=== PATIENT | male | born 1935 | race Caucasian/White ===

== ENCOUNTER → 2016-11-02 | Outpatient (CLI) | payer OTHER ==
[~2016-11-02] MED LIST: ADVIN25/60 INH; AMLO-110 PO; ASPEC81 PO; FINA5TAB PO; GLUCTAB18 PO; HYDR12.55 PO; METO-217 PO; MULTCHW PO; OMEG10007 PO; SIMV20TA2 PO; TIOTCAP INH
--- NOTE | 2016-11-02 12:23 | DIAGNOSTIC IMAGING REPORT ---
CT OF THE CHEST WITHOUT IV CONTRAST CLINICAL HISTORY: Solitary pulmonary nodule. COMPARISON STUDY: 08/09/2016 CT DOSE: 333.48 mGycm TECHNIQUE: CT of the thorax was performed from the thoracic inlet to the lung bases. Images are reviewed in the axial, sagittal, and coronal planes. IV contrast was not administered for this examination. FINDINGS: Thyroid: Imaged portions of the thyroid gland are normal in appearance. Thoracic aorta: The thoracic aorta is normal in course and caliber, noting standard 3 vessel arch anatomy. Heart: There are coronary artery calcifications present. Lungs and pleural spaces: No pleural effusions are visualized. There is pulmonary emphysema. There is no lobar consolidation. There is a calcified left upper lobe granuloma. There is lingular atelectasis and thickening of the major fissure. There is a stable 12 mm subpleural nodule within the right upper lobe. Mediastinum: There is a mildly enlarged 12 mm precarinal lymph node. Elizabeth: There is a borderline enlarged right hilar lymph node Axilla: There is no evidence of pathologic axillary lymphadenopathy. Upper abdomen: There is a 17 mm upper pole left renal cyst Skeletal structures: There are no lytic or blastic osseous lesions. IMPRESSION: 1. Pulmonary emphysema 2. Stable 12 mm subpleural nodule within the right upper lobe 3. Mildly enlarged precarinal lymph node, and borderline enlarged right hilar lymph node, similar to the prior study Electronically signed by: Dontrell Polanco M.D. 11/02/2016 12:21 PM Dictated Date/Time: 11/02/2016 12:16 PM
== END | disposition home or self-care (01) ==
LOC: C.CTS 12:00
PROVIDERS: ATTEND Internal Medicine
DX: R91.1 Solitary pulmonary nodule (principal); J43.9 Emphysema, unspecified

== ENCOUNTER → 2017-04-24 | Outpatient (CLI) | payer OTHER ==
--- NOTE | 2017-04-24 14:30 | DIAGNOSTIC IMAGING REPORT ---
CT OF THE CHEST WITHOUT IV CONTRAST CLINICAL HISTORY: Solitary pulmonary nodule. COMPARISON STUDY: Chest CT July 24, 2010 and November 02, 2016 and PET/CT August 31, 2016. CT DOSE: 277.54 mGy.cm TECHNIQUE: Axial images of the chest were obtained without IV contrast. Images were reviewed in the axial, sagittal, and coronal planes. IV contrast was not administered for this examination. A dose lowering technique was utilized adhering to the principles of ALARA. FINDINGS: No enlarged axillary, mediastinal or hilar lymph nodes are present. The size of the heart is normal. There is moderate coronary artery calcification. There is extensive atherosclerotic plaque of the thoracic aorta. A trace left pleural effusion is noted. There is also a trace right pleural effusion. No pneumothorax is present. There is severe upper lobe predominant emphysema. A 1.4 cm irregular subpleural right upper lobe nodule shown image 118 of 376 has slightly increased in size since prior exam of November 02, 2016. Minimal groundglass and tree-in-bud nodules within the lingula are likely infectious or inflammatory. Bilateral lower lobe ground glass opacities favor atelectasis. No suspicious osseous lesions are present. 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 IMPRESSION: 1. Minimal increase in size of a 1.4 cm irregular subpleural right upper lobe nodule. This lesion is suspicious for a neoplasm, likely within the adenocarcinoma spectrum. 2. No thoracic lymphadenopathy. 3. Severe emphysema. 4. Minimal ground glass opacity with tree-in-bud nodules within the lingula which favors an infectious/inflammatory etiology. Electronically signed by: Moe Agustin M.D. 04/24/2017 2:29 PM Dictated Date/Time: 04/24/2017 2:13 PM
== END | disposition home or self-care (01) ==
LOC: C.CTS 13:47
PROVIDERS: ATTEND Internal Medicine
DX: R91.1 Solitary pulmonary nodule (principal); J43.9 Emphysema, unspecified

== ENCOUNTER → 2017-10-13 | Outpatient (CLI) | payer OTHER ==
--- NOTE | 2017-10-13 18:00 | DIAGNOSTIC IMAGING REPORT ---
CHEST 2 VIEWS ROUTINE CLINICAL HISTORY: R05 Productive cough dyspnea COMPARISON STUDY: 08/09/2016 FINDINGS: Chronic emphysematous change. Chronic basilar fibrotic as well as diffuse interstitial change. No acute or interval finding. No well-defined focal infiltrate. IMPRESSION: Chronic and emphysematous change. No acute process. The above report was generated using voice recognition software. It may contain grammatical, syntax or spelling errors. Electronically signed by: Damian Long M.D. 10/13/2017 5:58 PM Dictated Date/Time: 10/13/2017 5:58 PM
== END | disposition home or self-care (01) ==
LOC: C.RAD 17:25
PROVIDERS: ATTEND Nurse Practitioner Adult Health
DX: R05 Cough (principal)

== ENCOUNTER → 2017-10-30 | Outpatient (CLI) | payer OTHER ==
--- NOTE | 2017-10-30 10:59 | DIAGNOSTIC IMAGING REPORT ---
(CHEST) THORAX WITHOUT CLINICAL HISTORY: 82 years-old Male presenting with R91.1 Solitary pulmonary [id number]. TECHNIQUE: Multidetector CT imaging of the chest was performed without the use of intravenous contrast. IV contrast: None. A dose lowering technique was used consistent with the principles of ALARA (as low as reasonably achievable). COMPARISON: 04/24/2017. CT DOSE (mGy.cm): The estimated cumulative dose is 333.57 mGy.cm. 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 On soft tissue windows, normal thyroid and thoracic inlet. No axillary, supraclavicular, or mediastinal lymphadenopathy. Evaluation of the tyrel limited without intravenous contrast. Atherosclerosis of the aorta. Normal heart size. Coronary artery calcification. No pericardial or pleural effusion. Upper abdomen normal. On lung windows, paraseptal and centrilobular emphysematous changes most pronounced at the upper lobes. Persistent peripheral/subpleural solid 1.4 cm nodule in the posterior right upper lobe (series 4 image 108), unchanged since prior exam. Bandlike opacities in the right middle lobe and lingula favor atelectasis or scarring. Calcified granuloma noted in the left upper lobe. Mild bronchial wall thickening noted. No new nodule. Layering debris noted in the lower trachea. On bone windows, degenerative changes of the spine. Deformities of several posterior left ribs suggest prior fractures. IMPRESSION: 1. Stable appearance of the peripheral/subpleural 1.4 cm right upper lobe solid nodule. However, this nodule is new since chest CT from 2009. Despite the absence of FDG avidity of the lesion, continued surveillance or tissue sampling recommended. This would likely be amenable to CT-guided biopsy. 2. No new nodule. 3. Emphysema. 4. Tracheal debris and bronchial wall thickening could suggest chronic aspiration. Please refer to below summary of Fleischner Society 2017 recommendations for follow-up of incidental CT nodules (H Xiomy et al. Guidelines for management of incidental pulmonary nodules detected on CT images: From the Fleischner Society 2017. Radiology 2017; 284: 228-243.) SOLID NODULES Single nodule; size < 6 mm * Low risk patients: No routine follow-up * High risk patients: Optional CT at 12 months Single nodule; size 6-8 mm * Low risk patients: CT at 6-12 months, then consider CT at 18-24 months * High risk patients: CT at 6-12 months, then at 18-24 months Single nodule; size > 8 mm * Either low or high risk patients: Considered CT at 3 months, PET/CT, or tissue sampling Multiple nodules; size < 6 mm * Low risk patients: No routine follow up * High risk patients: Optional CT at 12 months Multiple nodules; size 6-8 mm * Low risk patients: CT at 3-6 months, then consider CT at 18-24 months * High risk patients: CT at 3-6 months, then at 18-24 months Multiple nodules; size > 8 mm * Low risk patients: CT at 3-6 months, then consider at 18-24 months * High risk patients: CT at 3-6 months, then at 18-24 months Note: These guidelines apply to incidental nodules. These guidelines do not apply to patients younger than 35 years, immunocompromised patients, or patients with cancer. * Low risk patients: Minimal or absent history of smoking and/or other known risk factors * High risk patients: History of smoking, exposure to other carcinogens, emphysema, fibrosis, upper lobe location, family history of lung cancer, etc. * If a nodule up to 8 mm is partly solid or is ground glass, further follow-up is required after 24 months to exclude possible slow growing adenocarcinoma. SUBSOLID NODULES Single ground-glass nodule * Nodule size < 6 mm: No routine follow-up * Nodule size > or = 6 mm: CT at 6-12 months to confirm persistence, then CT every 2 years until 5 years Single part-solid nodule * Nodule size < 6 mm: No routine follow-up * Nodules size > or = 6 mm: CT at 3-6 months to confirm persistence. If unchanged and solid component remains < 6 mm, annual CT should be performed for 5 years Multiple nodules * Nodule size < 6 mm: CT at 3-6 months. If stable, consider CT at 2 and 4 years. * Nodules size > or = 6 mm: CT at 3-6 months. Subsequent management based on the most suspicious nodule(s) Electronically signed by: Ignacio Persaud M.D. 10/30/2017 10:58 AM Dictated Date/Time: 10/30/2017 10:50 AM
== END | disposition home or self-care (01) ==
LOC: C.CTS 10:33
PROVIDERS: ATTEND Internal Medicine
DX: R91.1 Solitary pulmonary nodule (principal)

== ENCOUNTER → 2017-12-20 | Outpatient (CLI) | payer OTHER | END | disposition home or self-care (01) | LOC: C.LAB 11:49 | PROVIDERS: ATTEND Physician Assistant | DX: R05 Cough (principal) ==

== ENCOUNTER 2020-01-18 05:47 | Inpatient (IN) ==
[2020-01-18] MEDS ORDERED: ALBUT/IPRATROP 3MG/0.5MG NEB 3 ML VIAL NEB ONE (06:01)
[2020-01-18] MEDS ORDERED: methylPREDNISolone 125 MG/2 ML VIAL IV STA (06:01)
[2020-01-18] MEDS ORDERED: HydrALAZINE HCL 20 MG/ML VIAL IV ONE (06:06)
[2020-01-18 06:22] LABS: Basophils # (auto) 0.06 K/uL (0-0.2); Basophils % (auto) 0.8 %; Eosinophils # (auto) 0.86 K/uL (0-0.5); Eosinophils % (auto) 10.9 %; Hematocrit (blood only) 52.6 % (42-52); Hemoglobin 17.2 g/dL (14.0-18.0); Immature Granulocytes # (auto) 0.02 K/uL (0.00-0.02); Immature Granulocytes % (auto) 0.3 %; Lymphocytes # (auto) 1.93 K/uL (1.2-3.4); Lymphocytes % (auto) 24.4 %; Mean Corpuscular Hemoglobin 30.6 pg (25-34); Mean Corpuscular Hgb Conc 32.7 g/dL (32-36); Mean Corpuscular Volume 93.6 fL (80-100); Mean Platelet Volume 9.2 fL (7.4-10.4); Monocytes # (auto) 0.54 K/uL (0.11-0.59); Monocytes % (auto) 6.8 %; Neutrophils % (auto) 56.8 %; Platelet Count 136 K/uL (130-400); RDW Coefficient of Variation 14.2 % (11.5-14.5); RDW Standard Deviation 48.5 fL (36.4-46.3); Red Blood Count 5.62 M/uL (4.7-6.1); White Blood Count 7.91 K/uL (4.8-10.8)
[2020-01-18 06:33] LABS: Partial Thromboplastin Ratio 1.1; Partial Thromboplastin Time 29.8 Seconds (21.0-31.0)
[2020-01-18 06:38] LABS: Alanine Aminotransferase 30 U/L (12-78); Aspartate Aminotransferase 27 U/L (15-37); BUN Creatinine Ratio 20.5 (10-20); Blood Urea Nitrogen 26 mg/dl (7-18); Calcium 9.7 mg/dl (8.5-10.1); Carbon Dioxide 27 mmol/L (21-32); Chloride 110 mmol/L (98-107); Creatinine Clr Calc Pharmacy 41.8 ml/min; Est GFR (Non-African American) 51.8; Glucose 143 mg/dl (70-99); Magnesium 2.3 mg/dl (1.8-2.4); Potassium 4.2 mmol/L (3.5-5.1); Sodium 142 mmol/L (136-145)
[2020-01-18 06:43] LABS: Alkaline Phosphatase 96 U/L (45-117); Bilirubin,Total 0.5 mg/dl (0.2-1); NT Pro B Type Natriuretic Pept 336 pg/ml (0-1800); Troponin I < 0.015 ng/ml (0-0.045)
--- NOTE | 2020-01-18 07:05 | Emergency Department Note ---
History of Present Illness General Chief complaint: Shortness of Breath/Dyspnea Stated complaint: SOB Source: patient and EMS Mode of arrival: EMS Limitations: no limitations History of Present Illness Provider complaint: Shortness of breath Onset (ago): hour(s) This patient is an 84-year-old male who presents to the emergency department with complaints of increasing shortness of breath and cough. Patient states he has a history of COPD and quit smoking in the . Patient feels that the symptoms were rather sudden in onset. He denies any significant sputum, fevers or pain in the chest. Patient denies any recent sick contacts. Home Medications Home Medications Medication Instructions Recorded Confirmed Type glucosamine-chondroitin 250 mg-200 1 tab PO BID tab 05/17/19 01/18/20 History mg tablet multivitamin 1 tab PO QAM 05/17/19 01/18/20 History omega-3 acid ethyl esters 1 gram 1 cap PO QAM cap 05/17/19 01/18/20 History capsule aspirin [Aspirin Low Dose] 81 mg PO QAM 06/25/19 01/18/20 History amlodipine 5 mg tablet 5 mg PO DAILY #90 tab 11/01/19 01/18/20 Rx diclofenac sodium 1 % topical gel 4 gm TOP QID PRN gm 12/04/19 01/18/20 History glycopyrrolate 9 mcg-formoterol 2 puffs INH BID #3 inhaler 12/04/19 01/18/20 Rx 4.8 mcg HFA aerosol inhaler hydrochlorothiazide 12.5 mg tablet 12.5 mg PO DAILY #90 tab 12/05/19 01/18/20 Rx guaifenesin 600 mg tablet, 600 mg PO BID #180 tab 12/12/19 01/18/20 Rx extended release 12 hr finasteride 5 mg tablet 5 mg PO DAILY #90 tab 12/20/19 01/18/20 Rx metoprolol succinate 100 mg 100 mg PO DAILY #90 tab 01/07/20 01/18/20 Rx tablet,extended release 24 hr albuterol sulfate 90 mcg/actuation 2 puffs INH Q4H PRN #3 inhaler 01/13/20 01/18/20 Rx aerosol inhaler prednisone 10 mg tablet See Rx Instructions PO DAILY #36 01/17/20 01/18/20 Rx tab green tea leaf extract [Green Tea] 500 mg PO DAILY 01/18/20 01/18/20 History oyjoycoi-vni-XL-lycopen-lutein 1 tab PO DAILY 01/18/20 01/18/20 History [Centrum Silver Ultra Men's] saw palmto frt xtr-zinc [place] 3 cap PO DAILY 01/18/20 01/18/20 History [Saw Jones Extract (w-zinc)] Allergies Allergy/AdvReac Type Severity Reaction Status Date / Time No Known Drug Allergies Allergy Unknown Verified 01/18/20 06:55 Past Med/Surg History Medical History AAA (abdominal aortic aneurysm) (Inactive) Aorto-iliac disease (Inactive) BPH (benign prostatic hyperplasia) Chronic obstructive pulmonary disease follows [facility]. rarely uses rescue inh Glaucoma of both eyes Hyperlipidemia Hypertension (Chronic) NSVT (nonsustained ventricular tachycardia) (Chronic) pt unaware of this Osteoarthritis Solitary pulmonary nodule follows [facility] [place] Surgical History H/O aortic aneurysm repair Oct 1999- suzy romero / follows Dr. Olivares [facility] [place] History of AAA (abdominal aortic aneurysm) repair (Inactive) History of back surgery (Resolved) History of cataract surgery LEFT History of colonoscopy History of herniorrhaphy (Resolved) History of lumbar laminectomy Inguinal hernia Family History Brother Hypertension Osteoarthritis Unknown Cancer Other Emphysema of lung Social History Preferred Language: Georgian Communication Ability: Effective Decision Analyst Required: No Beliefs That Will Affect Care: None marital status: Current Living Situation: Spouse Feels Safe at Home: Yes Smoking Status: Never smoker Tobacco Type: cigarettes ; Cigarettes Per Day: 20 ; Second Hand Exposure: No ; Hx Alcohol Use: Yes Alcohol type: beer and hard liquor Hx Substance Use: No Seatbelt Use: always Review of Systems See HPI for pertinent positives & negatives. and A total of 10 systems reviewed and were otherwise negative Physical Exam Vital Signs Vital Signs - 24 hr 01/18/20 05:51 01/18/20 06:03 01/18/20 06:05 Temperature 36.7 C Temperature Source Oral Pulse Rate 100 H 95 H Pulse Rate [Left Finger] Respiratory Rate 24 23 Respiratory Effort / Characteristics Blood Pressure 217/106 H 219/119 H Blood Pressure Mean 143 180 Blood Pressure Position Sitting Pulse Oximetry 85 L 85 L 93 Oxygen Delivery Method Room Air Nasal Cannula Oxygen Flow Rate Sepsis Recent Fever Within 48 Hours No Sepsis New/Unexplained Change in Mental Status No Sepsis Action Taken by Nursing No Action Required Oxygen Flow Rate - Titration 2 Pulse Oximetry Post Tiitration 91 01/18/20 06:08 01/18/20 06:15 01/18/20 06:16 Temperature Temperature Source Pulse Rate 90 Pulse Rate [Left Finger] Respiratory Rate 24 Respiratory Effort / Characteristics Labored Blood Pressure 192/98 H Blood Pressure Mean 115 Blood Pressure Position Pulse Oximetry 95 Oxygen Delivery Method Nasal Cannula Oxygen Flow Rate Sepsis Recent Fever Within 48 Hours Sepsis New/Unexplained Change in Mental Status Sepsis Action Taken by Nursing Oxygen Flow Rate - Titration Pulse Oximetry Post Tiitration 01/18/20 06:20 01/18/20 06:30 Temperature Temperature Source Pulse Rate 88 Pulse Rate [Left Finger] 88 Respiratory Rate 26 H 26 H Respiratory Effort / Characteristics Spontaneous Labored Blood Pressure 187/97 H Blood Pressure Mean 132 Blood Pressure Position Pulse Oximetry 95 97 Oxygen Delivery Method Nasal Cannula Oxygen Flow Rate 3 Sepsis Recent Fever Within 48 Hours Sepsis New/Unexplained Change in Mental Status Sepsis Action Taken by Nursing Oxygen Flow Rate - Titration Pulse Oximetry Post Tiitration Vital signs reviewed. General: Generally well-appearing 84-year-old male, increased work of breathing. HEENT: No scleral icterus, PERRLA, neck supple. Atraumatic. Cardiovascular: Regular rate and rhythm, no extra sounds. Pulmonary: Coarse breath sounds bilaterally, increased work of breathing. Abdomen: Soft, nontender, nondistended, positive bowel sounds. Musculoskeletal: Atraumatic, no peripheral edema. Neurologic: Patient awake alert and oriented x 3 Skin: Warm, dry, no rash Course Administered Medications Discontinued Medications Albuterol (Duoneb) 12 ml NEB ONE ONE Stop: 01/18/20 06:02 Last Admin: 01/18/20 06:19 Dose: 12 ml Documented by: [id number] Hydralazine HCl (Hydralazine Hcl) 10 mg IV NOW ONE Stop: 01/18/20 06:07 Last Admin: 01/18/20 06:13 Dose: 10 mg Documented by: [id number] Methylprednisolone (Solumedrol) 125 mg IV NOW STA Stop: 01/18/20 06:02 Last Admin: 01/18/20 06:13 Dose: 125 mg Documented by: [id number] Medical Decision Making Differential Diagnosis Differential diagnosis: Etiologies such as infections, reactive airway disease, COPD, pneumonia, pleural effusion, pulmonary edema, ARDS, pneumothorax, CHF, cardiac ischemia, cardiac tamponade, dysrhythmia, anemia, pulmonary embolism, musculoskeletal, gastrointestinal process, as well as others were entertained. Medical Records Attestation: I reviewed the patient's medical records. Home Medications Current Medication List: was personally reviewed by me Laboratory Data Attestation: I reviewed the patient's lab results. Result diagrams: 01/18/20 06:15 01/18/20 06:15 Lab Results 01/18/20 01/18/20 01/18/20 Range/Units 06:15 06:15 06:15 WBC 7.91 (4.8-10.8) K/uL RBC 5.62 (4.7-6.1) M/uL Hgb 17.2 (14.0-18.0) g/dL Hct 52.6 H (42-52) % MCV 93.6 (80-100) fL MCH 30.6 (25-34) pg MCHC 32.7 (32-36) g/dL RDW Std Deviation 48.5 H (36.4-46.3) fL RDW Coeff of Conchis 14.2 (11.5-14.5) % Plt Count 136 (130-400) K/uL MPV 9.2 (7.4-10.4) fL Immature Gran % (Auto) 0.3 % Neut % (Auto) 56.8 % Lymph % (Auto) 24.4 % Callaway % (Auto) 6.8 % Eos % (Auto) 10.9 % Baso % (Auto) 0.8 % Immature Gran # (Auto) 0.02 (0.00-0.02) K/uL Neut # (Auto) 4.50 (1.4-6.5) K/uL Lymph # (Auto) 1.93 (1.2-3.4) K/uL Callaway # (Auto) 0.54 (0.11-0.59) K/uL Eos # (Auto) 0.86 H (0-0.5) K/uL Baso # (Auto) 0.06 (0-0.2) K/uL PT 11.0 (9.0-12.0) Seconds INR 1.0 (0.9-1.1) APTT 29.8 (21.0-31.0) Seconds PTT Ratio 1.1 Sodium 142 (136-145) mmol/L Potassium 4.2 (3.5-5.1) mmol/L Chloride 110 H (98-107) mmol/L Carbon Dioxide 27 (21-32) mmol/L Anion Gap 5.0 (3-11) BUN 26 H (7-18) mg/dl Creatinine 1.25 (0.6-1.4) mg/dl Est Cr Clr Drug Dosing 41.8 ml/min Est GFR ( Amer) 60.0 Est GFR (Non-Af Amer) 51.8 BUN/Creatinine Ratio 20.5 H (10-20) Glucose 143 H (70-99) mg/dl Calcium 9.7 (8.5-10.1) mg/dl Magnesium 2.3 (1.8-2.4) mg/dl Total Bilirubin 0.5 (0.2-1) mg/dl AST 27 (15-37) U/L ALT 30 (12-78) U/L Alkaline Phosphatase 96 (45-117) U/L Troponin I < 0.015 (0-0.045) ng/ml NT-Pro-B Natriuret Pep 336 (0-1800) pg/ml Total Protein 8.0 (6.4-8.2) gm/dl Albumin 4.0 (3.4-5.0) gm/dl Globulin 4.0 (2.5-4.0) gm/dl Albumin/Globulin Ratio 1.0 (0.9-2) Imaging Data Radiologist's Impression: Chest x-ray to my interpretation reveals no focal lung consolidation or failure, likely chronic perihilar interstitial changes. ECG Data Attestation: I personally reviewed and interpreted this ECG as follows: Indication: + SOB/dyspnea Rate (beats per minute): 103 Rhythm: + atrial fibrillation ECG Intervals/blocks: + Normal QT ECG ST segments: + T-wave inversions, + Nonspecific ST abnormalities and + repolarization abnormalities Blood Pressure Blood Pressure Findings: Normal blood pressure Blood Pressure Disposition: Referred to patients primary care provider JUSTEN Narrative An order for cardiac monitoring was placed and the patient is found to be in a sinus tachycardia at 100 bpm. IV access was obtained and laboratory work was drawn. The patient was placed on the wharf tender head. EKG reveals a sinus tachycardia without evidence of acute ischemia. Patient was placed on an hour-long DuoNeb treatment and given 125 mg of IV Solu-Medrol. Chest x-ray was performed and there is no evidence of focal infiltrate or failure. Patient was somewhat hypoxic and placed on nasal cannula oxygen with success. He will be evaluated by the hospitalist service for further management. Impression & Plan COPD exacerbation Discharge Plan Visit Data Chief Complaint: Shortness of Breath/Dyspnea Stated Complaint: SOB ED Provider: July Shah Discharge Problem: COPD exacerbation Forms Stand Alone Forms: Heekya Prescriptions Prescriptions: No Action amlodipine 5 mg tablet 5 mg PO DAILY Qty: 90 RF: 3 hydrochlorothiazide 12.5 mg tablet 12.5 mg PO DAILY Qty: 90 RF: 3 guaifenesin [Mucinex] 600 mg tablet extended release 12hr 600 mg PO BID Qty: 180 RF: 1 metoprolol succinate 100 mg tablet extended release 24 hr 100 mg PO DAILY Qty: 90 RF: 3 albuterol sulfate [Ventolin HFA] 90 mcg/actuation HFA aerosol inhaler 2 puffs INH Q4H PRN (Reason: Shortness Of Breath) Qty: 3 RF: 1 prednisone 10 mg tablet See Rx Instructions PO DAILY Qty: 36 RF: 0 finasteride 5 mg tablet 5 mg PO DAILY Qty: 90 RF: 3 diclofenac sodium 1 % gel 4 gm TOP QID PRN (Reason: pain) RF: 0 Bevespi Aerosphere 9-4.8 mcg HFA aerosol inhaler 2 puffs INH BID Qty: 3 RF: 1 omega-3 acid ethyl esters 1 gram capsule 1 cap PO QAM RF: 0 glucosamine-chondroitin 250-200 mg tablet 1 tab PO BID RF: 0 multivitamin [Daily Multi-Vitamin] tablet 1 tab PO QAM RF: 0 Saw Jones Extract (w-zinc) 160-15 mg Capsule 3 cap PO DAILY RF: 0 green tea leaf extract [Green Tea] 250 mg Capsule 500 mg PO DAILY RF: 0 Centrum Silver Ultra Men's 300-600-300 mcg Tablet 1 tab PO DAILY RF: 0 aspirin [Aspirin Low Dose] 81 mg Tablet,Delayed Release (Dr/Ec) 81 mg PO QA RF: 0
--- NOTE | 2020-01-18 07:44 | XRay Report ---
XR chest 1V portable CLINICAL HISTORY: 84 years-old Male presenting with Dyspnea. TECHNIQUE: Portable upright AP view of the chest was obtained. COMPARISON: 08/09/[address] from 11/19/2018. FINDINGS: Atherosclerosis of the aortic arch. Cardiac silhouette normal in size. Lungs may be mildly hyperinfla kaelyn. The subpleural right upper lobe nodule evident on prior CT is not well demonstrated by radiograp h. A possible candidate opacity is noted. No new focal opacity. No large effusion or pneumothorax. Fr acture deformities of posterior left ribs. Upper abdomen normal. IMPRESSION: 1. Findings suggest emphysema. No focal infiltrate to suggest pneumonia. 2. Subpleural right upper lung nodule evident on prior CT is not well demonstrated. ACT 112: Negative or not required by law. Electronically signed by: Ignacio Persaud M.D. 01/18/2020 7:43 AM
--- NOTE | 2020-01-18 08:21 | History & Physical Report ---
Date of Service January 18, 2020 Assessment & Plan (1) COPD exacerbation: Improving s/p O2, nebs, steroids in the ED c/w prior episodes per pt CXR: neg for acute CBC, PRP, trop, BNP neg Nebs scheduled, solumed 40mg BID Pt has already filled a prednisone taper [employer]IST and can use this on d/c (2) 1st degree AV block: Not seen on prior EKG in MUSE Tele monitor overnight Repeat EKG in AM No sx c/w symptomatic 1st degree AVB (3) Pulmonary nodule: Seen on prior imaging, not well visualized on CXR in ED If ongoing issues, t/c CT chest as this could be part of COPD exacerbation Quit smoking in 1999 (4) HTN (hypertension): continue home meds (5) Hyperlipidemia: continue home meds (6) BPH w urinary obs/LUTS: continue home meds (7) AAA (abdominal aortic aneurysm): s/p repair in 1999 Pt states he was told this was stable and no further f/u needed (8) Horseshoe kidney: noted (9) DVT prophylaxis: Lovenox for DVT proph History of Present Illness Primary Care Provider: Ignacio Alonzo MD 84 y/o M c/o SOB. Pt states that he had been doing fine with his breathing for quite some time. He had not used his albuterol for months, but on , he noted some SOB with exertion only. He used his albuterol inhaler and this helped that day, however yesterday he developed further SOB at rest and the albuterol was not as helpful. He follows with Vinnie Borja for his COPD and called the office. A prescription for a prednisone taper was called in for him, however he was waiting to start it until this AM and never took it. He states that his breathing got worse overnight and the albuterol was not helping him at all today, so he came to the ED. He states this feels similar to prior COPD exacerbations. Pt is not on home O2. He has had a bit of sputum production after prolonged SOB and wheezing, but no coughing outside of this. Pt denies fever, chest pain, abd pain, n/v/c/d, LE pain or swelling. Pt has been eating without issue. No loss of smell or taste. He states that his fell and broke 2 ribs recently, but otherwise is at her baseline. He has no sick contacts or travel. Pt was given nebs and steroids in the ED and states he feels "99% better". He has no current SOB or wheezing. Allergies Allergy/AdvReac Type Severity Reaction Status Date / Time No Known Drug Allergies Allergy Unknown Verified 01/18/20 06:55 Home Medications Home Medications Medication Instructions Recorded Confirmed Type glucosamine-chondroitin 250 mg-200 1 tab PO BID tab 05/17/19 01/18/20 History mg tablet multivitamin 1 tab PO QAM 05/17/19 01/18/20 History omega-3 acid ethyl esters 1 gram 1 cap PO QAM cap 05/17/19 01/18/20 History capsule aspirin [Aspirin Low Dose] 81 mg PO QAM 06/25/19 01/18/20 History amlodipine 5 mg tablet 5 mg PO DAILY #90 tab 11/01/19 01/18/20 Rx diclofenac sodium 1 % topical gel 4 gm TOP QID PRN gm 12/04/19 01/18/20 History glycopyrrolate 9 mcg-formoterol 2 puffs INH BID #3 inhaler 12/04/19 01/18/20 Rx 4.8 mcg HFA aerosol inhaler hydrochlorothiazide 12.5 mg tablet 12.5 mg PO DAILY #90 tab 12/05/19 01/18/20 Rx guaifenesin 600 mg tablet, 600 mg PO BID #180 tab 12/12/19 01/18/20 Rx extended release 12 hr finasteride 5 mg tablet 5 mg PO DAILY #90 tab 12/20/19 01/18/20 Rx metoprolol succinate 100 mg 100 mg PO DAILY #90 tab 01/07/20 01/18/20 Rx tablet,extended release 24 hr albuterol sulfate 90 mcg/actuation 2 puffs INH Q4H PRN #3 inhaler 01/13/20 01/18/20 Rx aerosol inhaler prednisone 10 mg tablet See Rx Instructions PO DAILY #36 01/17/20 01/18/20 Rx tab green tea leaf extract [Green Tea] 500 mg PO DAILY 01/18/20 01/18/20 History cnkytcbo-sbn-WD-lycopen-lutein 1 tab PO DAILY 01/18/20 01/18/20 History [Centrum Silver Ultra Men's] saw palmto frt xtr-zinc [place] 3 cap PO DAILY 01/18/20 01/18/20 History [Saw [place] Extract (w-zinc)] Past Med/Surg History Medical History AAA (abdominal aortic aneurysm) (Inactive) Aorto-iliac disease (Inactive) BPH (benign prostatic hyperplasia) Chronic obstructive pulmonary disease follows Jovany Borja. rarely uses rescue inh Glaucoma of both eyes Hyperlipidemia Hypertension (Chronic) NSVT (nonsustained ventricular tachycardia) (Chronic) pt unaware of this Osteoarthritis Solitary pulmonary nodule follows [facility] [place] Surgical History H/O aortic aneurysm repair Oct 1999- suzy romero / follows Dr. Olivares [facility] [place] History of AAA (abdominal aortic aneurysm) repair (Inactive) History of back surgery (Resolved) History of cataract surgery LEFT History of colonoscopy History of herniorrhaphy (Resolved) History of lumbar laminectomy Inguinal hernia Family History (Updated 01/18/20 @ 08:17 by Ivet Hu DO) Brother Hypertension Osteoarthritis Unknown Cancer Other Emphysema of lung Denies family history of Myocardial infarction Stroke Social History (Updated 01/18/20 @ 08:19 by Ivet Hu DO) Preferred Language: Nepali Communication Ability: Effective Shirt Sewer Required: No Beliefs That Will Affect Care: None marital status: Current Living Situation: Spouse Feels Safe at Home: Yes Smoking Status: Former smoker Tobacco Type: cigarettes ; packs per day: 1 ; Smoking End Date: 1999 ; Second Hand Exposure: No ; Hx Alcohol Use: Yes Alcohol type: beer and hard liquor Alcohol Intake Frequency Comment: 2 vodka cranberry drinks maybe 3-4 days a week Hx Substance Use: No Seatbelt Use: always Review of Systems Review of Systems: Pertinent positives and negatives reviewed in HPI--all others negative Physical Exam Constitutional: WD/WN, vitals as above Eyes: normal visual rivera by confrontation and + anicteric sclerae Neck: normal visual inspection and trachea midline Respiratory: normal respiratory effort; no respiratory distress Auscultation: + wheezes (diffuse, expiratory only, mild); no crackles Cardiovascular: Rate/Rhythm: regular rate and regular rhythm Gastrointestinal (Abdomen): Inspection/Auscultation: abdomen not distended Percussion/Palpation: abdomen soft; abdomen nontender Musculoskeletal: Head/Neck/Chest: normocephalic and head atraumatic negative for edema, peripheral pulses intact Skin: no rashes, warm and dry Neurologic: awake; not confused Speech / Cognition: normal speech Psychiatric: A+Ox3, euthymic affect Results & Data Results & Data ([facility]) Vital Signs (Past 12 Hours) Vital Signs Temp Pulse Pulse Resp BP Pulse Ox 01/18/20 07:30 87 24 132/66 95 01/18/20 07:00 86 24 155/78 H 95 01/18/20 06:30 88 26 H 187/97 H 97 01/18/20 06:20 88 26 H 95 01/18/20 06:16 90 24 192/98 H 95 01/18/20 06:05 95 H 23 219/119 H 93 01/18/20 06:03 85 L 01/18/20 05:51 36.7 C 100 H 24 217/106 H 85 L Diagnostic Findings CXR: neg for acute ECG Findings: + 1st degree AV block Code Status & VTE Plan Code Status Full code, although pt states no prolonged mechanical life support, feeding tubes, etc VTE Prophylaxis Plan VTE Prophylaxis will be ordered: Yes PG Care Time/CCT Total # of Minutes Spent Total Time Spent with Patient: Total time spent is greater than 50% in coordination of care (as documented) at patient's floor/unit and/or counseling patient: Coding Level of Care Code 14574 Initial Inpt Care Lvl 3 Diagnoses COPD exacerbation J44.1 1st degree AV block I44.0 Pulmonary nodule R91.1 HTN (hypertension) I10 Hypertension type: essential hypertension Hyperlipidemia E78.00; E78.0 Hyperlipidemia type: pure hypercholesterolemia BPH w urinary obs/LUTS N40.1; N13.8 AAA (abdominal aortic aneurysm) I71.4 Horseshoe kidney Q63.1 DVT prophylaxis Z29.9 (1) HTN (hypertension) Hypertension type: essential hypertension Qualified Code(s): I10 - Essential (primary) hypertension (2) Hyperlipidemia Hyperlipidemia type: pure hypercholesterolemia Qualified Code(s): E78.00 - Pure hypercholesterolemia, unspecified; E78.0 - Pure hypercholesterolemia
[2020-01-18] MEDS ORDERED: [UNRECOGNIZED DRUG - OTHER] PO SCH (10:05)
[2020-01-18] MEDS ORDERED: ALBUTEROL HFA 8 GM INHALER INH PRN (10:05)
[2020-01-18] MEDS ORDERED: DICLOFENAC SOD 1% GEL 100 GM TUBE EXT PRN (10:05)
[2020-01-18] MEDS ORDERED: NON-FORMULARY MEDICATION (Glucosamine-Chondroitin 1 TAB) PO SCH (10:05)
[2020-01-18] MEDS ORDERED: [UNRECOGNIZED DRUG - OTHER] PO SCH (10:05)
[2020-01-18] MEDS ORDERED: ONDANSETRON INJ 2 MG/ML 2 ML VIAL IV PRN (10:05)
[2020-01-18] MEDS ORDERED: ACETAMINOPHEN 325 MG TAB PO PRN (10:05)
[2020-01-18] MEDS ORDERED: MAGNESIUM HYDROXIDE SUSP 30 ML UDC PO PRN (10:05)
[2020-01-18] MEDS ORDERED: MULTIVIT MIN FA LYCOPEN LUTEIN PO SCH (10:05)
--- NOTE | 2020-01-18 10:50 | Electrocardiogram Report ---
Test Reason : Blood Pressure : / mmHG Vent. Rate : 091 BPM Atrial Rate : 091 BPM P-R Int : 216 ms QRS Dur : 076 ms QT Int : 352 ms P-R-T Axes : 074 062 062 degrees QTc Int : 432 ms Poor data quality, interpretation may be adversely affected Sinus rhythm with 1st degree A-V block Nonspecific ST abnormality Abnormal ECG When compared with ECG of 09-AUG-2016 12:35, Premature atrial complexes are no longer Present MI interval has increased Vent. rate has increased BY 33 BPM Confirmed by Roni Samaniego ([id number]) on 01/18/2020 10:50:33 AM Referred By: Confirmed By:Angus Samaniego
[2020-01-18] MEDS: ALBUT/IPRATROP 3MG/0.5MG NEB 3 ML VIAL NEB SCH ×4 (11:05→22:51)
[2020-01-18] MEDS: UMECLIDINIUM/VILANTEROL 62.5/25MCG 7 PUFFS/INHALER INH SCH (11:50)
[2020-01-18] MEDS: AMLODIPINE BESYLATE 5 MG TAB PO SCH (11:51)
[2020-01-18] MEDS: ENOXAPARIN INJ 40 MG/0.4 ML SYR SQ SCH (11:51)
[2020-01-18] MEDS: METOPROLOL SUCC 50MG EXT REL TAB PO SCH (11:51)
[2020-01-18] MEDS: OMEGA-3 (PURIFIED FISH OIL) 1 GM CAP PO SCH (11:51)
[2020-01-18] MEDS: ASPIRIN 81 MG ECTAB PO SCH (11:52)
[2020-01-18] MEDS: MULTIVITAMIN TAB PO SCH (11:52)
[2020-01-18] MEDS: hydroCHLOROthiazide 25 MG TAB PO SCH (11:52)
[2020-01-18] MEDS: guaiFENesin 600 MG TABCR PO SCH ×2 (11:52→20:01)
[2020-01-18] MEDS: FINASTERIDE 5 MG TAB PO SCH (11:52)
[2020-01-18 14:00] LABS: Appearance Urine Clear (Clear); Bilirubin Urine Negative (Negative); Blood Urine Negative (Negative); Color Urine Yellow; Glucose Urine UA Negative (Negative); Ketones Urine 1+ (Negative); Leukocyte Esterase Urine Trace (Negative); Nitrite Urine Negative (Negative); Protein Urine 2+ (Negative); RBC Urine Automated 0-4 /hpf (0-4); Urobilinogen Urine Negative (Negative)
[2020-01-18 14:32] LABS: Bacteria Urine Automated 1+ (Negative)
[2020-01-18] MEDS: methylPREDNISolone 40 MG in SYRINGE 0 ML IV SCH (16:48)
[2020-01-19] MEDS: ALBUT/IPRATROP 3MG/0.5MG NEB 3 ML VIAL NEB SCH ×6 (03:39→23:04)
[2020-01-19] MEDS: methylPREDNISolone 40 MG in SYRINGE 0 ML IV SCH ×2 (06:14→18:28)
[2020-01-19 07:03] LABS: Creatinine Clr Calc Pharmacy 34.4 ml/min; Est GFR (African American) 47.8; Est GFR (Non-African American) 41.2
[2020-01-19] MEDS: UMECLIDINIUM/VILANTEROL 62.5/25MCG 7 PUFFS/INHALER INH SCH (08:39)
[2020-01-19] MEDS: guaiFENesin 600 MG TABCR PO SCH ×2 (08:40→20:43)
[2020-01-19] MEDS: OMEGA-3 (PURIFIED FISH OIL) 1 GM CAP PO SCH (08:41)
[2020-01-19] MEDS: ASPIRIN 81 MG ECTAB PO SCH (08:41)
[2020-01-19] MEDS: AMLODIPINE BESYLATE 5 MG TAB PO SCH (08:41)
[2020-01-19] MEDS: FINASTERIDE 5 MG TAB PO SCH (08:41)
[2020-01-19] MEDS: MULTIVITAMIN TAB PO SCH (08:41)
[2020-01-19] MEDS: ENOXAPARIN INJ 40 MG/0.4 ML SYR SQ SCH (08:41)
[2020-01-19] MEDS: METOPROLOL SUCC 50MG EXT REL TAB PO SCH (08:41)
[2020-01-19] MEDS: hydroCHLOROthiazide 25 MG TAB PO SCH (10:42)
--- NOTE | 2020-01-19 11:19 | Electrocardiogram Report ---
Test Reason : Blood Pressure : / mmHG Vent. Rate : 075 BPM Atrial Rate : 075 BPM P-R Int : 180 ms QRS Dur : 078 ms QT Int : 408 ms P-R-T Axes : 061 080 081 degrees QTc Int : 455 ms Normal sinus rhythm Nonspecific ST abnormality Normal ECG When compared with ECG of 18-JAN-2020 06:08, MT interval has decreased Minor ST segement changes in the anterior precordial leads. Confirmed by Roni Samaniego ([id number]) on 01/19/2020 11:19:22 AM Referred By: REFERRED SELF Confirmed By:Angus Samaniego
--- NOTE | 2020-01-19 14:53 | Hospitalist Progress Note ---
Date of Service January 19, 2020 Assessment & Plan (1) COPD exacerbation: Improving s/p O2, nebs, steroids c/w prior episodes per pt CXR: neg for acute CBC, PRP, trop, BNP neg Nebs scheduled, solumed 40mg BID Wean O2, does not use at home Pt has already filled a prednisone taper [employer] and can use this on d/c (2) 1st degree AV block: Not seen on prior EKG in [facility]USE Tele monitor overnight Repeat EKG is NSR No sx c/w symptomatic 1st degree AVB that would require intervention Can d/c tele (3) Pulmonary nodule: Seen on prior imaging, not well visualized on CXR in ED If ongoing issues, t/c CT chest as this could be part of COPD exacerbation Quit smoking in 1999 (4) HTN (hypertension): continue home meds (5) Hyperlipidemia: continue home meds (6) BPH w urinary obs/LUTS: continue home meds (7) AAA (abdominal aortic aneurysm): s/p repair in 1999 Pt states he was told this was stable and no further f/u needed (8) Horseshoe kidney: noted (9) DVT prophylaxis: Lovenox for DVT proph Admission and Anticipated Discharge Date Admission Date: January 18, 2020 Subjective Pt is feeling much better overall. Still with some SOB. Has not been without O2 since admission. Tolerating PO without issue. Pt denies fever, chest pain, abd pain, n/v/c/d, LE pain or swelling. Review of Systems Review of Systems: Pertinent positives and negatives reviewed in HPI--all others negative Physical Exam Constitutional: WD/WN, vitals as above Eyes: normal visual rivera by confrontation and + anicteric sclerae Neck: normal visual inspection and trachea midline Respiratory: normal respiratory effort; no respiratory distress Auscultation: + wheezes (diffuse, expiratory only--improving); no crackles Cardiovascular: Rate/Rhythm: regular rate and regular rhythm Gastrointestinal (Abdomen): Inspection/Auscultation: abdomen not distended Percussion/Palpation: abdomen soft; abdomen nontender Musculoskeletal: Head/Neck/Chest: normocephalic and head atraumatic Skin: no rashes, warm and dry Neurologic: awake; not confused Speech / Cognition: normal speech Psychiatric: A+Ox3, euthymic affect Results & Data Results & Data ([facility]) Vital Signs (Past 12 Hours) Vital Signs Temp Pulse Pulse Resp BP Pulse Ox 01/19/20 11:14 36.3 C L 74 19 148/53 H 94 01/19/20 10:53 63 18 94 01/19/20 08:16 36.4 C L 83 20 152/74 H 91 01/19/20 07:12 77 01/19/20 07:01 84 18 96 01/19/20 04:36 36.5 C 74 18 158/73 H 94 01/19/20 03:39 76 18 96 PG Care Time/CCT Total # of Minutes Spent Total Time Spent with Patient: Total time spent is greater than 50% in coordination of care (as documented) at patient's floor/unit and/or counseling patient: Coding Level of Care Code 18169 Subseq Hosp Care Lvl 3 Diagnoses COPD exacerbation J44.1 1st degree AV block I44.0 Pulmonary nodule R91.1 HTN (hypertension) I10 Hypertension type: essential hypertension Hyperlipidemia E78.00; E78.0 Hyperlipidemia type: pure hypercholesterolemia BPH w urinary obs/LUTS N40.1; N13.8 AAA (abdominal aortic aneurysm) I71.4 Horseshoe kidney Q63.1 DVT prophylaxis Z29.9 (1) HTN (hypertension) Hypertension type: essential hypertension Qualified Code(s): I10 - Essential (primary) hypertension (2) Hyperlipidemia Hyperlipidemia type: pure hypercholesterolemia Qualified Code(s): E78.00 - Pure hypercholesterolemia, unspecified; E78.0 - Pure hypercholesterolemia
[2020-01-20] MEDS: ALBUT/IPRATROP 3MG/0.5MG NEB 3 ML VIAL NEB SCH ×3 (03:20→11:41)
[2020-01-20] MEDS: methylPREDNISolone 40 MG in SYRINGE 0 ML IV SCH (06:29)
[2020-01-20 07:50] LABS: BUN Creatinine Ratio 23.1 (10-20); Creatinine Clr Calc Pharmacy 33.7 ml/min; Est GFR (African American) 46.7; Est GFR (Non-African American) 40.3; Potassium 4.3 mmol/L (3.5-5.1)
[2020-01-20] MEDS: UMECLIDINIUM/VILANTEROL 62.5/25MCG 7 PUFFS/INHALER INH SCH (09:32)
[2020-01-20] MEDS: guaiFENesin 600 MG TABCR PO SCH (09:33)
[2020-01-20] MEDS: ASPIRIN 81 MG ECTAB PO SCH (09:33)
[2020-01-20] MEDS: hydroCHLOROthiazide 25 MG TAB PO SCH (09:33)
[2020-01-20] MEDS: ENOXAPARIN INJ 40 MG/0.4 ML SYR SQ SCH (09:34)
[2020-01-20] MEDS: METOPROLOL SUCC 50MG EXT REL TAB PO SCH (09:34)
[2020-01-20] MEDS: FINASTERIDE 5 MG TAB PO SCH (09:34)
[2020-01-20] MEDS: AMLODIPINE BESYLATE 5 MG TAB PO SCH (09:34)
[2020-01-20] MEDS: MULTIVITAMIN TAB PO SCH (09:34)
[2020-01-20] MEDS: OMEGA-3 (PURIFIED FISH OIL) 1 GM CAP PO SCH (09:34)
--- NOTE | 2020-01-20 11:25 | Discharge Summary ---
Date of Service January 20, 2020 Admission HPI Per Admitting Provider 84 y/o M c/o SOB. Pt states that he had been doing fine with his breathing for quite some time. He had not used his albuterol for months, but on , he noted some SOB with exertion only. He used his albuterol inhaler and this helped that day, however yesterday he developed further SOB at rest and the albuterol was not as helpful. He follows with Vinnie Borja for his COPD and called the office. A prescription for a prednisone taper was called in for him, however he was waiting to start it until this AM and never took it. He states that his breathing got worse overnight and the albuterol was not helping him at all today, so he came to the ED. He states this feels similar to prior COPD exacerbations. Pt is not on home O2. He has had a bit of sputum production after prolonged SOB and wheezing, but no coughing outside of this. Pt denies fever, chest pain, abd pain, n/v/c/d, LE pain or swelling. Pt has been eating without issue. No loss of smell or taste. He states that his fell and broke 2 ribs recently, but otherwise is at her baseline. He has no sick contacts or travel. Pt was given nebs and steroids in the ED and states he feels "99% better". He has no current SOB or wheezing. Principal Diagnosis Pt is feeling much better. He has had not SOB at rest or with exertion. Tolerating PO without issue. Pt denies fever, chest pain, abd pain, n/v/c/d, LE pain or swelling. He has been off O2 since last night. Discharge Exam Constitutional WD/WN, vitals as above Eyes normal visual rivera by confrontation and + anicteric sclerae Neck normal visual inspection and trachea midline Respiratory normal respiratory effort; no respiratory distress Auscultation: no crackles and no wheezes Cardiovascular Rate/Rhythm: regular rate and regular rhythm Gastrointestinal (Abdomen) Inspection/Auscultation: abdomen not distended Percussion/Palpation: abdomen soft; abdomen nontender Musculoskeletal Head/Neck/Chest: normocephalic and head atraumatic Skin no rashes, warm and dry Neurologic awake; not confused Speech / Cognition: normal speech Psychiatric A+Ox3, euthymic affect Discharge Data Allergies Allergy/AdvReac Type Severity Reaction Status Date / Time No Known Drug Allergies Allergy Unknown Verified 01/18/20 06:55 Consultations 01/18/20 07:20 ED Decision to Admit Stat Hospital Course (1) COPD exacerbation: Acute hypoxic respiratory failure with COPD exacerbation Improving s/p O2, nebs, steroids c/w prior episodes per pt CXR: neg for acute CBC, PRP, trop, BNP neg Nebs scheduled, solumed 40mg BID Wean O2, does not use at home and stable on RA 2 step WNL prior to d/c Pt 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 and can use this on d/c Also advised to use ventolin scheduled x1 week (2) 1st degree AV block: Not seen on prior EKG in M[facility] Tele monitor overnight Repeat EKG is NSR No sx c/w symptomatic 1st degree AVB that would require intervention (3) Pulmonary nodule: Seen on prior imaging, not well visualized on CXR in ED If ongoing issues, t/c CT chest as this could be part of COPD exacerbation Quit smoking in 1999 (4) HTN (hypertension): continue home meds (5) Hyperlipidemia: continue home meds (6) BPH w urinary obs/LUTS: continue home meds (7) AAA (abdominal aortic aneurysm): s/p repair in 1999 Pt states he was told this was stable and no further f/u needed (8) Horseshoe kidney: noted (9) DVT prophylaxis: Lovenox for DVT proph Total Time Total Time Spent Total Time Spent (In Minutes): >30 Total Time Includes: Examination of the Patient, Discharge Planning, Medication Reconciliation and Other Discharge Plan Discharge Items Patient Disposition: Home - Self-Care Reason For Visit: COPD EXACERBATION Discharge Diagnosis: COPD exacerbation Activity: Resume your previous activity Non-emergency contact: Director Of Strategic Sourcing Call non-emergency contact if: you have any medication questions and your symptoms worsen Follow-up/Referrals: Ignacio Alonzo MD [Primary Care Provider] - Jovany Borja PA-C [Physician Spa Consultant] - (Tomorrow as scheduled prior) Diet: Regular Addtl Attending Provider Instructions: You should use the prednisone prescription that you filled prior to coming to the hospital. Follow the instructions as on the bottle and as we have discussed. You should use the ventolin inhaler regularly, even if you feel that your breathing is not an issue. You should use it right when you wake up and then every 4-6 hours during the day. You should use it again prior to going to bed. You should do this for the next week, or as otherwise directed by Vinnie Borja when you see him at your appt tomorrow. Pending Studies at Discharge: No Stand-Alone Forms: My [facility], Smoking Cessation Medications and DC Order Prescriptions: New albuterol sulfate [Ventolin HFA] 90 mcg/actuation Hfa Aerosol Inhaler 2 puff inhalation Q4H PRN (Reason: shortness of breath or wheezing) Qty: 18 RF: 1 Continued amlodipine 5 mg tablet 5 mg PO DAILY Qty: 90 RF: 3 hydrochlorothiazide 12.5 mg tablet 12.5 mg PO DAILY Qty: 90 RF: 3 guaifenesin [Mucinex] 600 mg tablet extended release 12hr 600 mg PO BID Qty: 180 RF: 1 metoprolol succinate 100 mg tablet extended release 24 hr 100 mg PO DAILY Qty: 90 RF: 3 albuterol sulfate [Ventolin HFA] 90 mcg/actuation HFA aerosol inhaler 2 puffs INH Q4H PRN (Reason: Shortness Of Breath) Qty: 3 RF: 1 prednisone 10 mg tablet See Rx Instructions PO DAILY Qty: 36 RF: 0 finasteride 5 mg tablet 5 mg PO DAILY Qty: 90 RF: 3 diclofenac sodium 1 % gel 4 gm TOP QID PRN (Reason: pain) RF: 0 Bevespi Aerosphere 9-4.8 mcg HFA aerosol inhaler 2 puffs INH BID Qty: 3 RF: 1 omega-3 acid ethyl esters 1 gram capsule 1 cap PO QAM RF: 0 glucosamine-chondroitin 250-200 mg tablet 1 tab PO BID RF: 0 multivitamin [Daily Multi-Vitamin] tablet 1 tab PO QAM RF: 0 Saw [place] Extract (w-zinc) 160-15 mg Capsule 3 cap PO DAILY RF: 0 green tea leaf extract [Green Tea] 250 mg Capsule 500 mg PO DAILY RF: 0 Centrum Silver Ultra Men's 300-600-300 mcg Tablet 1 tab PO DAILY RF: 0 aspirin [Aspirin Low Dose] 81 mg Tablet,Delayed Release (Dr/Ec) 81 mg PO QAM RF: 0 Discharge Orders: Discharge Order (Routine); Ordered 01/20/20 Ordered By: Ivet Hu Admission Data Admit Date/Time: 01/18/20 08:15 Attending Provider: Ivet Hu Admit Provider: Ivet Hu Primary Care Provider: Ignacio Alonzo Other Providers: Ivet Hu Other Interventions: Discharge Summary Assessment (RN) Last Done: 01/20/20 12:04 DC Date/Time DO NOT enter until pt leaves facility: 01/20/20 13:27 Coding Level of Care Code D/C Day Management >30 mins Diagnoses COPD exacerbation J44.1 1st degree AV block I44.0 Pulmonary nodule R91.1 HTN (hypertension) I10 Hypertension type: essential hypertension Hyperlipidemia E78.00; E78.0 Hyperlipidemia type: pure hypercholesterolemia BPH w urinary obs/LUTS N40.1; N13.8 AAA (abdominal aortic aneurysm) I71.4 Horseshoe kidney Q63.1 DVT prophylaxis Z29.9
--- NOTE | 2020-01-20 16:57 | Electrocardiogram Report ---
Test Reason : Blood Pressure : / mmHG Vent. Rate : 082 BPM Atrial Rate : 082 BPM P-R Int : 172 ms QRS Dur : 076 ms QT Int : 366 ms P-R-T Axes : 077 062 053 degrees QTc Int : 427 ms Normal sinus rhythm Nonspecific ST abnormality When compared with ECG of 19-JAN-2020 06:39, Nonspecific T wave abnormality, improved in Inferior leads Confirmed by Roni Samaniego ([id number]) on 01/20/2020 4:56:53 PM Referred By: REFERRED SELF Confirmed By:Angus Samaniego
--- NOTE | 2020-01-23 12:52 | Coding Query ---
PRESENT ON ADMISSION QUERY To promote full compliance with coding requirements relating to pateint care, physician participation is requested in all cases of pinion sorter uncertainty. Please assist us with the question(s) below: Please place an X within the parenthesis (x). The following diagnosis(es) listed in this patient's medical record require physician assistance to determine if they were present on admission (POA) or not. Please advise for each diagnosis whether it was present on admission, not present on admission, or if it was clinically undetermined. 1. ACUTE HYPOXIC RESPIRATORY FAILURE (hypoxia is documented on ER but Acute Hypoxic Respiratory Failure is documented only on Discharge Summary) (x ) Present On Admission ( ) Not Present On Admission ( ) Clinically Undetermined Thank you Leslie Kelley *Definition of the present on admission (POA)-Present on admission is defined as present at the time the order for inpatient admission occurs. Conditions that develop during an outpatient encounter prior to a written order for inpatient admission (including emergency department, observation, or outpatient surgery) are considered present on admission. GABBY
== END 2020-01-20 13:27 | disposition hospice, home (50) | DRG 189 ==
LOC: ED 05:47 → 2S 08:15 → 3E 01-19 13:55

== ENCOUNTER 2020-03-11 07:02 | Inpatient (IN) ==
--- NOTE | 2020-03-11 07:47 | History & Physical Bridge Note ---
Date of Service March 11, 2020 History & Physical Bridge Note I have examined the patient, reviewed the History & Physical and in the interval since the performance of the History & Physical I have noted the following changes of clinical significance: no changes noted
--- NOTE | 2020-03-11 07:49 | Pre Anesthesia Assessment ---
Date of Service March 11, 2020 Pre Sedation Assessment Vital Signs Temp Pulse Resp BP Pulse Ox 03/11/20 07:25 36.7 C 78 24 193/87 H 92 Cardiovascular RRR, no murmur, no edema + peripheral pulses normal Respiratory normal respiratory effort, lungs clear to auscultation Pre-Sedation Airway Assessment Smoking Status: Former smoker Hx Sleep Apnea: No Hx Difficult Intubation: No Short, Thick Neck: No Thyromental Distance: > or= 3.5 Finger Breadths Oral Cavity: + Dentures Mallampati Class: II ASA: ASA3 Procedure Planning Contraindications for Sedation: none Current Medications Reviewed: Yes Notes The planned sedation has been discussed with the patient. Informed Consent was obtained. I have identified the patient, determined the appropriateness of sedation and have assessed the patient immediately prior to the procedure. All medicine(s) and interventions are by my order.
[2020-03-11] MEDS ORDERED: SODIUM CHLORIDE 0.9% 500 ML IV SCH (08:00)
[2020-03-11] MEDS ORDERED: fentaNYL citrate 100 MCG/2 ML VIAL ONE (09:22)
[2020-03-11] MEDS ORDERED: MIDAZOLAM HCL 5 MG/ML 1 ML VIAL ONE (09:24)
[2020-03-11] MEDS ORDERED: methylPREDNISolone 125 MG/2 ML VIAL ONE (09:54)
--- NOTE | 2020-03-11 10:14 | Post Anesthesia Assessment ---
Date of Service March 11, 2020 Post Sedation Assessment Vital Signs Temp Pulse Pulse Resp BP BP Pulse Ox 03/11/20 10:05 64 21 125/80 93 03/11/20 10:00 67 21 125/80 96 03/11/20 09:55 64 21 127/74 97 03/11/20 09:50 68 28 H 153/85 H 97 03/11/20 09:48 74 28 H 167/95 H 95 03/11/20 09:45 83 24 223/132 H 91 03/11/20 07:25 36.7 C 78 24 193/87 H 92 Recovery Score Activity: Moves 4 extremities Respiration: Deep Breath/Cough Circulation: +/-20% PreAnes Value Consciousness: Fully Awake Oxygen Saturation: O2 needed for >90% Post Anesthesia Score: 9 Discharge Sedation Level of Care: Fast Track Phase II Post Sedation Plan On clinical assessment, the patient appears to have tolerated the sedation without complications. Patient is recovering as anticipated. Patient will continue to be monitored by nursing and may be discharged when sedation discharge criteria are met per below protocol. Upon Completions of procedure up to 15 minutes continue every 5 minute vital signs and the P.A.R. score; then discharge to a Phase I or Fast Track to Phase II per the following guidelines: * Discharge Patient to appropriate Phase II area if PAR is 8 or greater or return to pre- procedure baseline. The post - procedure orders will be as directed. * If PAR score is less than 8 or not return to pre-procedure baseline then patient will follow Phase I monitoring till PAR is reached for Phase II. The Phase I may be done in procedure room or may call to secure a Phase I area. * If naloxone or flumazenil are used for reversal, hold in Phase I for continued monitoring from when last reversal dose was given for a minimum of 60 minutes or longer pending the nurse and/or physician discretion of patient condition before discharge to Phase II. Please call the Sedation Physician to re-evaluate and complete post-note for discharge to Phase II area. Do NOT discharge from procedure sedation or Phase 1 until post- sedation evaluation note is complete by procedure /sedation MD Sedation Discharge Instructions to be given to the patient at discharge to home.
--- NOTE | 2020-03-11 10:21 | Post Operative Brief Note ---
PG Immediate Post Op with CF Date of Surgery March 11, 2020 Pre & Post Diagnosis Operation Date: 03/11/20 07:00 <No data on this case meets the specified criteria> I identified the patient and participated in the time-out.: Yes Procedure Operation Date: 03/11/20 07:00 Actual Procedures p Bronchoscopy Respiratory - Samm Ashraf MD Surgeon Samm Ashraf MD [place] Clerk none Estimated Blood Loss 0 Findings Consistent with Post-Op Diagnosis Complications none Procedure was cancelled.BP was recorded at 220/130.Pt was given 2 mg IV Versed and BP came down to 160/90 but pt appeared more dyspneic and tachypneic requiring 3L via nasal cannula to maintain sats at 92%.He was bronchospastic R>L and was given 40 mg IV Solumedrol and a neb Rx w 1.25 mg Xopenex soln.Procedure was cancelled and after being recovered as per protocol he was taken back to [facility] for possible admission. Disposition Disposition: PCU Overlapping Procedure I was immediately available: during the entire case.
[2020-03-11] MEDS ORDERED: POLYETHYLENE (MIRALAX) 17 GM PACK PO PRN (13:16)
[2020-03-11] MEDS ORDERED: ONDANSETRON INJ 2 MG/ML 2 ML VIAL IV PRN (13:16)
[2020-03-11] MEDS ORDERED: ACETAMINOPHEN 325 MG TAB PO PRN (13:16)
[2020-03-11] MEDS ORDERED: methylPREDNISolone 40 MG in SYRINGE 0 ML IV ONE (13:45)
[2020-03-11] MEDS ORDERED: AZITHROMYCIN 250 MG TAB PO SCH (14:00)
[2020-03-11] MEDS: cefTRIAXone SODIUM 1,000 MG in DEXTROSE 5% 50 ML IV SCH (14:26)
[2020-03-11] MEDS: HEPARIN SOD 5,000 UNIT/0.5 ML VIAL SQ SCH ×2 (14:26→20:14)
[2020-03-11] MEDS ORDERED: AMLODIPINE BESYLATE 5 MG TAB PO ONE (16:16)
[2020-03-11] MEDS: ALBUT/IPRATROP 3MG/0.5MG NEB 3 ML VIAL NEB SCH ×2 (17:41→19:35)
[2020-03-11] MEDS: methylPREDNISolone 40 MG in SYRINGE 0 ML IV SCH (20:13)
[2020-03-11] MEDS: guaiFENesin 600 MG TABCR PO SCH (20:13)
--- NOTE | 2020-03-11 21:31 | History & Physical Report ---
Date of Service March 11, 2020 Assessment & Plan (1) COPD exacerbation: ongoing issue, on and off for three months no distress at this time Duoneb QID scheduled Solu Medrol 40 q12 Rocephin 1gm IV q24 continue Zithromax MWF CXR PA/lateral in the morning no need for CT chest as he had one in January that was normal, just showed emphysema (2) OSORIO (dyspnea on exertion): most likely etiology is COPD/emphysema now on a little oxygen, 2L, no distress no h/o CHF, will check echo tomorrow to look for any dysfunction that could be contributing if still on oxygen will get 2 step, he could be desaturating with exertion and oxygen could help his symptoms (3) Hypertension: patient has only been taking Metoprolol he said he was told to stop taking Norvasc as of 03/05 will resume Norvasc today, HCTZ tomorrow, continue Metoprolol (4) Chronic cough: due to Emphysema no abnormalities seen on CT chest in January Guaifenisein 600mg BID consider adding PPI? (5) Emphysema of lung: (6) Pulmonary nodule: no significant changes on CT chest in January 2020 (7) Hyperlipidemia: Fish oil (8) BPH w urinary obs/LUTS: Finasteride Admission and Anticipated Discharge Date Admission Date: March 11, 2020 History of Present Illness Chief Complaint: I have been short of breath for three months Primary Care Provider: Ignacio Alonzo MD 84 yo male with history of COPD, says he has had worsening breathing for the past three months. He has been following with Vinnie TRINIDAD with pulmonology. He says he has been tried on antibiotics, now he takes Zithromax MWF. He has been tried on Prednisone. He has been given different inhaled therapies but his breathing is getting worse. He said that his cough is intermittently productive, he has never seen blood, sputum mostly clear, he said the amount of sputum decreased with Mucinex. He denies weight loss, night sweats. He says that the dyspnea is mostly on exertion but sometimes he gets short of breath at rest. He has not seen any edema and has no history of heart failure. He was here this morning for bronchoscopy with Dr. Ashraf, was really hypertensive with SBP > 230. BP improved with some Versed but his saturations dropped and was placed on 2L NC. Dr. Ashraf aborted the bronchoscopy and requested admission for COPD exacerbation. He was directly admitted from same day surgery unit. Reviewed outpatient imaging. CXR in January with emphysema, no pneumonia. CT chest on January 20 with some upper lobe scarring, emphysema, no lymphadenopathy, no lung mass. Cannot find echo report in chart. Allergies Allergy/AdvReac Type Severity Reaction Status Date / Time No Known Drug Allergies Allergy Unknown Verified 03/11/20 07:33 Home Medications Home Medications Medication Instructions Recorded Confirmed Type glucosamine-chondroitin 250 mg-200 1 tab PO BID tab 05/17/19 03/11/20 History mg tablet omega-3 acid ethyl esters 1 gram 1 cap PO QAM cap 05/17/19 03/11/20 History capsule aspirin [Aspirin Low Dose] 81 mg PO QAM 06/25/19 03/11/20 History amlodipine 5 mg tablet 5 mg PO DAILY #90 tab 11/01/19 03/11/20 Rx diclofenac sodium 1 % topical gel 4 gm TOP QID PRN gm 12/04/19 03/11/20 History glycopyrrolate 9 mcg-formoterol 2 puffs INH BID #3 inhaler 12/04/19 03/11/20 Rx 4.8 mcg HFA aerosol inhaler hydrochlorothiazide 12.5 mg tablet 12.5 mg PO DAILY #90 tab 12/05/19 03/11/20 Rx guaifenesin 600 mg tablet, 600 mg PO BID #180 tab 12/12/19 03/11/20 Rx extended release 12 hr finasteride 5 mg tablet 5 mg PO DAILY #90 tab 12/20/19 03/11/20 Rx metoprolol succinate 100 mg 100 mg PO DAILY #90 tab 01/07/20 03/11/20 Rx tablet,extended release 24 hr albuterol sulfate 90 mcg/actuation 2 puffs INH Q4H PRN #3 inhaler 01/13/20 03/11/20 Rx aerosol inhaler Centrum Silver Ultra Men's 1 tab PO DAILY 01/18/20 03/11/20 History Saw [place] Extract (w-zinc) 3 cap PO DAILY 01/18/20 03/11/20 History green tea leaf extract [Green Tea] 500 mg PO DAILY 01/18/20 03/11/20 History azithromycin 250 mg tablet 250 mg PO .QM,W,F #12 tab 02/27/20 03/11/20 Rx Past Med/Surg History Medical History AAA (abdominal aortic aneurysm) Aorto-iliac disease (Inactive) BPH (benign prostatic hyperplasia) Chronic obstructive pulmonary disease follows Jovany Borja. rarely uses rescue inh Glaucoma of both eyes Hyperlipidemia Hypertension (Chronic) NSVT (nonsustained ventricular tachycardia) (Chronic) pt unaware of this Osteoarthritis Solitary [place] [facility] [place] H[place]O aortic aneurysm repair Oct 1999- suzy romero / [place]. 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 Required: No Beliefs That Will Affect Care: None marital status: Current Living Situation: Spouse Other Information That Helps Us Care for You: No Feels Safe at Home: Yes Safety Concerns: Feels Safe At This Time Smoking Status: Former smoker Tobacco Type: cigarettes ; packs per day: 1 ; Cigarettes Per Day: 20 ; Second Hand Exposure: No ; Hx Alcohol Use: Yes Alcohol type: wine Alcohol Intake Frequency Comment: 2 vodka cranberry drinks maybe 3-4 days a week Hx Substance Use: No Seatbelt Use: always Review of Systems Review of Systems: All systems reviewed & are unremarkable except as noted in HPI & below Physical Exam Constitutional: well developed and well nourished; no acute distress Eyes: PERRL, conjunctivae normal, anicteric sclerae ENMT: external ear and nose normal, oropharynx normal Neck: trachea midline, no thyromegaly Respiratory: normal respiratory effort; no respiratory distress and no cough Auscultation: + diminished lung sounds and + wheezes (very faint, end exhalation); no crackles, no rales and no rhonchi Cardiovascular: RRR, no murmur, no edema Gastrointestinal (Abdomen): normal bowel sounds, soft, nontender, no hepatosplenomegaly Musculoskeletal: no cyanosis or clubbing, extremities motor strength 5/5 Skin: no rashes, warm and dry Neurologic: patellar DTR's 2+ bilat, sensation intact and PERRL, EOMI, accommodation nl, no face palsy, no dysarthria Psychiatric: A+Ox3, euthymic affect Lymphatic: no cervical or axillary lymphadenopathy Results & Data Results & Data ([facility]) Vital Signs (Past 12 Hours) Vital Signs Temp Pulse Pulse Resp BP BP Pulse Ox 03/11/20 20:11 79 178/86 H 03/11/20 19:36 74 18 96 03/11/20 17:30 76 18 95 03/11/20 16:15 180/78 H 03/11/20 14:58 36.9 C 65 18 170/85 H 183/87 H 93 03/11/20 13:07 36.8 C 64 16 156/88 H 92 03/11/20 12:41 36.6 C 60 24 157/84 H 94 03/11/20 12:12 63 18 134/85 93 03/11/20 11:41 58 L 18 138/73 95 03/11/20 11:10 57 L 18 141/86 H 96 03/11/20 10:36 60 18 127/74 95 03/11/20 10:10 36.6 C 62 18 192/87 H 94 03/11/20 10:05 64 21 125/80 93 03/11/20 10:00 67 21 125/80 96 03/11/20 09:55 64 21 127/74 97 03/11/20 09:50 68 28 H 153/85 H 97 03/11/20 09:48 74 28 H 167/95 H 95 03/11/20 09:45 83 24 223/132 H 91 Medications Administered Current Inpatient Medications Acetaminophen (Tylenol) 650 mg PO Q4H PRN PRN Reason: pain/fever Stop: 04/10/20 13:15 Albuterol (Duoneb) 3 ml NEB QIDR [facility] Stop: 04/10/20 14:59 Last Admin: 03/11/20 19:35 Dose: 3 ml Documented by: Amlodipine Besylate (Norvasc) 5 mg PO DAILY [facility] Stop: 04/11/20 08:59 Aspirin (Ecotrin Ectab) 81 mg PO QAM [facility] Stop: 04/11/20 08:59 Azithromycin (Zithromax) 250 mg PO MoWeFr@0900 [facility] Stop: 04/10/20 13:59 Last Admin: 03/11/20 14:26 Dose: 250 mg Documented by: Finasteride (Proscar) 5 mg PO DAILY [facility] Stop: 04/11/20 08:59 Guaifenesin (Mucinex) 600 mg PO BID [facility] Stop: 04/10/20 20:59 Last Admin: 03/11/20 20:13 Dose: 600 mg Documented by: Heparin Sodium (Porcine) (Heparin Sodium (Porcine)) 5,000 units SQ Q8 [facility] Stop: 04/10/20 13:59 Last Admin: 03/11/20 20:14 Dose: 5,000 units Documented by: Hydrochlorothiazide (Hctz) 12.5 mg PO DAILY [facility] Stop: 04/11/20 08:59 Methylprednisolone 40 mg/ (Syringe) 0.64 mls @ 1.5 mls/min IV Q12 [facility] Stop: 04/10/20 20:59 Last Admin: 03/11/20 20:13 Dose: 1.5 mls/min Documented by: Ceftriaxone Sodium 1,000 mg/ (Dextrose) 50 mls @ 100 mls/hr IV Q24H [facility]; Protocol Stop: 03/18/20 13:59 Last Infusion: 03/11/20 15:00 Dose: Infused Documented by: Metoprolol Succinate (Toprol Xl) 100 mg PO DAILY [facility] Stop: 04/11/20 08:59 Miscellaneous (Order Awaiting Action) 1 ea N/A QS [facility] Stop: 04/10/20 15:59 Last Admin: 03/11/20 17:04 Dose: Not Given Documented by: Ondansetron HCl (Zofran) 4 mg IV Q6H PRN PRN Reason: Nausea Stop: 04/10/20 13:15 Polyethylene Glycol (Miralax Powder Packet) 17 gm PO DAILY PRN PRN Reason: Constipation Stop: 04/10/20 13:15 Code Status & VTE Plan VTE Prophylaxis Plan VTE Prophylaxis will be ordered: Yes PG Care Time/CCT Total # of Minutes Spent Total Time Spent with Patient: Total time spent is greater than 50% in coordination of care (as documented) at patient's floor/unit and/or counseling patient: Coding Level of Care Code 53703 Initial Inpt Care Lvl 3 Diagnoses COPD exacerbation J44.1 OSORIO (dyspnea on exertion) R06.09 Hypertension I10 Chronic cough R05 Emphysema of lung J43.9 Pulmonary nodule R91.1 Hyperlipidemia E78.00; E78.0 Hyperlipidemia type: pure hypercholesterolemia BPH w urinary obs/LUTS N40.1; N13.8 (1) Hyperlipidemia Hyperlipidemia type: pure hypercholesterolemia Qualified Code(s): E78.00 - Pure hypercholesterolemia, unspecified; E78.0 - Pure hypercholesterolemia
[2020-03-12] MEDS: HEPARIN SOD 5,000 UNIT/0.5 ML VIAL SQ SCH ×2 (05:20→13:20)
[2020-03-12 05:46] LABS: Mean Corpuscular Hemoglobin 30.4 pg (25-34); Mean Corpuscular Hgb Conc 33.3 g/dL (32-36); Mean Corpuscular Volume 91.1 fL (80-100); Mean Platelet Volume 9.3 fL (7.4-10.4); Platelet Count 167 K/uL (130-400); RDW Coefficient of Variation 13.9 % (11.5-14.5); RDW Standard Deviation 45.9 fL (36.4-46.3); Red Blood Count 4.61 M/uL (4.7-6.1); White Blood Count 5.51 K/uL (4.8-10.8)
[2020-03-12 06:15] LABS: BUN Creatinine Ratio 17.4 (10-20); Calcium 9.1 mg/dl (8.5-10.1); Creatinine Clr Calc Pharmacy 39.9 ml/min; Est GFR (African American) 55.7; Est GFR (Non-African American) 48.1; Potassium 4.3 mmol/L (3.5-5.1)
[2020-03-12] MEDS: ALBUT/IPRATROP 3MG/0.5MG NEB 3 ML VIAL NEB SCH ×3 (07:02→15:36)
[2020-03-12] MEDS: methylPREDNISolone 40 MG in SYRINGE 0 ML IV SCH (08:35)
[2020-03-12] MEDS: guaiFENesin 600 MG TABCR PO SCH (08:37)
[2020-03-12] MEDS ORDERED: METOPROLOL SUCC 50MG EXT REL TAB PO SCH (09:00)
[2020-03-12] MEDS ORDERED: FINASTERIDE 5 MG TAB PO SCH (09:00)
[2020-03-12] MEDS ORDERED: AMLODIPINE BESYLATE 5 MG TAB PO SCH (09:00)
[2020-03-12] MEDS ORDERED: ASPIRIN 81 MG ECTAB PO SCH (09:00)
[2020-03-12] MEDS ORDERED: hydroCHLOROthiazide 25 MG TAB PO SCH (09:00)
--- NOTE | 2020-03-12 09:31 | XRay Report ---
XR chest 2V PA/lateral CLINICAL HISTORY: Dyspnea, COPD COMPARISON STUDY: 01/18/2020. FINDINGS: mild stable emphysematous change. Unchanged calcified granuloma left midlung. Unchanged pleural thickening lateral aspect right chest. This is unchanged from the prior study. There are no focal infiltrative changes. IMPRESSION: Mild emphysematous change. No acute process. ACT 112: Negative or not required by law. The above report was generated using voice recognition software. It may contain grammatical, syntax or spelling errors. Electronically signed by: Damian Long M.D. 03/12/2020 9:29 AM
[2020-03-12] MEDS: cefTRIAXone SODIUM 1,000 MG in DEXTROSE 5% 50 ML IV SCH (13:19)
--- NOTE | 2020-03-12 18:14 | XCELERA ---
[id number]
[2020-03-13] MEDS ORDERED: UMECLIDINIUM/VILANTEROL 62.5/25MCG 7 PUFFS/INHALER INH SCH (09:00)
--- NOTE | 2020-03-14 10:23 | Discharge Summary ---
Date of Service March 12, 2020 Admission HPI Per Admitting Provider 84 yo male with history of COPD, says he has had worsening breathing for the past three months. He has been following with Vinnie TRINIDAD with pulmonology. He says he has been tried on antibiotics, now he takes Zithromax MWF. He has been tried on Prednisone. He has been given different inhaled therapies but his breathing is getting worse. He said that his cough is intermittently productive, he has never seen blood, sputum mostly clear, he said the amount of sputum decreased with Mucinex. He denies weight loss, night sweats. He says that the dyspnea is mostly on exertion but sometimes he gets short of breath at rest. He has not seen any edema and has no history of heart failure. He was here this morning for bronchoscopy with Dr. Ashraf, was really hypertensive with SBP > 230. BP improved with some Versed but his saturations dropped and was placed on 2L NC. Dr. Ashraf aborted the bronchoscopy and requested admission for COPD exacerbation. He was directly admitted from same day surgery unit. Reviewed outpatient imaging. CXR in January with emphysema, no pneumonia. CT chest on January 20 with some upper lobe scarring, emphysema, no lymphadenopathy, no lung mass. Cannot find echo report in chart. Principal Diagnosis COPD exacerbation Discharge Exam Constitutional well developed and well nourished; no acute distress Eyes PERRL, conjunctivae normal, anicteric sclerae ENMT external ear and nose normal, oropharynx normal Neck trachea midline, no thyromegaly Respiratory normal respiratory effort; no respiratory distress and no cough Auscultation: + diminished lung sounds and + wheezes (very faint, end exhalation); no crackles, no rales and no rhonchi Cardiovascular RRR, no murmur, no edema Gastrointestinal (Abdomen) normal bowel sounds, soft, nontender, no hepatosplenomegaly Musculoskeletal no cyanosis or clubbing, extremities motor strength 5/5 Skin no rashes, warm and dry Neurologic patellar DTR's 2+ bilat, sensation intact and PERRL, EOMI, accommodation nl, no face palsy, no dysarthria Psychiatric A+Ox3, euthymic affect Lymphatic no cervical or axillary lymphadenopathy Discharge Data Allergies Allergy/AdvReac Type Severity Reaction Status Date / Time No Known Drug Allergies Allergy Unknown Verified 03/11/20 07:33 Consultations 03/11/20 10:34 Consult Hospitalist Routine 03/11/20 13:16 Consult Case Management - Discharge Planning Routine Procedures Performed Operation Date: 03/11/20 07:00 Actual Procedures p Bronchoscopy Respiratory - Samm Ashraf MD Hospital Course (1) COPD exacerbation: ongoing issue, on and off for three months no distress on admission or on discharge Duoneb QID scheduled Solu Medrol 40 q12 Rocephin 1gm IV q24 continue Zithromax MWF reviewed chart, had a CT chest in January 2020 that showed some right sided scar tissue, no other abnormalities CXR PA/lateral on 03/12 with no evidence of pneumonia, only change was emphysema changes echocardiogram on 03/12 with EF 65-70%, normal RV pressures, no valve disease 2 step ambulatory oxygen test showed that patient did NOT need oxygen, both at rest and exertion will d/c home on Prednisone x 5 more days, use inhaled treatment as prescribed follow up closely with Vinnie TRINIDAD, pulmonology (2) OSORIO (dyspnea on exertion): most likely etiology is COPD/emphysema titrated to room air, 2 step shows no need for oxygen echo with normal EF, no pulmonary hypertension most logical cause of his dyspnea is COPD (3) Hypertension: BP improved after we resumed Norvasc and HCTZ tomorrow, continue Metoprolol (4) Chronic cough: due to Emphysema no abnormalities seen on CT chest in January Guaifenisein 600mg BID consider adding PPI? (5) Emphysema of lung: (6) Pulmonary nodule: no significant changes on CT chest in January 2020 (7) Hyperlipidemia: Fish oil (8) BPH w urinary obs/LUTS: Finasteride Total Time Total Time Spent Total Time Spent (In Minutes): 32 minutes Total Time Includes: Examination of the Patient, Discharge Planning, Medication Reconciliation and Communication With Other Providers (Dr. Ashraf) Discharge Plan Discharge Items Patient Disposition: Home - Self-Care Reason For Visit: COPD exacerbation Discharge Diagnosis: COPD exacerbation Shortness of breath Condition on Discharge: Good Goals: follow up with Vinnie TRINIDAD complete course of Prednisone Activity: Resume your previous activity Non-emergency contact: Primary Care Provider Call non-emergency contact if: you have any medication questions and your symptoms worsen Follow-up/Referrals: Ignacio Alonzo MD [Primary Care Provider] - (two weeks) Jovany Borja PA-C [Physician Weigh And Charge Worker] - (one week) Diet: Heart Healthy Add Attending Provider Instructions: Medications: - PREDNISONE: take 20mg twice a day for 5 more days then stop, start taking this evening COPD/emphysema exacerbation lungs are diminished with very faint wheezing but overall improved recommend completing a short course of Prednisone continue your maintenance inhalers twice a day, take these scheduled every day no matter how you feel use your rescue inhaler as needed for increased shortness of breath, can use every 4 hours, if you need to repeat at two hours that is okay continue Mucinix and Azithromycin during your stay... chest x-ray shows emphysema but no pneumonia, no signs of heart failure echocardiogram showed preserved function, no valve disease -- no signs of heart failure walking oxygen test showed that you do NOT need oxygen, neither at rest or when walking please follow up with Vinnie Borja in one week Pending Studies at Discharge: No Stand-Alone Forms: My [facility] [employer] Smoking Cessation Medications and DC Order Prescriptions: New prednisone 20 mg tablet 20 mg PO BID 5 Days Qty: 11 RF: 0 Continued amlodipine 5 mg tablet 5 mg PO DAILY Qty: 90 RF: 3 hydrochlorothiazide 12.5 mg tablet 12.5 mg PO DAILY Qty: 90 RF: 3 guaifenesin [Mucinex] 600 mg tablet extended release 12hr 600 mg PO BID Qty: 180 RF: 1 metoprolol succinate 100 mg tablet extended release 24 hr 100 mg PO DAILY Qty: 90 RF: 3 albuterol sulfate [Ventolin HFA] 90 mcg/actuation HFA aerosol inhaler 2 puffs INH Q4H PRN (Reason: Shortness Of Breath) Qty: 3 RF: 1 finasteride 5 mg tablet 5 mg PO DAILY Qty: 90 RF: 3 azithromycin 250 mg tablet 250 mg PO .QM,W,F Qty: 12 RF: 2 diclofenac sodium 1 % gel 4 gm TOP QID PRN (Reason: pain) RF: 0 Bevespi Aerosphere 9-4.8 mcg HFA aerosol inhaler 2 puffs INH BID Qty: 3 RF: 1 omega-3 acid ethyl esters 1 gram capsule 1 cap PO QAM RF: 0 glucosamine-chondroitin 250-200 mg tablet 1 tab PO BID RF: 0 glycopyrrolate-formoterol [Bevespi Aerosphere] 9-4.8 mcg HFA aerosol inhaler 9 inh inhalation BID RF: 0 Saw [place] Extract (w-zinc) 160-15 mg Capsule 3 cap PO DAILY RF: 0 green tea leaf extract [Green Tea] 250 mg Capsule 500 mg PO DAILY RF: 0 Centrum Silver Ultra Men's 300-600-300 mcg Tablet 1 tab PO DAILY RF: 0 aspirin [Aspirin Low Dose] 81 mg Tablet,Delayed Release (Dr/Ec) 81 mg PO QAM RF: 0 Discharge Orders: Discharge Order (Routine); Ordered 03/12/20 Ordered By: Michi Mancini/Other Patient Handouts: Controlling High Blood Pressure, Discharge Instructions: COPD Admission Data Admit Date/Time: 03/11/20 10:55 Attending Provider: Michi Reaves Admit Provider: Michi Reaves Primary Care Provider: Ignacio Alonzo Other Providers: Samm Ashraf Other Interventions: Discharge Summary Assessment (RN) Last Done: 03/12/20 15:20 DC Date/Time DO NOT enter until pt leaves facility: 03/12/20 16:40 Coding Level of Care Code D/C Day Management >30 mins Diagnoses COPD exacerbation J44.1 OSORIO (dyspnea on exertion) R06.09 Hypertension I10 Chronic cough R05 Emphysema of lung J43.9 Pulmonary nodule R91.1 Hyperlipidemia E78.00; E78.0 Hyperlipidemia type: pure hypercholesterolemia BPH w urinary obs/LUTS N40.1; N13.8
== END 2020-03-12 16:40 | disposition home or self-care (01) | DRG 192 ==
LOC: ASU 07:02 → 3W 10:55

== ENCOUNTER 2020-12-29 13:42 | Observation (INO) ==
--- NOTE | 2020-12-29 14:36 | XRay Report ---
XR chest 1V portable CLINICAL HISTORY: Chest Pain COMPARISON STUDY: Chest CT December 02, 2020. FINDINGS: Severe emphysema is better depicted on prior chest CT. A calcified granuloma within the lef t upper lobe is noted. There is no consolidation to suggest pneumonia. Pulmonary vascularity is mario l. Nipple shadows project over the hemithoraces. Cardiomediastinal silhouette is stable. Minimal biba silar opacities favor atelectasis. A few old left rib fractures are incidentally noted. IMPRESSION: 1. No acute cardiopulmonary findings. No change in appearance of the chest. 2. Emphysema. ACT 112: Negative or not required by law. Electronically signed by: Moe Agustin M.D. 12/29/2020 2:35 PM
[2020-12-29 14:56] LABS: Basophils # (auto) 0.03 K/uL (0-0.2); Basophils % (auto) 0.3 %; Eosinophils # (auto) 0.07 K/uL (0-0.5); Eosinophils % (auto) 0.6 %; Hematocrit (blood only) 44.8 % (42-52); Immature Granulocytes # (auto) 0.09 K/uL (0.00-0.02); Immature Granulocytes % (auto) 0.8 %; Lymphocytes # (auto) 1.34 K/uL (1.2-3.4); Lymphocytes % (auto) 12.2 %; Mean Corpuscular Hemoglobin 30.4 pg (25-34); Mean Corpuscular Hgb Conc 33.5 g/dL (32-36); Mean Corpuscular Volume 90.9 fL (80-100); Mean Platelet Volume 9.5 fL (7.4-10.4); Monocytes # (auto) 0.48 K/uL (0.11-0.59); Monocytes % (auto) 4.4 %; Neutrophils # (auto) 8.94 K/uL (1.4-6.5); Neutrophils % (auto) 81.7 %; Platelet Count 236 K/uL (130-400); RDW Coefficient of Variation 15.5 % (11.5-14.5); RDW Standard Deviation 51.6 fL (36.4-46.3); Red Blood Count 4.93 M/uL (4.7-6.1); White Blood Count 10.95 K/uL (4.8-10.8)
[2020-12-29 15:12] LABS: Partial Thromboplastin Ratio 0.9; Partial Thromboplastin Time 23.6 Seconds (21.0-31.0); Prothrombin Time 10.2 Seconds (9.0-12.0)
[2020-12-29 15:14] LABS: Alanine Aminotransferase 25 U/L (12-78); Albumin Level 3.3 gm/dl (3.4-5.0); Aspartate Aminotransferase 19 U/L (15-37); BUN Creatinine Ratio 25.2 (10-20); Blood Urea Nitrogen 32 mg/dl (7-18); Calcium 10.6 mg/dl (8.5-10.1); Carbon Dioxide 31 mmol/L (21-32); Chloride 108 mmol/L (98-107); Creatinine Clr Calc Pharmacy 40.6 ml/min; Est GFR (African American) 58.5; Est GFR (Non-African American) 50.5; Glucose 95 mg/dl (70-99); Potassium 4.7 mmol/L (3.5-5.1); Sodium 141 mmol/L (136-145)
[2020-12-29 15:19] LABS: Alkaline Phosphatase 69 U/L (45-117); Bilirubin,Total 0.4 mg/dl (0.2-1); Globulin 3.3 gm/dl (2.5-4.0); Total Protein 6.6 gm/dl (6.4-8.2); Troponin I < 0.015 ng/ml (0-0.045)
--- NOTE | 2020-12-29 17:00 | History & Physical Report ---
Date of Service December 29, 2020 Assessment & Plan (1) Chest pain: r/o MS Serial troponins Rpt EKG if further chest pain overnight Consult cardiology in AM for possible need for stress testing. He is due a stress test in January for ongoing shortness of breath organized by his PCP therefore suspect this can be done as an inpatient. (2) Hypoxia: Aim O2 sats > 94% in setting of possible ACS. However likely the patient chronically runs in the low 90s (3) Chronic cough: Assess for chronic aspirations with SLT consult Otherwise continue his usual outpatient medication for COPD and mucus plugging Continue on current prednisone taper 10mg PO daily (4) COPD (chronic obstructive pulmonary disease): Continue on his usual home inhalers Improved since recent steroid and antibiotics prescribed by his chief petroleum engineer. (5) HTN (hypertension): Continue on his usual regimen on amlodipine, HCTZ, metoprolol (6) NSVT (nonsustained ventricular tachycardia): Patient usually unaware of these episodes therefore unlikely cause of his chest pain but will monitor on telemetry overnight for recurrence Continue on metoprolol succinate 100mg PO daily (7) CKD (chronic kidney disease), stage III: Cr at baseline (8) BPH (benign prostatic hyperplasia): Continue finasteride and saw howell Admission and Anticipated Discharge Date Admission Date: December 29, 2020 History of Present Illness Chief Complaint: Chest pain Primary Care Provider: Ignacio Alonzo MD Eliazar Chavez is an 85-year-old male who presents to the ER with chest pain. Chest pain occurred while walking. Severity 5/10. Lasted for 15-20 mins, occurred around noon. Substernal from breast to breast, no radiation. Took addition x3 aspirin and not returned since. Has not moved much since. No worse on limited exertion he has done. Never had similar pain in the past. Never had MS in the past. Former smoker - quit 1999, previously smoked 1-1.5pcks/day. 1-2 shots of vodka/day. No illicit substances. No syncope, presyncope, palpitations, claudications. He does note orthopnea but only uses one pillow to sleep. 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 Sporadic phlegm all year round, been about the same as usual. No fevers or chills. Never been evaluated by SLT for aspirations despite chronic cough although does not note significant worsening after eating. He was recently placed on prednisone and Augmentin by his chief petroleum engineer due to worsening shortness of breath and cough on 12/09 which the patient reports has been somewhat effective. He notes his PCP has arranged a stress echocardiogram that is arranged in In the ER his initial troponin is negative. However EKG with new TWI in lateral leads is concerning. He has been chest pain free since this episode. He was referred to medicine for admission and ongoing management for chest pain rule out ACS. Allergies Allergy/AdvReac Type Severity Reaction Status Date / Time roflumilast [From [facility]] Allergy Intermediate rash Verified 12/29/20 14:14 Home Medications Medication Instructions Recorded Confirmed Type omega-3 acid ethyl esters 1 gram 1 cap PO QAM cap 05/17/19 12/29/20 History capsule aspirin [Aspirin Low Dose] 81 mg PO QAM 06/25/19 12/29/20 History guaifenesin 600 mg tablet, 600 mg PO BID #180 tab 12/12/19 12/29/20 Rx extended release 12 hr Centrum Silver Ultra Men's 1 tab PO QAM 01/18/20 12/29/20 History Saw [place] Extract (w-zinc) 3 cap PO QAM 01/18/20 12/29/20 History green tea leaf extract [Green Tea] 500 mg PO QAM 01/18/20 12/29/20 History glycopyrrolate 9 mcg-formoterol 2 puff INH BID #3 inhaler 05/14/20 12/29/20 Rx 4.8 mcg HFA aerosol inhaler nebulizers #1 ea 07/08/20 12/23/20 Rx sodium chloride 7 % for 4 ml INHALATION BID #240 ml 07/08/20 12/29/20 Rx nebulization albuterol sulfate 90 mcg/actuation 2 puff INHALATION Q6H PRN 09/01/20 12/29/20 History aerosol inhaler glucosamine-chondroitin 250 mg-200 2 tab PO QAM tab 11/11/20 12/29/20 History mg tablet Oxygen Home #1 ea 11/12/20 12/23/20 Rx amlodipine 5 mg PO QAM 12/29/20 12/29/20 History finasteride 5 mg PO QAM 12/29/20 12/29/20 History hydrochlorothiazide 12.5 mg PO QAM 12/29/20 12/29/20 History metoprolol succinate 100 mg PO QAM 12/29/20 12/29/20 History prednisone 10 mg PO QAM 12/29/20 12/29/20 History Past Med/Surg History Medical History AAA (abdominal aortic aneurysm) Aorto-iliac disease BPH (benign prostatic hyperplasia) Chronic obstructive pulmonary disease follows [facility]. rarely uses rescue inh CKD (chronic kidney disease), stage III Glaucoma of both eyes Hyperlipidemia Hypertension NSVT (nonsustained ventricular tachycardia) pt unaware of this Osteoarthritis Solitary pulmonary nodule [place] [facility] [place] H/O aortic aneurysm repair Oct 1999- suzy romero / follows Dr. Olivares [facility] [place] History of AAA (abdominal aortic aneurysm) repair History of back surgery History of cataract surgery LEFT History of colonoscopy History of herniorrhaphy History of lumbar laminectomy Inguinal hernia Family History Brother Hypertension Osteoarthritis Unknown Cancer Other Emphysema of lung Denies family history of Myocardial infarction Stroke Social History Smoking Status: Former smoker (QUIT IN 2000, SMOKED FOR 50 YEARS) packs per day: 1; Cigarettes Per Day: 20; Second Hand Exposure: No; Hx Alcohol Use: Yes Alcohol type: hard liquor Alcohol Intake Frequency Comment: 2 vodka cranberry drinks maybe 3-4 days a week Hx Substance Use: No Preferred Language: Polish Communication Ability: Effective Visual Impairment: Limited Hearing Ability: Normal Senior Director Finance Required: Yes Beliefs That Will Affect Care: None marital status: Current Living Situation: Spouse Current Living Situation Comment: Lives independently at home with current occupational status: retired Other Information That Helps Us Care for You: No Feels Safe at Home: Yes Safety Concerns: Feels Safe At This Time caffeine: Yes Dental Care, Regularly: No Physical Activity Frequency: Does not Exercise Seatbelt Use: always Sunscreen Use: Yes Assistive Devices: Oxygen - Continuous Review of Systems Review of Systems: All systems reviewed & are unremarkable except as noted in HPI & below Physical Exam Constitutional: WD/WN, vitals as above Eyes: + anicteric sclerae; normal pupil size ENMT: external ear and nose normal, oropharynx normal Neck: trachea midline, no thyromegaly Respiratory: normal respiratory effort, able to speak in complete sentences and + prolonged expiratory phase; no respiratory distress, no labored breathing, does not use accessory muscles, no cough and not tachypneic Cardiovascular: RRR, no murmur, no edema Gastrointestinal (Abdomen): normal bowel sounds, soft, nontender, no hepatosplenomegaly Musculoskeletal: no cyanosis or clubbing, extremities motor strength 5/5 Skin: no rashes, warm and dry Neurologic: moves all extremities and awake; not confused Psychiatric: A+Ox3, euthymic affect Genitourinary: no CVA tenderness Results & Data Results & Data ([facility]) Vital Signs (Past 12 Hours) Vital Signs Temp Pulse Resp BP Pulse Ox 12/29/20 16:31 49 L 25 H 135/65 91 12/29/20 16:30 48 L 22 90 12/29/20 16:20 52 L 14 91 12/29/20 16:10 51 L 24 92 12/29/20 16:01 45 L 20 91 12/29/20 16:00 46 L 18 122/71 92 12/29/20 15:50 43 L 20 89 L 12/29/20 15:40 50 L 17 90 12/29/20 15:31 43 L 20 89 L 12/29/20 15:30 45 L 19 115/56 L 92 12/29/20 15:20 50 L 20 92 12/29/20 15:10 47 L 18 90 12/29/20 15:01 47 L 19 89 L 12/29/20 15:00 45 L 22 120/55 L 92 12/29/20 14:50 46 L 21 91 12/29/20 14:40 50 L 19 93 12/29/20 14:30 52 L 23 124/60 91 12/29/20 13:59 36.4 C L 84 16 156/94 H 92 Diagnostic Findings XR chest 1V portable IMPRESSION: 1. No acute cardiopulmonary findings. No change in appearance of the chest. 2. Emphysema. Medications Administered ER Medications Given: None ECG Indication: chest pain Rate (beats per minute): 53 Rhythm: normal sinus Findings: + T-wave inversion (Lateral) Comparison ECG Date: from (January 20, 2020) Change: the following changes noted (TWI are new) Code Status & VTE Plan Code Status Full VTE Prophylaxis Plan VTE Prophylaxis will be ordered: No Reason for no VTE drug order: Treatment not indicated Reason for no VTE mechanical prophylaxis: Treatment not indicated PG Care Time/CCT Total # of Minutes Spent Total Time Spent with Patient: Total time spent is greater than 50% in coordination of care (as documented) at patient's floor/unit and/or counseling patient: Coding Level of Care Code 78526 OBS Care - Level 3 Diagnoses Chest pain R07.89 Chest pain type: other chest pain Hypoxia R09.02 Chronic cough R05 COPD (chronic obstructive pulmonary disease) J43.9 COPD type: emphysema Emphysema type: unspecified HTN (hypertension) I10 Hypertension type: essential hypertension NSVT (nonsustained ventricular tachycardia) I47.2 CKD (chronic kidney disease), stage III N18.30 BPH (benign prostatic hyperplasia) N40.0 (1) COPD (chronic obstructive pulmonary disease) COPD type: emphysema Emphysema type: unspecified Qualified Code(s): J43.9 - Emphysema, unspecified (2) Chest pain Chest pain type: other chest pain Qualified Code(s): R07.89 - Other chest pain (3) HTN (hypertension) Hypertension type: essential hypertension Qualified Code(s): I10 - Essential (primary) hypertension
[2020-12-29 17:51] LABS: Influenza A virus by PCR Negative (Neg); Influenza B virus by PCR Negative (Neg); RSV by PCR Negative (Neg); SARS CoV2 RNA(COVID-19) InHosp NEGATIVE (Negative)
[2020-12-29] MEDS ORDERED: NITROGLYCERIN SL 0.4 MG/TAB TAB SL PRN (20:26)
[2020-12-29] MEDS ORDERED: ACETAMINOPHEN 325 MG TAB PO PRN (20:26)
[2020-12-29] MEDS ORDERED: ALBUTEROL HFA 8 GM INHALER INH PRN (21:08)
[2020-12-29] MEDS: guaiFENesin 600 MG TABCR PO SCH (21:36)
--- NOTE | 2020-12-29 21:38 | Emergency Department Note ---
History of Present Illness General Chief Complaint: Chest Pain Time Seen by Provider: 12/29/20 14:06 History of Present Illness Provider Complaint: chest pain Onset (ago): hour(s) 2 Time: 12:00 Duration: now resolved Onset: during exertion (wheeling a wheelbarrow) Pain Location: left chest Pain Radiation: none Severity: mild Maximum Pain Intensity: 5 Current Pain Intensity: 0 Quality: + aching Relieved By: + rest Exacerbated By: + exertion Context: no recent illness, no recent surgery, no recent immobilization, no r ecent travel, no trauma/injury, no new medications and no history of DVT/PE Associated symptoms: no nausea, no vomiting, no diaphoresis, no dyspnea, no sense of impending doom, no syncope, no palpitations, no fever, no cough and no leg swelling Home Medications Medication Instructions Recorded Confirmed Type omega-3 acid ethyl esters 1 gram 1 cap PO QAM cap 05/17/19 12/29/20 History capsule aspirin [Aspirin Low Dose] 81 mg PO QAM 06/25/19 12/29/20 History guaifenesin 600 mg tablet, 600 mg PO BID #180 tab 12/12/19 12/29/20 Rx extended release 12 hr Centrum Silver Ultra Men's 1 tab PO QAM 01/18/20 12/29/20 History Saw [place] Extract (w-zinc) 3 cap PO QAM 01/18/20 12/29/20 History green tea leaf extract [Green Tea] 500 mg PO QAM 01/18/20 12/29/20 History glycopyrrolate 9 mcg-formoterol 2 puff INH BID #3 inhaler 05/14/20 12/29/20 Rx 4.8 mcg HFA aerosol inhaler nebulizers #1 ea 07/08/20 12/23/20 Rx sodium chloride 7 % for 4 ml INHALATION BID #240 ml 07/08/20 12/29/20 Rx nebulization albuterol sulfate 90 mcg/actuation 2 puff INHALATION Q6H PRN 09/01/20 12/29/20 History aerosol inhaler glucosamine-chondroitin 250 mg-200 2 tab PO QAM tab 11/11/20 12/29/20 History mg tablet Oxygen Home #1 ea 11/12/20 12/23/20 Rx amlodipine 5 mg PO QAM 12/29/20 12/29/20 History finasteride 5 mg PO QAM 12/29/20 12/29/20 History hydrochlorothiazide 12.5 mg PO QAM 12/29/20 12/29/20 History metoprolol succinate 100 mg PO QAM 12/29/20 12/29/20 History prednisone 10 mg PO QAM 12/29/20 12/29/20 History Allergies Allergy/AdvReac Type Severity Reaction Status Date / Time roflumilast [From [facility]] Allergy Intermediate rash Verified 12/29/20 14:14 Past Med/Surg History Medical History AAA (abdominal aortic aneurysm) Aorto-iliac disease BPH (benign prostatic hyperplasia) Chronic obstructive pulmonary disease follows [facility]. rarely uses rescue inh CKD (chronic kidney disease), stage III Glaucoma of both eyes Hyperlipidemia Hypertension NSVT (nonsustained ventricular tachycardia) pt unaware of this Osteoarthritis Solitary pulmonary nodule follows [facility] [place] Surgical History H/O aortic aneurysm repair Oct 1999- suzy romero / follows Dr. Olivares [facility] [place] History of AAA (abdominal aortic aneurysm) repair History of back surgery History of cataract surgery LEFT History of colonoscopy History of herniorrhaphy History of lumbar laminectomy Inguinal hernia Family History Brother Hypertension Osteoarthritis Unknown Cancer Other Emphysema of lung Denies family history of Myocardial infarction Stroke Social History Smoking Status: Former smoker packs per day: 1; Cigarettes Per Day: 20; Second Hand Exposure: No; Hx Alcohol Use: Yes Alcohol type: hard liquor Alcohol Intake Frequency Comment: 2 vodka cranberry drinks maybe 3-4 days a week Hx Substance Use: No Preferred Language: Kyrgyz Communication Ability: Effective Visual Impairment: Limited Hearing Ability: Normal Early Breastfeeding Care Specialist Required: Yes Beliefs That Will Affect Care: None marital status: Current Living Situation: Spouse Current Living Situation Comment: Lives independently at home with current occupational status: retired Other Information That Helps Us Care for You: No Feels Safe at Home: Yes Safety Concerns: Feels Safe At This Time caffeine: Yes Dental Care, Regularly: No Physical Activity Frequency: Does not Exercise Seatbelt Use: always Sunscreen Use: Yes Assistive Devices: Denture - Upper, Denture - Lower, Glasses and Oxygen - at Night Review of Systems A total of 10 systems reviewed and were otherwise negative Physical Exam Vital Signs Vital Signs - 24 hr 12/29/20 13:59 12/29/20 14:29 12/29/20 14:30 Temperature 36.4 C L Temperature Source Oral Pulse Rate 84 52 L Pulse Rate from SpO2 Sensor Pulse Rhythm Regular Pulse Strength Normal Respiratory Rate 16 23 Respiratory Effort / Characteristics Non-Labored Spontaneous Respiratory Depth Normal Respiratory Pattern Regular Blood Pressure 156/94 H 124/60 Blood Pressure Mean 114 81 Blood Pressure Position Sitting Pulse Oximetry 92 91 Oxygen Delivery Method Room Air Room Air Room Air Sepsis Recent Fever Within 48 Hours No Sepsis New/Unexplained Change in Mental Status N/A Sepsis Action Taken by Nursing No Action Required 12/29/20 14:40 12/29/20 14:50 12/29/20 15:00 Temperature Temperature Source Pulse Rate 50 L 46 L 45 L Pulse Rate from SpO2 Sensor 51 L 48 L 45 L Pulse Rhythm Pulse Strength Respiratory Rate 19 21 22 Respiratory Effort / Characteristics Respiratory Depth Respiratory Pattern Blood Pressure 120/55 L Blood Pressure Mean 76 Blood Pressure Position Pulse Oximetry 93 91 92 Oxygen Delivery Method Sepsis Recent Fever Within 48 Hours Sepsis New/Unexplained Change in Mental Status Sepsis Action Taken by Nursing 12/29/20 15:01 12/29/20 15:10 12/29/20 15:20 Temperature Temperature Source Pulse Rate 47 L 47 L 50 L Pulse Rate from SpO2 Sensor 48 L 50 L 49 L Pulse Rhythm Pulse Strength Respiratory Rate 19 18 20 Respiratory Effort / Characteristics Respiratory Depth Respiratory Pattern Blood Pressure Blood Pressure Mean Blood Pressure Position Pulse Oximetry 89 L 90 92 Oxygen Delivery Method Sepsis Recent Fever Within 48 Hours Sepsis New/Unexplained Change in Mental Status Sepsis Action Taken by Nursing 12/29/20 15:30 12/29/20 15:31 12/29/20 15:40 Temperature Temperature Source Pulse Rate 45 L 43 L 50 L Pulse Rate from SpO2 Sensor 45 L 44 L 49 L Pulse Rhythm Pulse Strength Respiratory Rate 19 20 17 Respiratory Effort / Characteristics Respiratory Depth Respiratory Pattern Blood Pressure 115/56 L Blood Pressure Mean 75 Blood Pressure Position Pulse Oximetry 92 89 L 90 Oxygen Delivery Method Sepsis Recent Fever Within 48 Hours Sepsis New/Unexplained Change in Mental Status Sepsis Action Taken by Nursing 12/29/20 15:50 12/29/20 16:00 12/29/20 16:01 Temperature Temperature Source Pulse Rate 43 L 46 L 45 L Pulse Rate from SpO2 Sensor 45 L 46 L 49 L Pulse Rhythm Pulse Strength Respiratory Rate 20 18 20 Respiratory Effort / Characteristics Respiratory Depth Respiratory Pattern Blood Pressure 122/71 Blood Pressure Mean 88 Blood Pressure Position Pulse Oximetry 89 L 92 91 Oxygen Delivery Method Sepsis Recent Fever Within 48 Hours Sepsis New/Unexplained Change in Mental Status Sepsis Action Taken by Nursing 12/29/20 16:10 12/29/20 16:20 12/29/20 16:30 Temperature Temperature Source Pulse Rate 51 L 52 L 48 L Pulse Rate from SpO2 Sensor 50 L 52 L 48 L Pulse Rhythm Pulse Strength Respiratory Rate 24 14 22 Respiratory Effort / Characteristics Respiratory Depth Respiratory Pattern Blood Pressure Blood Pressure Mean Blood Pressure Position Pulse Oximetry 92 91 90 Oxygen Delivery Method Sepsis Recent Fever Within 48 Hours Sepsis New/Unexplained Change in Mental Status Sepsis Action Taken by Nursing 12/29/20 16:31 Temperature Temperature Source Pulse Rate 49 L Pulse Rate from SpO2 Sensor 49 L Pulse Rhythm Pulse Strength Respiratory Rate 25 H Respiratory Effort / Characteristics Respiratory Depth Respiratory Pattern Blood Pressure 135/65 Blood Pressure Mean 88 Blood Pressure Position Pulse Oximetry 91 Oxygen Delivery Method Sepsis Recent Fever Within 48 Hours Sepsis New/Unexplained Change in Mental Status Sepsis Action Taken by Nursing Physical Exam GENERAL: He is oriented to person, place, and time. He appears well-developed and well-nourished. He does not appear distressed. HENT: Exam performed. - Head: Normocephalic and atraumatic. - Right Ear: External ear normal. No mastoid tenderness. - Left Ear: External ear normal. No mastoid tenderness. - Mouth/Throat: The oropharynx is clear and moist. No trismus in the jaw. No dental abscesses or uvula swelling. No oropharyngeal exudate or tonsillar abscesses. EYES: Conjunctivae and EOM are normal. Pupils are equal, round, and reactive to light. Right eye exhibits no discharge. Left eye exhibits no discharge. No scleral icterus. NECK: Normal range of motion. Neck supple. No JVD present. No spinous process tenderness present. No carotid bruit present. No rigidity. No tracheal deviation and normal range of motion present. No Brudzinski's sign and no Kernig's sign noted. CV: Normal rate, regular rhythm, normal heart sounds and intact distal pulses. There is no peripheral edema. Palpable radial pulses bue. PULM/CHEST: Effort normal and breath sounds normal. No respiratory distress. No stridor. He has no wheezes. He has no rales. - Chest Wall: He exhibits no tenderness. ABD: The abdomen is soft. Bowel sounds are normal. He has no distension. No mass is present. There is no tenderness. There is no rebound, no guarding, no Franco's sign and no tenderness at McBurney's point. Rovsig negative. MUSC/SKEL: Normal range of motion. There is no peripheral edema, tenderness or deformity. LYMPH: No cervical adenopathy. NEURO: He is alert and oriented to person, place, and time. He has normal strength. No cranial nerve deficit or sensory deficit. Coordination and gait normal. GCS eye subscore is 4. GCS verbal subscore is 5. GCS motor subscore is 6. Cerebellar tests wnl. SKIN: Skin is warm and dry. He is not diaphoretic. PSYCH: He has a normal mood and affect. Behavior is normal. Judgment and thought content normal. Course Course 1406: The patient was evaluated in room C9. A complete history and physical exam was performed Cardiac monitoring: An order was placed for continuous cardiac monitoring. The monitor shows a rate of 50 with junctional rhythm 1610: Vital signs stable. Labs and imaging within normal limits. Given the patient's age and risk factors, the patient will be admitted to the hospitalist service for rule out ACS. Dr. Marquez [facility] hospitalist has been notified. Administered Medications Guaifenesin (Guaifenesin 600 Mg Tabcr) 600 mg PO BID LUCI Stop: 01/28/21 20:59 Last Admin: 12/29/20 21:36 Dose: 600 mg Documented by: Medical Decision Making Laboratory Data Result diagrams: 12/29/20 13:49 12/29/20 13:49 Labs: Lab Results 12/29/20 12/29/20 12/29/20 Range/Units 13:49 13:49 13:49 WBC 10.95 H (4.8-10.8) K/uL RBC 4.93 (4.7-6.1) M/uL Hgb 15.0 (14.0-18.0) g/dL Hct 44.8 (42-52) % MCV 90.9 (80-100) fL MCH 30.4 (25-34) pg MCHC 33.5 (32-36) g/dL RDW Std Deviation 51.6 H (36.4-46.3) fL RDW Coeff of Conchis 15.5 H (11.5-14.5) % Plt Count 236 (130-400) K/uL MPV 9.5 (7.4-10.4) fL Immature Gran % (Auto) 0.8 % Neut % (Auto) 81.7 % Lymph % (Auto) 12.2 % Liberty % (Auto) 4.4 % Eos % (Auto) 0.6 % Baso % (Auto) 0.3 % Neut # (Auto) 8.94 H (1.4-6.5) K/uL Lymph # (Auto) 1.34 (1.2-3.4) K/uL Liberty # (Auto) 0.48 (0.11-0.59) K/uL Eos # (Auto) 0.07 (0-0.5) K/uL Baso # (Auto) 0.03 (0-0.2) K/uL Immature Gran # (Auto) 0.09 H (0.00-0.02) K/uL PT 10.2 (9.0-12.0) Seconds INR 1.0 (0.9-1.1) APTT 23.6 (21.0-31.0) Seconds PTT Ratio 0.9 Sodium 141 (136-145) mmol/L Potassium 4.7 (3.5-5.1) mmol/L Chloride 108 H (98-107) mmol/L Carbon Dioxide 31 (21-32) mmol/L Anion Gap 2.0 L (3-11) BUN 32 H (7-18) mg/dl Creatinine 1.27 (0.6-1.4) mg/dl Est Cr Clr Drug Dosing 40.6 ml/min Est GFR ( Amer) 58.5 Est GFR (Non-Af Amer) 50.5 BUN/Creatinine Ratio 25.2 H (10-20) Glucose 95 (70-99) mg/dl Calcium 10.6 H (8.5-10.1) mg/dl Total Bilirubin 0.4 (0.2-1) mg/dl AST 19 (15-37) U/L ALT 25 (12-78) U/L Alkaline Phosphatase 69 (45-117) U/L Troponin I < 0.015 (0-0.045) ng/ml Total Protein 6.6 (6.4-8.2) gm/dl Albumin 3.3 L (3.4-5.0) gm/dl Globulin 3.3 (2.5-4.0) gm/dl Albumin/Globulin Ratio 1.0 (0.9-2) COVID-19 Eval Order SARS-CoV-2 (PCR) (Negative) Influenza Type A (PCR) (Neg) Influenza Type B (PCR) (Neg) RSV (RT-PCR) (Neg) 12/29/20 12/29/20 Range/Units 16:45 16:45 WBC (4.8-10.8) K/uL RBC (4.7-6.1) M/uL Hgb (14.0-18.0) g/dL Hct (42-52) % MCV (80-100) fL MCH (25-34) pg MCHC (32-36) g/dL RDW Std Deviation (36.4-46.3) fL RDW Coeff of Conchis (11.5-14.5) % Plt Count (130-400) K/uL MPV (7.4-10.4) fL Immature Gran % (Auto) % Neut % (Auto) % Lymph % (Auto) % Liberty % (Auto) % Eos % (Auto) % Baso % (Auto) % Neut # (Auto) (1.4-6.5) K/uL Lymph # (Auto) (1.2-3.4) K/uL [place] # (Auto) (0.11-0.59) K/uL Eos # (Auto) (0-0.5) K/uL Baso # (Auto) (0-0.2) K/uL Immature Gran # (Auto) (0.00-0.02) K/uL PT (9.0-12.0) Seconds INR (0.9-1.1) APTT (21.0-31.0) Seconds PTT Ratio Sodium (136-145) mmol/L Potassium (3.5-5.1) mmol/L Chloride (98-107) mmol/L Carbon Dioxide (21-32) mmol/L Anion Gap (3-11) BUN (7-18) mg/dl Creatinine (0.6-1.4) mg/dl Est Cr Clr Drug Dosing ml/min Est GFR ( Amer) Est GFR (Non-Af Amer) BUN/Creatinine Ratio (10-20) Glucose (70-99) mg/dl Calcium (8.5-10.1) mg/dl Total Bilirubin (0.2-1) mg/dl AST (15-37) U/L ALT (12-78) U/L Alkaline Phosphatase (45-117) U/L Troponin I (0-0.045) ng/ml Total Protein (6.4-8.2) gm/dl Albumin (3.4-5.0) gm/dl Globulin (2.5-4.0) gm/dl Albumin/Globulin Ratio (0.9-2) COVID-19 Eval Order CovFluRsv at [facility] SARS-CoV-2 (PCR) NEGATIVE (Negative) Influenza Type A (PCR) Negative (Neg) Influenza Type B (PCR) Negative (Neg) RSV (RT-PCR) Negative (Neg) Imaging Data Chest x-ray: Radiologist's impression: Chest X-Ray 12/29/20 14:25 XR chest 1V portable CLINICAL HISTORY: Chest Pain COMPARISON STUDY: Chest CT December 02, 2020. FINDINGS: Severe emphysema is better depicted on prior chest CT. A calcified granuloma within the left upper lobe is noted. There is no consolidation to suggest pneumonia. Pulmonary vascularity is normal. Nipple shadows project over the hemithoraces. Cardiomediastinal silhouette is stable. Minimal bibasilar opacities favor atelectasis. A few old left rib fractures are incidentally noted . IMPRESSION: 1. No acute cardiopulmonary findings. No change in appearance of the chest. 2. Emphysema. ACT 112: Negative or not required by law. Electronically signed by: Moe Agustin M.D. 12/29/2020 2:35 PM ECG Data Additional Comments: Junctional rhythm with a rate of 53. QRS 7 0 QTc [address] elevation or ST depression. T wave inversion in leads V5 and V6. MDM Narrative Vital signs stable. Labs and imaging within normal limits. Given the patient's age and risk factors, the patient will be admitted to the hospitalist service for rule out ACS. Dr. Marquez [facility] hospitalist has been notified. Impression & Plan Chest pain Discharge Plan Visit Data Chief Complaint: Chest Pain ED Provider: Tobias Earl Discharge Problem: Chest pain Patient Disposition: Admitted As Inpatient Discharge Instructions Interventions: ED Discharge Assessment Last Done: 12/29/20 19:35 Discharge Problem: Chest pain Qualifiers: Chest pain type: unspecified Qualified Code(s): R07.9 - Chest pain, unspecified
[2020-12-30] MEDS: SODIUM CHLOR 7% 4 ML NEB INH SCH ×2 (07:23→19:37)
[2020-12-30] MEDS: amLODIPine BESYLATE 5 MG TAB PO SCH (08:14)
[2020-12-30] MEDS: guaiFENesin 600 MG TABCR PO SCH ×2 (08:14→20:27)
[2020-12-30] MEDS: predniSONE 10 MG TABLET PO SCH (08:14)
[2020-12-30] MEDS: CEROVITE ADV FORMULA TAB PO SCH (08:14)
[2020-12-30] MEDS: UMECLIDINIUM/VILANTEROL 62.5/25MCG 7 PUFFS/INHALER INH SCH (08:15)
[2020-12-30] MEDS: ASPIRIN 81 MG ECTAB PO SCH (08:15)
[2020-12-30] MEDS: FINASTERIDE 5 MG TAB PO SCH (08:15)
[2020-12-30] MEDS: hydroCHLOROthiazide 25 MG TAB PO SCH (08:15)
[2020-12-30] MEDS: METOPROLOL SUCC 50MG EXT REL TAB PO SCH (08:16)
[2020-12-30] MEDS ORDERED: NON-FORMULARY MEDICATION (Glucosamine-Chondroitin [Osteo Bi-Flex] 250-200 mg tablet) PO SCH (09:00)
[2020-12-30] MEDS ORDERED: GREEN TEA LEAF EXTRACT 250 MG PO SCH (09:00)
[2020-12-30] MEDS ORDERED: [UNRECOGNIZED DRUG - OTHER] PO SCH (09:00)
--- NOTE | 2020-12-30 10:25 | Cardiology Consultation ---
Date of Consultation December 30, 2020 Assessment & Plan (1) Chest pain: He presented with an episode of chest pain yesterday afternoon, which lasted about 15-20 mins in duration. He has had no further chest pain since his hospitalization. ECG yesterday did show lateral T wave abnormality, which was new compared to prior studies. Cardiac enzymes have fortunately been undetectable. Will further evaluate for myocardial ischemia with a dobutamine stress echo. Further recommendations to follow pending the results of the stress. (2) HTN (hypertension): BP has been labile this admission but is currently well controlled. Continue current antihypertensive therapy. (3) Sinus bradycardia: He is asymptomatic. Continue beta blockade given history of NSVT. (4) NSVT (nonsustained ventricular tachycardia): He has had documented runs of nonsustained ventricular tachycardia in the past, but no VT noted on telemetry this admission. Continue beta juanita therapy. Patient was discussed with Dr. Michael, and the plan was made in collaboration with him. History of Present Illness Reason for Consultation: Chest pain Requesting Physician: Dr. Kory Marquez History of Present Illness Mr. Chavez is an 85-year-old male with a past medical history significant for COPD, hypertension, dyslipidemia, AAA s/p open repair in 1999, nonsustained VT, syncope, pulmonary nodule, and BPH who was admitted yesterday with chest pain. He reports that yesterday afternoon around noon, he was walking around his house with a wheelbarrow when he developed a gnawing pain across his chest. He noted associated shortness of breath with the chest discomfort, but had no associated nausea, vomiting, or diaphoresis. He told his to call for EMS and then went inside, took 3 baby aspirin and sat down. His symptoms resolved after about 15- 20 mins, and he was rather asymptomatic by the time EMS arrived. He has had no further chest discomfort since the episode yesterday afternoon. He reports chronic dyspnea with exertion secondary to COPD. He has been outside doing some yard work this spring, including picking up branches from his lawn, and he has to take breaks due to shortness of breath. Aside from the episode yesterday afternoon, he has had no other chest discomfort, including doing yard work. He uses 2 L supplemental oxygen at night and occasionally during the day if his O2 sats drop below 90%. He denies orthopnea or lower extremity edema. He denies palpitations, lightheadedness, syncope, or presyncope. He denies abnormal bleeding such as melena, hematochezia, or hematuria. He denies cerebrovascular symptoms. He underwent an echocardiogram in March 2020 which demonstrated normal LV size, wall motion and systolic function with an EF of 65-70%. There was mild LVH and mild MR noted at that time. Family history: Noncontributory given his advanced age. Social history: He is and lives at home with his . He has 3 sons and numerous grandchildren. He quit smoking in 1999. He has a history of smoking 1- 1.5 ppd for around 49 years. He drinks 1 alcoholic beverage every day or every other day. Allergies Allergy/AdvReac Type Severity Reaction Status Date / Time roflumilast [From [facility]] Allergy Intermediate rash Verified 12/29/20 14:14 Home Medications Medication Instructions Recorded Confirmed Type omega-3 acid ethyl esters 1 gram 1 cap PO QAM cap 05/17/19 12/29/20 History capsule aspirin [Aspirin Low Dose] 81 mg PO QAM 06/25/19 12/29/20 History guaifenesin 600 mg tablet, 600 mg PO BID #180 tab 12/12/19 12/29/20 Rx extended release 12 hr Centrum Silver Ultra Men's 1 tab PO QAM 01/18/20 12/29/20 History Saw [place] Extract (w-zinc) 3 cap PO QAM 01/18/20 12/29/20 History green tea leaf extract [Green Tea] 500 mg PO QAM 01/18/20 12/29/20 History glycopyrrolate 9 mcg-formoterol 2 puff INH BID #3 inhaler 05/14/20 12/29/20 Rx 4.8 mcg HFA aerosol inhaler nebulizers #1 ea 07/08/20 12/23/20 Rx sodium chloride 7 % for 4 ml INHALATION BID #240 ml 07/08/20 12/29/20 Rx nebulization albuterol sulfate 90 mcg/actuation 2 puff INHALATION Q6H PRN 09/01/20 12/29/20 History aerosol inhaler glucosamine-chondroitin 250 mg-200 2 tab PO QAM tab 11/11/20 12/29/20 History mg tablet Oxygen Home #1 ea 11/12/20 12/23/20 Rx amlodipine 5 mg PO QAM 12/29/20 12/29/20 History finasteride 5 mg PO QAM 12/29/20 12/29/20 History hydrochlorothiazide 12.5 mg PO QAM 12/29/20 12/29/20 History metoprolol succinate 100 mg PO QAM 12/29/20 12/29/20 History prednisone 10 mg PO QAM 12/29/20 12/29/20 History Patient History Medical History AAA (abdominal aortic aneurysm) Aorto-iliac disease BPH (benign prostatic hyperplasia) Chronic obstructive pulmonary disease follows [facility]. rarely uses rescue inh CKD (chronic kidney disease), stage III Glaucoma of both eyes Hyperlipidemia Hypertension NSVT (nonsustained ventricular tachycardia) pt unaware of this Osteoarthritis Solitary pulmonary nodule follows [facility] [place] Surgical History H/O aortic aneurysm repair Oct 1999- suzy romero / follows Dr. Olivares [facility] [place] History of AAA (abdominal aortic aneurysm) repair History of back surgery History of cataract surgery LEFT History of colonoscopy History of herniorrhaphy History of lumbar laminectomy Inguinal hernia Family History Brother Hypertension Osteoarthritis Unknown Cancer Other Emphysema of lung Denies family history of Myocardial infarction Stroke Social History Smoking Status: Former smoker (QUIT IN 2000, SMOKED FOR 50 YEARS) packs per day: 1; Cigarettes Per Day: 20; Second Hand Exposure: No; Hx Alcohol Use: Yes Alcohol type: hard liquor Alcohol Intake Frequency Comment: 2 vodka cranberry drinks maybe 3-4 days a week Hx Substance Use: No Preferred Language: Sinhala Communication Ability: Effective Visual Impairment: Limited Hearing Ability: Normal 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 Beliefs That Will Affect Care: None marital status: Current Living Situation: Spouse Current Living Situation Comment: Lives independently at home with current occupational status: retired Other Information That Helps Us Care for You: No Feels Safe at Home: Yes Safety Concerns: Feels Safe At This Time caffeine: Yes Dental Care, Regularly: No Physical Activity Frequency: Does not Exercise Seatbelt Use: always Sunscreen Use: Yes Assistive Devices: Oxygen - Continuous Review of Systems Review of Systems: All systems reviewed & are unremarkable except as noted in Subjective Physical Exam Physical Exam: Constitutional: Alert, oriented, in no acute distress. Supplemental oxygen via nasal cannula HEENT: Head is atraumatic and normocephalic. EOMs intact. Sclera non-icteric. Face is symmetric. No perioral cyanosis. Mucous membranes moist Neck: Supple, no JVD Pulmonary: Normal respiratory effort, clear to auscultation throughout Cardiac: Bradycardic, regular, normal S1 and S2, no gallops, no rubs, no murmurs Extremities: No edema. No clubbing or cyanosis. 2+ radial pulses bilaterally Abdomen: Normal bowel sounds, soft, non-tender, no abdominal masses palpated Skin: Normal skin color, turgor, and pigmentation. No rash or skin lesions Neurological: Oriented to person, place, and time Results & Data ([facility]) Vital Signs (Past 12 Hours) Vital Signs Temp Pulse Pulse Resp BP Pulse Ox 12/30/20 07:24 53 L 16 97 12/30/20 07:08 97.9 F 52 L 18 160/72 H 95 12/30/20 04:06 97.5 F L 59 L 20 155/77 H 94 12/29/20 23:29 51 L 12/29/20 23:16 98.1 F 49 L 16 145/75 H 96 Laboratory Results Laboratory Results WBC 10.95 K/uL (4.8-10.8) H 12/29/20 13:49 RBC 4.93 M/uL (4.7-6.1) 12/29/20 13:49 Hgb 15.0 g/dL (14.0-18.0) 12/29/20 13:49 Hct 44.8 % (42-52) 12/29/20 13:49 MCV 90.9 fL (80-100) 12/29/20 13:49 MCH 30.4 pg (25-34) 12/29/20 13:49 MCHC 33.5 g/dL (32-36) 12/29/20 13:49 RDW Std Deviation 51.6 fL (36.4-46.3) H 12/29/20 13:49 RDW Coeff of Conchis 15.5 % (11.5-14.5) H 12/29/20 13:49 Plt Count 236 K/uL (130-400) 12/29/20 13:49 MPV 9.5 fL (7.4-10.4) 12/29/20 13:49 Immature Gran % (Auto) 0.8 % 12/29/20 13:49 Neut % (Auto) 81.7 % 12/29/20 13:49 Lymph % (Auto) 12.2 % 12/29/20 13:49 [place] % (Auto) 4.4 % 12/29/20 13:49 Eos % (Auto) 0.6 % 12/29/20 13:49 Baso % (Auto) 0.3 % 12/29/20 13:49 Neut # (Auto) 8.94 K/uL (1.4-6.5) H 12/29/20 13:49 Lymph # (Auto) 1.34 K/uL (1.2-3.4) 12/29/20 13:49 [place] # (Auto) 0.48 K/uL (0.11-0.59) 12/29/20 13:49 Eos # (Auto) 0.07 K/uL (0-0.5) 12/29/20 13:49 Baso # (Auto) 0.03 K/uL (0-0.2) 12/29/20 13:49 Immature Gran # (Auto) 0.09 K/uL (0.00-0.02) H 12/29/20 13:49 PT 10.2 Seconds (9.0-12.0) 12/29/20 13:49 INR 1.0 (0.9-1.1) 12/29/20 13:49 APTT 23.6 Seconds (21.0-31.0) 12/29/20 13:49 PTT Ratio 0.9 12/29/20 13:49 Sodium 141 mmol/L (136-145) 12/29/20 13:49 Potassium 4.7 mmol/L (3.5-5.1) 12/29/20 13:49 Chloride 108 mmol/L (98-107) H 12/29/20 13:49 Carbon Dioxide 31 mmol/L (21-32) 12/29/20 13:49 Anion Gap 2.0 (3-11) L 12/29/20 13:49 BUN 32 mg/dl (7-18) H 12/29/20 13:49 Creatinine 1.27 mg/dl (0.6-1.4) 12/29/20 13:49 Est Cr Clr Drug Dosing 40.6 ml/min 12/29/20 13:49 Est GFR ( Amer) 58.5 12/29/20 13:49 Est GFR (Non-Af Amer) 50.5 12/29/20 13:49 BUN/Creatinine Ratio 25.2 (10-20) H 12/29/20 13:49 Glucose 95 mg/dl (70-99) 12/29/20 13:49 Calcium 10.6 mg/dl (8.5-10.1) H 12/29/20 13:49 Total Bilirubin 0.4 mg/dl (0.2-1) 12/29/20 13:49 AST 19 U/L (15-37) 12/29/20 13:49 ALT 25 U/L (12-78) 12/29/20 13:49 Alkaline Phosphatase 69 U/L (45-117) 12/29/20 13:49 Troponin I < 0.015 ng/ml (0-0.045) 12/30/20 06:54 Total Protein 6.6 gm/dl (6.4-8.2) 12/29/20 13:49 Albumin 3.3 gm/dl (3.4-5.0) L 12/29/20 13:49 Globulin 3.3 gm/dl (2.5-4.0) 12/29/20 13:49 Albumin/Globulin Ratio 1.0 (0.9-2) 12/29/20 13:49 COVID-19 Eval Order CovFluRsv at [facility] 12/29/20 16:45 SARS-CoV-2 (PCR) NEGATIVE (Negative) 12/29/20 16:45 Influenza Type A (PCR) Negative (Neg) 12/29/20 16:45 Influenza Type B (PCR) Negative (Neg) 12/29/20 16:45 RSV (RT-PCR) Negative (Neg) 12/29/20 16:45 Diagnostic Findings Chest X-Ray 12/29/20: 1. No acute cardiopulmonary findings. No change in appearance of the chest. 2. Emphysema. ECG 12/29/20: Sinus bradycardia at 53 bpm. Lateral T-wave abnormality, which is a new finding. PG Care Time/CCT Total # of Minutes Spent Total Time Spent with Patient: Total time spent is greater than 50% in coordination of care (as documented) at patient's floor/unit and/or counseling patient: Coding Level of Care Code 54420 Initial Inpt Care Lvl 3 Diagnoses Chest pain R07.89 Chest pain type: other chest pain HTN (hypertension) I10 Hypertension type: essential hypertension Sinus bradycardia R00.1 NSVT (nonsustained ventricular tachycardia) I47.2 (1) Chest pain Chest pain type: other chest pain Qualified Code(s): R07.89 - Other chest pain (2) HTN (hypertension) Hypertension type: essential hypertension Qualified Code(s): I10 - Essential (primary) hypertension
[2020-12-30] MEDS ORDERED: DOBUTamine HCL 12.5 MG/ML 20 ML VIAL IV ONE (13:14)
[2020-12-30] MEDS ORDERED: METOPROLOL TARTRATE 1 MG/ML VIAL IV ONE (13:14)
[2020-12-30] MEDS ORDERED: ATROPINE SULFATE 0.1 MG/ML 10ML SYR IV ONE (13:14)
--- NOTE | 2020-12-30 15:27 | XCELERA ---
[id number]
--- NOTE | 2020-12-30 15:58 | Electrocardiogram Report ---
Test Reason : Blood Pressure : / mmHG Vent. Rate : 053 BPM Atrial Rate : 052 BPM P-R Int : 000 ms QRS Dur : 070 ms QT Int : 408 ms P-R-T Axes : 000 038 056 degrees QTc Int : 382 ms Poor data quality, interpretation may be adversely affected Sinus bradycardia T wave abnormality, consider lateral ischemia Abnormal ECG When compared with ECG of 20-JAN-2020 07:23, Vent. rate has decreased BY 29 BPM T wave inversion now evident in Lateral leads Confirmed by Samm Michael ([id number]) on 12/30/2020 3:57:32 PM Referred By: REFERRED SELF Confirmed By:Samm Michael
--- NOTE | 2020-12-30 21:44 | Hospitalist Progress Note ---
Date of Service December 30, 2020 Assessment & Plan (1) Chest pain: r/o ID Stress test is negative. Concern over aspiration: will have video swallow in AM. (2) Hypoxia: Aim O2 sats > 94% in setting of possible ACS. 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 (5) HTN (hypertension): Continue on his usual regimen on amlodipine, HCTZ, metoprolol (6) NSVT (nonsustained ventricular tachycardia): Patient usually unaware of these episodes therefore unlikely cause of his chest pain but will monitor on telemetry overnight for recurrence Continue on metoprolol succinate 100mg PO daily (7) CKD (chronic kidney disease), stage III: Cr at baseline (8) BPH (benign prostatic hyperplasia): Continue finasteride and [facility] Admission and Anticipated Discharge Date Admission Date: December 29, 2020 Subjective Patient reports doing well. Review of Systems Review of Systems: All systems reviewed & are unremarkable except as noted in HPI & below Physical Exam Physical Exam: Constitutional: WD/WN, vitals as above Eyes: + anicteric sclerae; normal pupil size ENMT: external ear and nose normal, oropharynx normal Neck: trachea midline, no thyromegaly Respiratory: normal respiratory effort, able to speak in complete sentences; no respiratory distress, no labored breathing, does not use accessory muscles, no cough and not tachypneic Cardiovascular: RRR, no murmur, no edema Gastrointestinal (Abdomen): normal bowel sounds, soft, nontender, no hepatosplenomegaly Musculoskeletal: no cyanosis or clubbing, extremities motor strength 5/5 Skin: no rashes, warm and dry Neurologic: moves all extremities and awake; not confused Psychiatric: A+Ox3, euthymic affect Genitourinary: no CVA tenderness Results & Data Results & Data ([facility]) Vital Signs (Past 12 Hours) Vital Signs Temp Pulse Resp BP Pulse Ox 12/30/20 19:53 36.4 C L 59 L 18 135/71 94 12/30/20 19:37 56 L 18 91 12/30/20 15:37 36.4 C L 59 L 18 111/65 93 12/30/20 11:38 36.3 C L 52 L 18 129/67 93 PG Care Time/CCT Total # of Minutes Spent Total Time Spent with Patient: Total time spent is greater than 50% in coordination of care (as documented) at patient's floor/unit and/or counseling patient: Coding Level of Care Code 95647 Subseq Hosp Care Lvl 3 Diagnoses Chest pain R07.89 Chest pain type: other chest pain Hypoxia R09.02 Chronic cough R05 COPD (chronic obstructive pulmonary disease) J43.9 COPD type: emphysema Emphysema type: unspecified HTN (hypertension) I10 Hypertension type: essential hypertension NSVT (nonsustained ventricular tachycardia) I47.2 CKD (chronic kidney disease), stage III N18.30 BPH (benign prostatic hyperplasia) N40.0 Time Spent (min) 35 (1) COPD (chronic obstructive pulmonary disease) COPD type: emphysema Emphysema type: unspecified Qualified Code(s): J43.9 - Emphysema, unspecified (2) Chest pain Chest pain type: other chest pain Qualified Code(s): R07.89 - Other chest pain (3) HTN (hypertension) Hypertension type: essential hypertension Qualified Code(s): I10 - Essential (primary) hypertension
[2020-12-31] MEDS: SODIUM CHLOR 7% 4 ML NEB INH SCH (07:16)
[2020-12-31] MEDS: guaiFENesin 600 MG TABCR PO SCH (08:23)
[2020-12-31] MEDS: hydroCHLOROthiazide 25 MG TAB PO SCH (08:23)
[2020-12-31] MEDS: predniSONE 10 MG TABLET PO SCH (08:24)
[2020-12-31] MEDS: CEROVITE ADV FORMULA TAB PO SCH (08:24)
[2020-12-31] MEDS: amLODIPine BESYLATE 5 MG TAB PO SCH (08:24)
[2020-12-31] MEDS: ASPIRIN 81 MG ECTAB PO SCH (08:25)
[2020-12-31] MEDS: FINASTERIDE 5 MG TAB PO SCH (08:25)
[2020-12-31] MEDS: METOPROLOL SUCC 50MG EXT REL TAB PO SCH (08:25)
[2020-12-31] MEDS: UMECLIDINIUM/VILANTEROL 62.5/25MCG 7 PUFFS/INHALER INH SCH (08:25)
--- NOTE | 2020-12-31 09:17 | Cardiology Progress Note ---
Date of Service December 31, 2020 Assessment & Plan (1) Chest pain: He had an atypical chest discomfort which is almost certainly noncardiac. I suspect musculoskeletal. (2) Sinus bradycardia: He does have sinus bradycardia which is asymptomatic and in part medication related. I would not alter his treatment. (3) NSVT (nonsustained ventricular tachycardia): He has a history of nonsustained ventricular tachycardia, he has not exhibited that here in the hospital. I would continue beta-blockade. Admission and Anticipated Discharge Date Admission Date: December 29, 2020 Subjective He has had no further chest discomfort, from the cardiovascular standpoint he feels well. No shortness of breath at rest. Physical Exam Physical Exam: Constitutional: Alert, cooperative and in no distress. Pulmonary: Clear to auscultation bilaterally. Cardiac: Regular rhythm with no murmur, gallop or rub. Abdomen: Soft, nontender with normal bowel sounds. Extremities: No edema. Skin: No rash, ecchymoses or petechiae. Results & Data ([facility]) Vital Signs (Past 12 Hours) Vital Signs Temp Pulse Pulse Resp BP Pulse Ox 12/31/20 08:21 64 12/31/20 07:46 36.8 C 57 L 18 105/86 56 L 12/31/20 07:18 51 L 16 94 12/31/20 03:24 36.4 C L 48 L 16 115/70 95 12/30/20 23:39 47 L 12/30/20 23:08 36.5 C 48 L 15 143/78 H 96 Laboratory Results Intake and Output 12/30/20 12/31/20 12/31/20 22:59 06:59 14:59 Intake Total 545 / 545 Balance 545 / 545 Intake: Oral 545 / 545 Other: Other Intake Source sips Weight 67.1 kg Weight Measurement Method Built in [facility] Diagnostic Findings Telemetry: Sinus rhythm and sinus bradycardia, no significant arrhythmia PG Care Time/CCT Total # of Minutes Spent Total Time Spent with Patient: Total time spent is greater than 50% in coordination of care (as documented) at patient's floor/unit and/or counseling patient: Coding Level of Care Code 75650 Subseq Hosp Care Lvl 2 Diagnoses Chest pain R07.89 Chest pain type: other chest pain Sinus bradycardia R00.1 NSVT (nonsustained ventricular tachycardia) I47.2 (1) Chest pain Chest pain type: other chest pain Qualified Code(s): R07.89 - Other chest pain
--- NOTE | 2020-12-31 14:24 | Fluoroscopy Report ---
MODIFIED BARIUM SWALLOW CLINICAL HISTORY: chronic cough; r/o aspiration COMPARISON STUDY: None. FLUOROSCOPY TIME: 2 minutes. TECHNIQUE: A modified barium swallow was performed in conjunction with Speech Pathology. The patient ingested varying consistencies of barium containing material. Video fluoroscopy was performed. FINDINGS: No tracheal aspiration was identified with thin liquids, nectar thick liquids, pudding or c rackers with paste. Swallowing mechanism was intact. Laryngeal elevation was normal. Epiglottic inver cade was normal. IMPRESSION: 1. Intact swallowing mechanism. No tracheal aspiration. 2. Full recommendations by speech pathology to follow. ACT 112: Negative or not required by law. Electronically signed by: Moe Agustin M.D. 12/31/2020 2:23 PM
[2020-12-31 15:13] LABS: Basophils # (auto) 0.02 K/uL (0-0.2); Basophils % (auto) 0.2 %; Eosinophils # (auto) 0.04 K/uL (0-0.5); Eosinophils % (auto) 0.3 %; Hematocrit (blood only) 47.8 % (42-52); Hemoglobin 15.7 g/dL (14.0-18.0); Immature Granulocytes # (auto) 0.07 K/uL (0.00-0.02); Immature Granulocytes % (auto) 0.6 %; Lymphocytes # (auto) 1.09 K/uL (1.2-3.4); Lymphocytes % (auto) 9.5 %; Mean Corpuscular Hgb Conc 32.8 g/dL (32-36); Mean Corpuscular Volume 91.2 fL (80-100); Monocytes # (auto) 0.31 K/uL (0.11-0.59); Monocytes % (auto) 2.7 %; Neutrophils # (auto) 9.91 K/uL (1.4-6.5); Neutrophils % (auto) 86.7 %; Platelet Count 189 K/uL (130-400); RDW Coefficient of Variation 15.3 % (11.5-14.5); RDW Standard Deviation 51.2 fL (36.4-46.3); Red Blood Count 5.24 M/uL (4.7-6.1); White Blood Count 11.44 K/uL (4.8-10.8)
[2020-12-31 15:38] LABS: BUN Creatinine Ratio 19.1 (10-20); Calcium 10.7 mg/dl (8.5-10.1); Est GFR (African American) 37.6; Est GFR (Non-African American) 32.4; Potassium 4.6 mmol/L (3.5-5.1)
--- NOTE | 2021-01-07 22:31 | Discharge Summary ---
Date of Service December 31, 2020 Admission HPI Per Admitting Provider Eliazar Chavez is an 85-year-old male who presents to the ER with chest pain. Chest pain occurred while walking. Severity 5/10. Lasted for 15-20 mins, occurred around noon. Substernal from breast to breast, no radiation. Took addition x3 aspirin and not returned since. Has not moved much since. No worse on limited exertion he has done. Never had similar pain in the past. Never had UT in the past. Former smoker - quit 1999, previously smoked 1-1.5pcks/day. 1-2 shots of vodka/day. No illicit substances. No syncope, presyncope, palpitations, claudications. He does note orthopnea but only uses one pillow to sleep. 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 Sporadic phlegm all year round, been about the same as usual. No fevers or chills. Never been evaluated by [facility]T for aspirations despite chronic cough although does not note significant worsening after eating. He was recently placed on prednisone and Augmentin by his oil fire specialist due to worsening shortness of breath and cough on 12/09 which the patient reports has been somewhat effective. He notes his PCP has arranged a stress echocardiogram that is arranged in In the ER his initial troponin is negative. However EKG with new TWI in lateral leads is concerning. He has been chest pain free since this episode. He was referred to medicine for admission and ongoing management for chest pain rule out ACS. Principal Diagnosis chest pain Discharge Exam Constitutional: WD/WN, vitals as above Eyes: + anicteric sclerae; normal pupil size ENMT: external ear and nose normal, oropharynx normal Neck: trachea midline, no thyromegaly Respiratory: normal respiratory effort, able to speak in complete sentences; no respiratory distress, no labored breathing, does not use accessory muscles, no cough and not tachypneic Cardiovascular: RRR, no murmur, no edema Gastrointestinal (Abdomen): normal bowel sounds, soft, nontender, no hepatosplenomegaly Musculoskeletal: no cyanosis or clubbing, extremities motor strength 5/5 Skin: no rashes, warm and dry Neurologic: moves all extremities and awake; not confused Psychiatric: A+Ox3, euthymic affect Genitourinary: no CVA tenderness Discharge Data Allergies Allergy/AdvReac Type Severity Reaction Status Date / Time roflumilast [From [facility]] Allergy Intermediate rash Verified 01/05/21 15:39 Consultations 12/29/20 16:11 ED Decision to Admit Stat 12/29/20 20:26 Consult Cardiology Routine Ordered Studies 12/31/20 14:00 FL video swallow Routine Hospital Course (1) Chest pain: r/o UT Stress test is negative. Concern over aspiration: will have video swallow: this was negative. (2) Hypoxia: Aim O2 sats > 94% in setting of possible ACS. However likely the patient chronically runs in the low 90s (3) Chronic cough: Assess for chronic aspirations with SLT consult Otherwise continue his usual outpatient medication for COPD and mucus plugging Continue on current prednisone taper 10mg PO daily (4) COPD (chronic obstructive pulmonary disease): Continue on his usual home inhalers Improved since recent steroid and antibiotics prescribed by his oil fire specialist. (5) HTN (hypertension): Continue on his usual regimen on amlodipine, HCTZ, metoprolol (6) NSVT (nonsustained ventricular tachycardia): Patient usually unaware of these episodes therefore unlikely cause of his chest pain but will monitor on telemetry overnight for recurrence Continue on metoprolol succinate 100mg PO daily (7) CKD (chronic kidney disease), stage III: Cr at baseline (8) BPH (benign prostatic hyperplasia): Continue finasteride and saw palmetto Total Time Total Time Spent Total Time Spent (In Minutes): 32 Total Time Includes: Examination of the Patient, Discharge Planning and Medication Reconciliation Discharge Plan Discharge Items Patient Disposition: Home - Self-Care Reason For Visit: CHEST PAIN RULE OUT ACS Discharge Diagnosis: Chest pain Activity: Resume your previous activity Non-emergency contact: Primary Care Provider Call non-emergency contact if: you have any medication questions Follow-up/Referrals: Ignacio Alonzo MD [Primary Care Provider] - Diet: Regular Addtl Attending Provider Instructions: You have been hospitalized for an acute medical problem. During your stay at [facility], we have made an effort to correct the problem that brought you to the hospital while keeping you as comfortable as possible. Medications were used to bring your condition under control and your discharge instructions will include directions for any medications you should take after leaving the hospital. Please make sure you see your Primary Care Provider as part of your follow up plan. You were evaluated for chest pain and swallowing difficulties. Both workup were negative. will recommend followup with PCP in 1-2 weeks. Pending Studies at Discharge: No Stand-Alone Forms: My [facility], Smoking Cessation Medications and DC Order Prescriptions: New amlodipine 2.5 mg tablet 2.5 mg PO DAILY Qty: 30 RF: 0 Continued guaifenesin [Mucinex] 600 mg tablet extended release 12hr 600 mg PO BID Qty: 180 RF: 1 glucosamine-chondroitin [Osteo Bi-Flex] 250-200 mg tablet 2 tab PO QAM RF: 0 omega-3 acid ethyl esters 1 gram capsule 1 cap PO QAM RF: 0 albuterol sulfate [ProAir HFA] 90 mcg/actuation HFA aerosol inhaler 2 puff inhalation Q6H PRN (Reason: Shortness Of Breath) RF: 0 Bevespi Aerosphere 9-4.8 mcg HFA aerosol inhaler 2 puff INH BID Qty: 3 RF: 1 (DME) nebulizers Misc See Rx Instructions miscellaneous .MEDSUPPLY Qty: 1 RF: 0 sodium chloride 7 % solution for nebulization 4 ml inhalation BID Qty: 240 RF: 5 Saw [place] Extract (w-zinc) 160-15 mg Capsule 3 cap PO QAM RF: 0 green tea leaf extract [Green Tea] 250 mg Capsule 500 mg PO QAM RF: 0 Centrum Silver Ultra Men's 300-600-300 mcg Tablet 1 tab PO QAM RF: 0 aspirin [Aspirin Low Dose] 81 mg Tablet,Delayed Release (Dr/Ec) 81 mg PO QAM RF: 0 prednisone 10 mg tablet 10 mg PO QAM RF: 0 metoprolol succinate 100 mg tablet extended release 24 hr 100 mg PO QAM RF: 0 finasteride 5 mg tablet 5 mg PO QAM RF: 0 Discontinued amlodipine 5 mg tablet 5 mg PO QAM RF: 0 No Action hydrochlorothiazide 12.5 mg tablet 12.5 mg PO QAM Qty: 90 RF: 3 Discharge Orders: Discharge Order (Routine); Ordered 12/31/20 Ordered By: Victor Hugo Coffman Admission Data Admit Date/Time: 12/29/20 16:58 Attending Provider: Victor Hugo Coffman Admit Provider: Kory Marquez Primary Care Provider: Ignacio Alonzo Other Providers: Samm Michael ; Jun Jimenez Other Interventions: Discharge Summary Assessment (RN) Last Done: 12/31/20 15:40 Coding Level of Care Code D/C Day Management >30 mins Diagnoses Chest pain R07.89 Chest pain type: other chest pain Hypoxia R09.02 Chronic cough R05 COPD (chronic obstructive pulmonary disease) J43.9 COPD type: emphysema Emphysema type: unspecified HTN (hypertension) I10 Hypertension type: essential hypertension NSVT (nonsustained ventricular tachycardia) I47.2 CKD (chronic kidney disease), stage III N18.30 BPH (benign prostatic hyperplasia) N40.0 Time Spent (min) 33
--- NOTE | 2021-03-09 14:39 | Coding Query ---
A supporting diagnosis is required for the test/procedure performed on this patient in order for us to be reimbursed by the patient's insurance. Please provide a supporting diagnosis for the following test/procedure listed below next to the test name along with your signature. *If there is no additional diagnosis for this patient that would support the following test/procedure please document that below next to the test/procedure. Test(s)/Procedure(s) that require a supporting diagnosis: VIDEO SWALLOW DIAGNOSIS: hypoxia and chronic aspirations Provider Signature: Date: Thank you Mary Loen Health Information Management Once completed, please kindly fax back to [phone] For questions please call [phone] GABBY
== END 2020-12-31 16:35 | disposition home or self-care (01) ==
LOC: ED 13:42 → 2S 13:42 → SUATTDRO 16:58 → 2S 19:35

== ENCOUNTER 2021-09-19 23:13 | Observation (INO) ==
[2021-09-19] MEDS ORDERED: ACETAMINOPHEN 500 MG TAB PO STA (23:28)
--- NOTE | 2021-09-19 23:34 | Emergency Department Note ---
History of Present Illness General Chief complaint: Respiratory Problems Stated complaint: Breathing Difficulty Time Seen by Provider: 09/19/21 23:16 History of Present Illness 86-year-old male with a complaint of shaking chills and rigors that started at 830 this evening. Patient states he has had a cough cold congestion for the past day. Patient uses home oxygen in the evening. Patient is COVID vaccinated with a booster. Patient states he was concerned as he had worsening shortness of breath and shaking chills and rigors in the past 30 minutes and he called EMS because of this. Patient denies current chest pain abdominal pain nausea vomiting diarrhea. There were no other mitigating or alleviating factors Home Medications Medication Instructions Recorded Confirmed Type omega-3 acid ethyl esters 1 gram 1 cap PO QAM cap 05/17/19 09/19/21 History capsule aspirin 81 mg tablet,delayed 81 mg PO QAM 06/25/19 09/19/21 History release (Aspirin Low Dose) guaifenesin 600 mg tablet, 600 mg PO BID #180 tab 12/12/19 09/19/21 Rx extended release 12 hr (Mucinex) green tea leaf extract 250 mg 500 mg PO QAM 01/18/20 09/19/21 History capsule (Green Tea) jszbooul-lcs-vwchu acid 300 1 tab PO QAM 01/18/20 09/19/21 History mcg-lycopene 600 mcg-lutein 300 mcg tablet (Centrum Silver Ultra Men's) saw palmetto fruit extract-zinc 3 cap PO QAM 01/18/20 09/19/21 History picolinate 160 mg-15 mg capsule (Saw [place] Extract (with zinc)) nebulizers #1 ea 07/08/20 09/16/21 Rx glucosamine-chondroitin 250 mg-200 2 tab PO QAM tab 11/11/20 09/19/21 History mg tablet (Osteo Bi-Flex) hydrochlorothiazide 12.5 mg tablet 12.5 mg PO QAM #90 tab 01/01/21 09/19/21 Rx ipratropium 0.5 mg-albuterol 3 mg 3 ml INHALATION Q8H PRN #180 ml 02/26/21 09/19/21 Rx (2.5 mg base)/3 mL nebulization soln Flutter Valve #1 ea 03/10/21 09/16/21 Rx sodium chloride 7 % for 4 ml INHALATION BID 04/23/21 09/19/21 History nebulization finasteride 5 mg tablet 5 mg PO DAILY #90 tab 06/30/21 09/19/21 Rx albuterol sulfate 90 mcg/actuation 2 puff INHALATION Q6H PRN #1 07/27/21 09/19/21 Rx aerosol inhaler (ProAir HFA) inhaler metoprolol succinate 50 mg 50 mg PO DAILY #90 tab 08/31/21 09/19/21 Rx tablet,extended release 24 hr amlodipine 2.5 mg tablet 2.5 mg PO DAILY 09/01/21 09/19/21 History fluticasone fur. 100 mcg-umeclid 1 inh INHALATION DAILY #3 inhaler 09/16/21 09/19/21 Rx 62.5 mcg-vilant 25 mcg inhalat.powder (Trelegy Ellipta) Allergies Allergy/AdvReac Type Severity Reaction Status Date / Time roflumilast [From [facility]] Allergy Intermediate rash Verified 09/19/21 23:18 Past Med/Surg History Medical History AAA (abdominal aortic aneurysm) Aorto-iliac disease Chest pain Chronic cough Chronic obstructive pulmonary disease follows Jovany Borja. rarely uses rescue inh CKD (chronic kidney disease), stage III COPD (chronic obstructive pulmonary disease) Glaucoma of both eyes HTN (hypertension) Hyperlipidemia Hypertension NSVT (nonsustained ventricular tachycardia) pt unaware of this Osteoarthritis Sinus bradycardia Solitary pulmonary nodule follows [facility] [place] Surgical History H/O aortic aneurysm repair Oct 1999- suzy romero / follows Dr. Olivares [facility] [place] History of AAA (abdominal aortic aneurysm) repair History of back surgery History of cataract surgery LEFT History of colonoscopy History of herniorrhaphy History of lumbar laminectomy Inguinal hernia Family History Brother Hypertension Osteoarthritis Unknown Cancer Other Emphysema of lung Denies family history of Myocardial infarction Stroke Social History Smoking Status: Former smoker Tobacco Type: Cigarettes packs per day: 1; Cigarettes Per Day: 20; Second Hand Exposure: No; Hx Alcohol Use: Yes Alcohol type: hard liquor Alcohol Intake Frequency Comment: 2 vodka cranberry drinks maybe 3-4 days a week Hx Substance Use: No Preferred Language: Mongolian Communication Ability: Effective Visual Impairment: Limited Hearing Ability: Normal [employer] Required: Yes Beliefs That Will Affect Care: None marital status: Current Living Situation: Spouse Current Living Situation Comment: Lives independently at home with current occupational status: retired Feels Safe at Home: Yes caffeine: Yes Dental Care, Regularly: No Physical Activity Frequency: Does not Exercise Seatbelt Use: always Sunscreen Use: Yes Assistive Devices: Oxygen - at Night Review of Systems A total of 10 systems reviewed and were otherwise negative Constitutional: + fever and + body aches Respiratory: + cough and + dyspnea Musculoskeletal: + myalgia Physical Exam Vital Signs Vital Signs - 24 hr 09/19/21 23:30 09/19/21 23:37 09/19/21 23:43 Temperature 38.4 C H Temperature Source Oral Pulse Rate 91 H 89 Pulse Rate from SpO2 Sensor Respiratory Rate 31 H 22 Respiratory Effort / Characteristics Labored Labored Respiratory Depth Normal Normal Respiratory Pattern Regular Regular Blood Pressure 159/70 H Blood Pressure Mean 99 Blood Pressure Position Lying Pulse Oximetry 94 91 93 Oxygen Delivery Method Nasal Cannula Nasal Cannula Nasal Cannula Oxygen Flow Rate 4 4 4 Sepsis Recent Fever Within 48 Hours Yes Sepsis New/Unexplained Change in Mental Status No Sepsis Action Taken by Nursing Physician Notified 09/19/21 23:45 09/20/21 00:00 09/20/21 00:16 Temperature Temperature Source Pulse Rate 82 87 92 H Pulse Rate from SpO2 Sensor 89 Respiratory Rate 26 H 27 H 28 H Respiratory Effort / Characteristics Non-Labored Respiratory Depth Respiratory Pattern Blood Pressure 125/63 106/65 Blood Pressure Mean 83 78 Blood Pressure Position Pulse Oximetry 92 93 95 Oxygen Delivery Method Nasal Cannula Nasal Cannula Oxygen Flow Rate 4 4 Sepsis Recent Fever Within 48 Hours Sepsis New/Unexplained Change in Mental Status Sepsis Action Taken by Nursing 09/20/21 00:30 09/20/21 00:45 09/20/21 00:46 Temperature 38.1 C H Temperature Source Oral Pulse Rate 82 80 Pulse Rate from SpO2 Sensor Respiratory Rate 27 H 24 Respiratory Effort / Characteristics Labored Respiratory Depth Respiratory Pattern Blood Pressure 111/56 L 108/54 L Blood Pressure Mean 74 72 Blood Pressure Position Pulse Oximetry 96 94 Oxygen Delivery Method Nasal Cannula Nasal Cannula Oxygen Flow Rate 4 4 Sepsis Recent Fever Within 48 Hours Sepsis New/Unexplained Change in Mental Status Sepsis Action Taken by Nursing 09/20/21 01:00 09/20/21 01:01 09/20/21 01:15 Temperature Temperature Source Pulse Rate 84 74 Pulse Rate from SpO2 Sensor Respiratory Rate 24 24 Respiratory Effort / Characteristics Labored Respiratory Depth Respiratory Pattern Blood Pressure 124/61 98/47 L Blood Pressure Mean 82 64 Blood Pressure Position Pulse Oximetry 95 95 Oxygen Delivery Method Nasal Cannula Nasal Cannula Oxygen Flow Rate 2 4 Sepsis Recent Fever Within 48 Hours Sepsis New/Unexplained Change in Mental Status Sepsis Action Taken by Nursing VITAL SIGNS - Vital signs and nursing notes were reviewed. GENERAL -86-year-old male appearing his stated age who is in no acute distress. Communicates well with provider and answers questions appropriately. SKIN - Without rashes. HEAD - NC/AT. EYES - PERRL with EOMI bilaterally. Sclera anicteric. Palpebral conjunctiva pink and moist with no injection noted. EARS - No deformities of external structures noted on gross examination bilaterally. No pain elicited with palpation of the tragus bilaterally. External auditory canals without discharge or otorrhea. Tympanic membranes pearly diaz without retraction or bulging. NOSE - Midline and without cyanosis. No epistaxis or purulent drainage noted. Septum midline without deviation or septal hematoma noted. MOUTH/OROPHARYNX - Without perioral cyanosis. NECK - Neck with FROM. Supple to palpation. [] lymphadenopathy noted. No nuchal rigidity. LUNGS - Chest wall symmetric without accessory muscle use, intercostals retractions, or central cyanosis. Bilateral rhonchi CARDIAC - RRR with S1/S2. No murmur, rubs, or gallops appreciated. ABDOMEN - Abdominal contour soft without pulsations or visible masses. BS normoactive all four quadrants. No tenderness, palpable masses, hepatosplenomegaly, or ascites noted. EXTREMITIES - No clubbing or peripheral cyanosis. No pretibial edema present. +5/5 strength noted in UE/LE bilaterally. NEUROLOGIC - Cranial nerves II through XII grossly intact. PSYCH - A&Ox3 and cooperates fully with examiner. Pt is very pleasant and interacts well with examiner. Course Reevaluation(s) Reevaluation #1: Patient is resting in no distress is on 2 L of oxygen not hypoxic. Patient clearly has a new left lower lobe infiltrate and was started on IV Rocephin and Zithromax, the patient is COVID-negative, patient will be admitted for a left lower lobe pneumonia; case was discussed with Dr. Bonner for admission Administered Medications Azithromycin 500 mg/ Dextrose 255 mls @ 127.5 mls/hr IV NOW STA Stop: 09/20/21 01:57 Last Admin: 09/20/21 00:44 Dose: 127.5 mls/hr Documented by: [id number] Discontinued Medications Acetaminophen (Acetaminophen 500 Mg Tab) 1,000 mg PO NOW STA Stop: 09/19/21 23:29 Last Admin: 09/19/21 23:39 Dose: 1,000 mg Documented by: [id number] Ceftriaxone Sodium (Rocephin) 1,000 mg in 50 mls @ 100 mls/hr IV NOW STA Stop: 09/20/21 00:27 Last Infusion: 09/20/21 00:48 Dose: 0 mls/hr Documented by: [id number] Admin: 09/20/21 00:15 Dose: 100 mls/hr Documented by: [id number] Medical Decision Making Medical Records Attestation: I reviewed the patient's medical records. Home Medications Current Medication List: was personally reviewed by me Laboratory Data Attestation: I reviewed the patient's lab results. Result diagrams: 09/19/21 23:30 09/19/21 23:30 Lab Results 09/19/21 09/19/21 09/19/21 Range/Units 23:30 23:30 23:30 WBC 9.99 (4.8-10.8) K/uL RBC 5.10 (4.7-6.1) M/uL Hgb 14.9 (14.0-18.0) g/dL Hct 46.3 (42-52) % MCV 90.8 (80-100) fL MCH 29.2 (25-34) pg MCHC 32.2 (32-36) g/dL RDW Std Deviation 50.6 H (36.4-46.3) fL RDW Coeff of Conchis 15.1 H (11.5-14.5) % Plt Count 163 (130-400) K/uL MPV 8.9 (7.4-10.4) fL Immature Gran % (Auto) 0.1 % Neut % (Auto) 90.4 % Lymph % (Auto) 5.2 % Ross % (Auto) 3.3 % Eos % (Auto) 0.8 % Baso % (Auto) 0.2 % Neut # (Auto) 9.03 H (1.4-6.5) K/uL Lymph # (Auto) 0.52 L (1.2-3.4) K/uL Ross # (Auto) 0.33 (0.11-0.59) K/uL Eos # (Auto) 0.08 (0-0.5) K/uL Baso # (Auto) 0.02 (0-0.2) K/uL Immature Gran # (Auto) 0.01 (0.00-0.02) K/uL PT 10.6 (9.0-12.0) Seconds INR 1.0 (0.9-1.1) APTT 24.1 (21.0-31.0) Seconds PTT Ratio 0.9 Sodium 138 (136-145) mmol/L Potassium 4.2 (3.5-5.1) mmol/L Chloride 108 H (98-107) mmol/L Carbon Dioxide 23 (21-32) mmol/L Anion Gap 7 (3-11) BUN 26 H (6-23) mg/dl Creatinine 1.19 (0.6-1.4) mg/dl Est Cr Clr Drug Dosing Not Reportable Est GFR ( Amer) 62.8 ml/min Est GFR (Non-Af Amer) 54.2 ml/min BUN/Creatinine Ratio 21.8 H (10-20) Glucose 109 H (70-99(Fasting)) mg/dl Lactate (0.4-2.0) mmol/L Calcium 10.3 H (8.5-10.1) mg/dl Magnesium 1.7 (1.7-2.4) mg/dl Total Bilirubin 0.4 (0.2-1.0) mg/dl AST 19 (13-39) U/L ALT 11 (7-52) U/L Alkaline Phosphatase 70 (34-104) U/L Total Protein 7.0 (6.0-8.3) gm/dl Albumin 3.8 (3.4-5.0) gm/dl Globulin 3.2 (2.5-4.0) gm/dl Albumin/Globulin Ratio 1.2 (0.9-2) Urine Color Urine Appearance (Clear) Urine pH (4.5-7.5) Ur Specific [place] (1.000-1.030) Urine Protein (Negative) Urine Glucose (UA) (Negative) Urine Ketones (Negative) Urine Blood (Negative) Urine Nitrite (Negative) Urine Bilirubin (Negative) Urine Urobilinogen (Negative) Ur Leukocyte Esterase (Negative) SARS-CoV-2 (PCR) (Negative) Influenza Type A (PCR) (Neg) Influenza Type B (PCR) (Neg) RSV (RT-PCR) (Neg) 09/19/21 09/19/21 09/20/21 Range/Units 23:31 23:41 00:18 WBC (4.8-10.8) K/uL RBC (4.7-6.1) M/uL Hgb (14.0-18.0) g/dL Hct (42-52) % MCV (80-100) fL MCH (25-34) pg MCHC (32-36) g/dL RDW Std Deviation (36.4-46.3) fL RDW Coeff of Conchis (11.5-14.5) % Plt Count (130-400) K/uL MPV (7.4-10.4) fL Immature Gran % (Auto) % Neut % (Auto) % Lymph % (Auto) % Ross % (Auto) % Eos % (Auto) % Baso % (Auto) % Neut # (Auto) (1.4-6.5) K/uL Lymph # (Auto) (1.2-3.4) K/uL Ross # (Auto) (0.11-0.59) K/uL Eos # (Auto) (0-0.5) K/uL Baso # (Auto) (0-0.2) K/uL Immature Gran # (Auto) (0.00-0.02) K/uL PT (9.0-12.0) Seconds INR (0.9-1.1) APTT (21.0-31.0) Seconds PTT Ratio Sodium (136-145) mmol/L Potassium (3.5-5.1) mmol/L Chloride (98-107) mmol/L Carbon Dioxide (21-32) mmol/L Anion Gap (3-11) BUN (6-23) mg/dl Creatinine (0.6-1.4) mg/dl Est Cr Clr Drug Dosing Est GFR ( Amer) ml/min Est GFR (Non-Af Amer) ml/min BUN/Creatinine Ratio (10-20) Glucose (70-99(Fasting)) mg/dl Lactate 1.5 (0.4-2.0) mmol/L Calcium (8.5-10.1) mg/dl Magnesium (1.7-2.4) mg/dl Total Bilirubin (0.2-1.0) mg/dl AST (13-39) U/L ALT (7-52) U/L Alkaline Phosphatase (34-104) U/L Total Protein (6.0-8.3) gm/dl Albumin (3.4-5.0) gm/dl Globulin (2.5-4.0) gm/dl Albumin/Globulin Ratio (0.9-2) Urine Color Yellow Urine Appearance Clear (Clear) Urine pH 5.0 (4.5-7.5) Ur Specific [place] 1.017 (1.000-1.030) Urine Protein Negative (Negative) Urine Glucose (UA) Negative (Negative) Urine Ketones Negative (Negative) Urine Blood Negative (Negative) Urine Nitrite Negative (Negative) Urine Bilirubin Negative (Negative) Urine Urobilinogen Negative (Negative) Ur Leukocyte Esterase Negative (Negative) SARS-CoV-2 (PCR) NEGATIVE (Negative) Influenza Type A (PCR) Negative (Neg) Influenza Type B (PCR) Negative (Neg) RSV (RT-PCR) Negative (Neg) Imaging Data My Impression: Chest x-ray interpreted by me bilateral lower lobe infiltrates left greater than right in comparison the prior chest x-ray MDM Narrative Medical decision making differential diagnosis includes pneumonia bronchitis upper respiratory tract infection COVID, sepsis, Sirs; we will check sepsis bundle Impression & Plan Pneumonia Discharge Plan Visit Data Chief Complaint: Respiratory Problems Stated Complaint: Breathing Difficulty ED Provider: Nikolas Oviedo Discharge Problem: Pneumonia Patient Disposition: Being Evaluated by Hospitalist Forms Stand Alone Forms: My [facility] Prescriptions Prescriptions: No Action guaifenesin [Mucinex] 600 mg tablet extended release 12hr 600 mg PO BID Qty: 180 RF: 1 hydrochlorothiazide 12.5 mg tablet 12.5 mg PO QAM Qty: 90 RF: 3 finasteride 5 mg tablet 5 mg PO DAILY Qty: 90 RF: 3 albuterol sulfate [ProAir HFA] 90 mcg/actuation HFA aerosol inhaler 2 puff inhalation Q6H PRN (Reason: Shortness Of Breath) Qty: 1 RF: 5 glucosamine-chondroitin [Osteo Bi-Flex] 250-200 mg tablet 2 tab PO QAM RF: 0 (DME) Flutter Valve Device See Rx Instructions .MEDSUPPLY Qty: 1 RF: 0 ipratropium-albuterol 0.5 mg-3 mg(2.5 mg base)/3 mL solution for nebulization 3 ml inhalation Q8H PRN (Reason: shortness of breath or wheezing) Qty: 180 RF: 2 Trelegy Ellipta 100-62.5-25 mcg blister with device 1 inh inhalation DAILY Qty: 3 RF: 1 metoprolol succinate 50 mg tablet extended release 24 hr 50 mg PO DAILY Qty: 90 RF: 3 amlodipine 2.5 mg tablet 2.5 mg PO DAILY RF: 0 omega-3 acid ethyl esters 1 gram capsule 1 cap PO QAM RF: 0 (DME) nebulizers Misc See Rx Instructions miscellaneous .MEDSUPPLY Qty: 1 RF: 0 Saw [place] Extract (w-zinc) 160-15 mg Capsule 3 cap PO QAM RF: 0 green tea leaf extract [Green Tea] 250 mg Capsule 500 mg PO QAM RF: 0 Centrum Silver Ultra Men's 300-600-300 mcg Tablet 1 tab PO QAM RF: 0 aspirin [Aspirin Low Dose] 81 mg Tablet,Delayed Release (Dr/Ec) 81 mg PO QAM RF: 0 sodium chloride 7 % solution for nebulization 4 ml INHALATION BID RF: 0 Referrals Referrals: Ignacio Alonzo MD [Primary Care Provider] - Discharge Problem: Pneumonia Qualifiers: Pneumonia type: due to unspecified organism Laterality: left Lung location: lower lobe of lung Qualified Code(s): J18.9 - Pneumonia, unspecified organism
[2021-09-19 23:44] LABS: Basophils # (auto) 0.02 K/uL (0-0.2); Basophils % (auto) 0.2 %; Eosinophils # (auto) 0.08 K/uL (0-0.5); Eosinophils % (auto) 0.8 %; Hematocrit (blood only) 46.3 % (42-52); Hemoglobin 14.9 g/dL (14.0-18.0); Immature Granulocytes # (auto) 0.01 K/uL (0.00-0.02); Immature Granulocytes % (auto) 0.1 %; Lymphocytes # (auto) 0.52 K/uL (1.2-3.4); Lymphocytes % (auto) 5.2 %; Mean Corpuscular Hemoglobin 29.2 pg (25-34); Mean Corpuscular Hgb Conc 32.2 g/dL (32-36); Mean Corpuscular Volume 90.8 fL (80-100); Mean Platelet Volume 8.9 fL (7.4-10.4); Monocytes # (auto) 0.33 K/uL (0.11-0.59); Monocytes % (auto) 3.3 %; Neutrophils # (auto) 9.03 K/uL (1.4-6.5); Neutrophils % (auto) 90.4 %; Platelet Count 163 K/uL (130-400); RDW Coefficient of Variation 15.1 % (11.5-14.5); RDW Standard Deviation 50.6 fL (36.4-46.3); White Blood Count 9.99 K/uL (4.8-10.8)
[2021-09-19 23:56] LABS: Partial Thromboplastin Ratio 0.9; Partial Thromboplastin Time 24.1 Seconds (21.0-31.0); Prothrombin Time 10.6 Seconds (9.0-12.0)
[2021-09-19] MEDS ORDERED: cefTRIAXone SODIUM 1,000 MG/50 ML BAG IV STA (23:58)
[2021-09-19] MEDS ORDERED: AZITHROMYCIN 500 MG in DEXTROSE 5% 250 ML IV STA (23:58)
[2021-09-20 00:06] LABS: Alanine Aminotransferase 11 U/L (7-52); Albumin Globulin Ratio 1.2 (0.9-2); Albumin Level 3.8 gm/dl (3.4-5.0); Anion Gap 7 (3-11); Aspartate Aminotransferase 19 U/L (13-39); BUN Creatinine Ratio 21.8 (10-20); Bilirubin,Total 0.4 mg/dl (0.2-1.0); Blood Urea Nitrogen 26 mg/dl (6-23); Calcium 10.3 mg/dl (8.5-10.1); Carbon Dioxide 23 mmol/L (21-32); Chloride 108 mmol/L (98-107); Est GFR (African American) 62.8 ml/min; Est GFR (Non-African American) 54.2 ml/min; Globulin 3.2 gm/dl (2.5-4.0); Glucose 109 mg/dl (70-99(Fasting)); Magnesium 1.7 mg/dl (1.7-2.4); Potassium 4.2 mmol/L (3.5-5.1); Sodium 138 mmol/L (136-145)
[2021-09-20 00:24] LABS: Appearance Urine Clear (Clear); Bilirubin Urine Negative (Negative); Blood Urine Negative (Negative); Color Urine Yellow; Glucose Urine UA Negative (Negative); Ketones Urine Negative (Negative); Leukocyte Esterase Urine Negative (Negative); Nitrite Urine Negative (Negative); Protein Urine Negative (Negative); Specific Gravity Urine 1.017 (1.000-1.030); Urobilinogen Urine Negative (Negative)
[2021-09-20 00:32] LABS: Influenza A virus by PCR Negative (Neg); Influenza B virus by PCR Negative (Neg); RSV by PCR Negative (Neg); SARS CoV2 RNA(COVID-19) InHosp NEGATIVE (Negative)
[2021-09-20 00:42] LABS: Alkaline Phosphatase 70 U/L (34-104)
--- NOTE | 2021-09-20 01:11 | History & Physical Report ---
Date of Service September 20, 2021 Assessment & Plan (1) Acute hypoxemic respiratory failure: Plan: 86 y/o M w/ PMHx of COPD, CKD3, HTN who presents w/ most likely a COPD exacerbation 2/2 pneumonia. Acute respiratory failure with hypoxia 2/2 the above - stable, saturating low 90s on 4L - febrile, Tmax 38.4C. slight tachypnea - cxr w/ new LLL airspace opacity c/w pneumonia - methylpred 60 mg IV x1. followed by 20 mg q8 - scheduled duoneb q4h - prn albuterol - Mucinex - Flutter valve - check procalc - continue IV Rocephin and Zithromax for CAP, not covering for pseudomonas. WBC borderline. - O2 goal >90% (2) COPD with emphysema: Plan: - see above (3) Pneumonia: Plan: - see above (4) CKD (chronic kidney disease), stage III: Plan: - Cr at baseline ~1.2s. Follow daily metabolic panel. (5) Hx of syncope: Plan: - Per outpatient cardiology, on beta juanita for long hx of syncope. Also for no nsustained SVT. Dose decreaed recently for suspected chronotropic incompetence. (6) Hypertension: Plan: - Slightly soft BPs. Septic-like presentation, so provided 500mL NSS bolus. Hold home BP meds. (7) BPH w urinary obs/LUTS: Plan: - continue home regimen (8) AAA (abdominal aortic aneurysm): Plan: - Had repair in year ~1999 Plan: Low Na diet. No IV fluids Ppx: SQ Lovenox Full code Med/surg History of Present Illness Chief Complaint: dyspnea Primary Care Provider: Ignacio Alonzo MD 86 y/o M w/ PMHx of COPD, CKD3, HTN who presents w/ dyspnea and rigors since 830PM. He states that he felt at baseline prior to this. EMS noted 80s sat on 2L O2 (home O2 is qhs 2L and prn during day). Denies subj fever at home. Some red tinged sputum today. His sputum is chronically green/yellow. Denies hx VTE. Uses albuterol inhaler q2-3 days PRN, Duoneb qam and Trelegy daily. Currently, his breathing feels 75% better. Quit tobacco 20 years ago, 50+ pack year tobacco hx. No sick contact. Denies concerns for aspiration. ED course: IV Rocephin and Zithromax. Covid and flu tests were negative. Patient has had 3 doses of Moderna (w/o Booster) 11/2020. Allergies Allergy/AdvReac Type Severity Reaction Status Date / Time roflumilast [From [facility]] Allergy Intermediate rash Verified 09/19/21 23:18 Home Medications Medication Instructions Recorded Confirmed Type omega-3 acid ethyl esters 1 gram 1 cap PO QAM cap 05/17/19 09/19/21 History capsule aspirin 81 mg tablet,delayed 81 mg PO QAM 06/25/19 09/19/21 History release (Aspirin Low Dose) guaifenesin 600 mg tablet, 600 mg PO BID #180 tab 12/12/19 09/19/21 Rx extended release 12 hr (Mucinex) green tea leaf extract 250 mg 500 mg PO QAM 01/18/20 09/19/21 History capsule (Green Tea) qcqrysuk-fqx-bdlkn acid 300 1 tab PO QAM 01/18/20 09/19/21 History mcg-lycopene 600 mcg-lutein 300 mcg tablet (Centrum Silver Ultra Men's) saw palmetto fruit extract-zinc 3 cap PO QAM 01/18/20 09/19/21 History picolinate 160 mg-15 mg capsule (Saw [place]ty Extract (with zinc)) nebulizers #1 ea 07/08/20 09/16/21 Rx glucosamine-chondroitin 250 mg-200 2 tab PO QAM tab 11/11/20 09/19/21 History mg tablet (Osteo Bi-Flex) hydrochlorothiazide 12.5 mg tablet 12.5 mg PO QAM #90 tab 01/01/21 09/19/21 Rx ipratropium 0.5 mg-albuterol 3 mg 3 ml INHALATION Q8H PRN #180 ml 02/26/21 09/19/21 Rx (2.5 mg base)/3 mL nebulization soln Flutter Valve #1 ea 03/10/21 09/16/21 Rx sodium chloride 7 % for 4 ml INHALATION BID 04/23/21 09/19/21 History nebulization finasteride 5 mg tablet 5 mg PO DAILY #90 tab 06/30/21 09/19/21 Rx albuterol sulfate 90 mcg/actuation 2 puff INHALATION Q6H PRN #1 07/27/21 09/19/21 Rx aerosol inhaler (ProAir HFA) inhaler metoprolol succinate 50 mg 50 mg PO DAILY #90 tab 08/31/21 09/19/21 Rx tablet,extended release 24 hr amlodipine 2.5 mg tablet 2.5 mg PO DAILY 09/01/21 09/19/21 History fluticasone fur. 100 mcg-umeclid 1 inh INHALATION DAILY #3 inhaler 09/16/21 09/19/21 Rx 62.5 mcg-vilant 25 mcg inhalat.powder (Trelegy Ellipta) Past Med/Surg History Medical History AAA (abdominal aortic aneurysm) Aorto-iliac disease Chest pain Chronic cough Chronic obstructive pulmonary disease follows [facility]ov[facility] Borja. rarely uses rescue inh CKD (chronic kidney disease), stage III COPD (chronic obstructive pulmonary disease) Glaucoma of both eyes HTN (hypertension) Hyperlipidemia Hypertension NSVT (nonsustained ventricular tachycardia) pt unaware of this Osteoarthritis Sinus bradycardia Solitary pulmonary nodule follows [facility] Surgical History H/O aortic aneurysm repair Oct 1999- suzy romero / follows Dr. Olivares [facility] History of AAA (abdominal aortic aneurysm) repair History of back surgery History of cataract surgery LEFT History of colonoscopy History of herniorrhaphy History of lumbar laminectomy Inguinal hernia Family History Brother Hypertension Osteoarthritis Unknown Cancer Other Emphysema of lung Denies family history of Myocardial infarction Stroke Social History (Updated 09/20/21 @ 02:54 by Jorge Greenberg MD) Smoking Status: Former smoker Tobacco Type: Cigarettes packs per day: 1; Years Smoked: 50; Cigarettes Per Day: 20; Second Hand Exposure: No; Hx Alcohol Use: Yes Alcohol type: hard liquor Alcohol Intake Frequency Comment: 2 vodka cranberry drinks maybe 3-4 days a week Hx Substance Use: No Preferred Language: Guatemalan Communication Ability: Effective Visual Impairment: Limited Hearing Ability: Normal Texture Artist Required: Yes Beliefs That Will Affect Care: None marital status: Current Living Situation: Spouse Current Living Situation Comment: Lives independently at home with current occupational status: retired Feels Safe at Home: Yes caffeine: Yes Dental Care, Regularly: No Physical Activity Frequency: Does not Exercise Seatbelt Use: always Sunscreen Use: Yes Assistive Devices: Oxygen - at Night Review of Systems Review of Systems: All systems reviewed & are unremarkable except as noted in HPI & below Constitutional: Denies fever, chills ENT: Denies sore throat, ear pain Cardiovascular: Denies chest pain, palpitations Respiratory: See HPI. Denies current dyspnea while on 4L O2 Gastrointestinal: Denies abdominal pain, nausea, vomiting, constipation, diarrhea Genitourinary: Denies urinary symptoms including dysuria Musculoskeletal: Denies weakness, muscle aches/pain, joint aches/pain Neurological: Denies headache, numbness, tingling, focal weakness Physical Exam Physical Exam: General: Grossly A&O. NAD. Cooperative. HEENT: Atraumatic, normocephalic. EOMI. PERRL. Oropharynx wnl. Pulm: Loud breathing; transmitted upper airway sounds at neck, raspy on exhale. Wet sounding cough. Mildly diminished lungs. Exp mild rhonchi. Cardiac: RRR, -mrg. Radial pulses intact and symmetrical. No LE edema. Abdominal: Nontender, nondistended, soft. Integ: Warm, dry, intact. Neuro: CN II-XII intact. Normal strength and sensation of extremities. Results & Data Results & Data ([facility]) Vital Signs (Past 12 Hours) Vital Signs Fever noted. Temp Pulse Resp BP Pulse Ox 09/20/21 00:46 38.1 C H 09/20/21 00:45 80 24 108/54 L 94 09/20/21 00:30 82 27 H 111/56 L 96 09/20/21 00:16 92 H 28 H 106/65 95 09/20/21 00:00 87 27 H 125/63 93 09/19/21 23:45 82 26 H 92 09/19/21 23:43 93 09/19/21 23:37 38.4 C H 89 22 159/70 H 91 09/19/21 23:30 91 H 31 H 94 Laboratory Results 09/19/21 23:30 09/19/21 23:30 Cardiac Enzymes 09/19/21 Range/Units 23:30 AST 19 (13-39) U/L Coagulation 09/19/21 Range/Units 23:30 PT 10.6 (9.0-12.0) Seconds APTT 24.1 (21.0-31.0) Seconds CBC 09/19/21 Range/Units 23:30 WBC 9.99 (4.8-10.8) K/uL RBC 5.10 (4.7-6.1) M/uL Hgb 14.9 (14.0-18.0) g/dL Hct 46.3 (42-52) % Plt Count 163 (130-400) K/uL Neut # (Auto) 9.03 H (1.4-6.5) K/uL Lymph # (Auto) 0.52 L (1.2-3.4) K/uL Swain # (Auto) 0.33 (0.11-0.59) K/uL Eos # (Auto) 0.08 (0-0.5) K/uL Baso # (Auto) 0.02 (0-0.2) K/uL Comprehensive Metabolic Panel 09/19/21 Range/Units 23:30 Sodium 138 (136-145) mmol/L Potassium 4.2 (3.5-5.1) mmol/L Chloride 108 H (98-107) mmol/L Carbon Dioxide 23 (21-32) mmol/L BUN 26 H (6-23) mg/dl Creatinine 1.19 (0.6-1.4) mg/dl Glucose 109 H (70-99(Fasting)) mg/dl Calcium 10.3 H (8.5-10.1) mg/dl AST 19 (13-39) U/L ALT 11 (7-52) U/L Alkaline Phosphatase 70 (34-104) U/L Total Protein 7.0 (6.0-8.3) gm/dl Albumin 3.8 (3.4-5.0) gm/dl Intake and Output 09/19/21 09/19/21 09/20/21 14:59 22:59 06:59 Intake Total 50 / 50 Output Total 150 / 150 Balance -100 / -100 Intake: IV 50 / 50 cefTRIAXone SODIUM 1,000 mg In 50 / 50 50 ml @ 100 mls/hr IV NOW STA Rx#:[id number] Oral 0 / 0 Output: Urine 150 / 150 Other: Weight 70.4 kg Weight Measurement Method Built in [facility] Patient Weight 09/20/21 06:59 Weight 70.4 kg Diagnostic Findings CXR per my interpretation: new left lower lobe airspace opacity compared to 04/2021 CXR. ECG Additional Comments: Per my read: NSR 87. Normal intervals. Normal axis. Nonspecific ST-T changes. Code Status & VTE Plan Code Status full VTE Prophylaxis Plan VTE Prophylaxis will be ordered: Yes Supervising Physician Co-Signing Physician Notes Patient seen and examined, chart reviewed, case discussed with Dr. Greenberg and I agree with the assessment and plan as above 86yo male with COPD presenting with productive cough, fever, SOB Patient uses 2L O2 qHS and PRN Exam significant for fever, borderline low BP, 91% saturation on 4L HEENT - NC/AT, PERRL Heart - +S1/S2, regular Lungs - +rhonchi, crackles at left base, diffuse end-expiratory wheezing Abd - +BS, soft, NT/ND Ext - no edema Labs and images reviewed Assessment/Plan - CAP with COPD exacerbation -Nebs, steroids, flutter valve, Mucinex -Antibiotics for CAP - Ceftriaxone and Azithro -Hold home BP meds -Remainder as above Resident Activity Tracking Resident Involvement: Resident Care Provided Care Provided: Adult Hospital Medicine (1) Hypertension Hypertension type: primary hypertension Qualified Code(s): I10 - Essential (primary) hypertension (2) Pneumonia Laterality: left Lung location: lower lobe of lung Pneumonia type: due to unspecified organism Qualified Code(s): J18.9 - Pneumonia, unspecified organism
[2021-09-20] MEDS ORDERED: SODIUM CHLORIDE 0.9% 1000ML 500 ML IV STA (03:49)
[2021-09-20] MEDS ORDERED: methylPREDNISolone 125 MG/2 ML VIAL IV STA (03:52)
--- NOTE | 2021-09-20 04:30 | Billing Data ---
Date of Service September 20, 2021 Coding Level of Care Code INT OBSERVATION CARE 68M LVL 3
[2021-09-20] MEDS ORDERED: ONDANSETRON INJ 2 MG/ML 2 ML VIAL ONE (04:43)
[2021-09-20] MEDS ORDERED: ALBUTEROL 0.083% NEBU SOLN 3 ML VIAL NEB PRN (05:28)
[2021-09-20] MEDS ORDERED: ONDANSETRON INJ 2 MG/ML 2 ML VIAL IV PRN (05:28)
[2021-09-20] MEDS ORDERED: ACETAMINOPHEN 325 MG TAB PO PRN (05:28)
[2021-09-20] MEDS ORDERED: POLYETHYLENE (MIRALAX) 17 GM PACK PO PRN (05:28)
[2021-09-20] MEDS: ALBUT/IPRATROP 3MG/0.5MG NEB 3 ML VIAL NEB SCH ×4 (07:00→20:48)
--- NOTE | 2021-09-20 07:07 | XRay Report ---
XR chest 1V portable HISTORY: SEPSIS COMPARISON: Chest 04/23/2021. FINDINGS: Emphysema. No pneumothorax. The heart remains mildly enlarged. Old, healed left-sided rib f ractures are again noted. Calcified granuloma within the left midlung zone. Bibasilar airspace opacit ies most pronounced on the left. No pleural effusions. No evidence for pulmonary edema. IMPRESSION: 1. Bibasilar airspace opacities most pronounced on the left. This likely represents a pneumonia and c ould be secondary to aspiration or a viral process. 2. Emphysema. ACT 112: Negative or not required by law. Electronically signed by: Des Ware M.D. 09/20/2021 7:06 AM
[2021-09-20] MEDS: ENOXAPARIN INJ 40 MG/0.4 ML SYR SQ SCH (08:47)
[2021-09-20] MEDS: METOPROLOL SUCC 50MG EXT REL TAB PO SCH (08:47)
[2021-09-20] MEDS: FINASTERIDE 5 MG TAB PO SCH (08:47)
[2021-09-20] MEDS: ASPIRIN 81 MG ECTAB PO SCH (08:47)
[2021-09-20] MEDS: guaiFENesin 600 MG TABCR PO SCH ×2 (08:48→20:28)
--- NOTE | 2021-09-20 08:49 | Electrocardiogram Report ---
Test Reason : Blood Pressure : / mmHG Vent. Rate : 087 BPM Atrial Rate : 087 BPM P-R Int : 178 ms QRS Dur : 080 ms QT Int : 342 ms P-R-T Axes : 023 -14 050 degrees QTc Int : 411 ms Normal sinus rhythm Incomplete right bundle branch block Borderline ECG When compared with ECG of 23-APR-2021 10:30, Vent. rate has increased BY 34 BPM Confirmed by Juan R Tapia ([id number]) on 09/20/2021 8:48:42 AM Referred By: REFERRED SELF Confirmed By:Juan R Tapia
[2021-09-20] MEDS ORDERED: NON-FORMULARY MEDICATION (Fluticasone-Umeclidin-Vilanter [Trelegy Ellipta] 100-62.5-25 mcg INH SCH (09:30)
[2021-09-20] MEDS: UMECLIDINIUM/VILANTEROL 62.5/25MCG 7 PUFFS/INHALER INH SCH (09:56)
[2021-09-20] MEDS: FLUTICASONE FUROATE 100MCG 14 PUFFS/INHALER INH SCH (09:56)
--- NOTE | 2021-09-20 11:33 | Hospitalist Progress Note ---
Date of Service September 20, 2021 Assessment & Plan (1) Acute hypoxemic respiratory failure: Plan: 86 y/o M w/ PMHx of COPD, CKD3, HTN who presents w/ most likely a COPD exacerbation 2/2 pneumonia. Acute respiratory failure with hypoxia 2/2 the above - stable, saturating low 90s on 4L - febrile, Tmax 38.4C. slight tachypnea - cxr w/ new LLL airspace opacity c/w pneumonia - methylpred 60 mg IV x1. followed by 20 mg q8, switch to prednisone 40mg PO tomorrow - scheduled duoneb QID - prn albuterol - Mucinex - Flutter valve - check procalc - continue IV Rocephin and Zithromax for CAP, not covering for pseudomonas. WBC borderline. - O2 goal >90% - 2 step in AM (2) COPD with emphysema: Plan: - see above Continue his routine maintenance inhaler (3) Pneumonia: Plan: - see above (4) CKD (chronic kidney disease), stage III: Plan: - Cr at baseline ~1.2 (5) Hx of syncope: Plan: - Per outpatient cardiology, on beta juanita for long hx of syncope. Also for nonsustained SVT. Dose decreased recently for suspected chronotropic incompetence. (6) Hypertension: Plan: - Slightly soft BPs. Septic-like presentation, so provided 500mL NSS bolus. Continue metoprolol succinate 50mg PO daily, holding HCTZ and amlodipine (7) BPH w urinary obs/LUTS: Plan: - continue home regimen (8) AAA (abdominal aortic aneurysm): Plan: - Had repair in year ~1999 Plan: Diet - Low Na diet. No further IV fluids VTE Prophylaxis - Code status - Full Disposition - continued inpatient stay on Med/surg due to hypoxia Admission and Anticipated Discharge Date Admission Date: September 20, 2021 Anticipated date of discharge: 09/21/21 Subjective Still requiring 2LPM O2 today however he reports shortness of breath improving. He has not been out of bed much. Lives with his who he reports is in good health. Review of Systems Review of Systems: All systems reviewed & are unremarkable except as noted in HPI & below Physical Exam Constitutional: WD/WN, vitals as above ENMT: Mouth: oral mucous membranes not dry Neck: trachea midline, no thyromegaly Respiratory: normal respiratory effort Auscultation: + rhonchi (bibasal); no wheezes Cardiovascular: RRR, no murmur, no edema Gastrointestinal (Abdomen): normal bowel sounds, soft, nontender, no hepatosplenomegaly Percussion/Palpation: abdomen soft; abdomen nontender Skin: no rashes, warm and dry Neurologic: moves all extremities and awake; not confused Psychiatric: A+Ox3, euthymic affect Results & Data Results & Data ([facility]) Vital Signs (Past 12 Hours) Vital Signs Temp Pulse Pulse Resp BP BP Pulse Ox 09/20/21 10:00 67 20 127/54 L 94 09/20/21 09:00 75 20 130/69 92 09/20/21 08:00 63 18 132/50 L 94 09/20/21 07:00 61 21 94 09/20/21 06:55 60 18 100/41 L 94 09/20/21 05:33 09/20/21 05:32 57 L 17 118/44 L 95 09/20/21 04:46 67 25 H 118/64 92 09/20/21 04:45 72 25 H 94 09/20/21 04:30 62 21 92/41 L 90 09/20/21 04:00 65 24 88/41 L 90 09/20/21 03:45 68 26 H 97/41 L 94 09/20/21 03:30 79 25 H 98/54 L 93 09/20/21 03:15 71 18 99/51 L 95 09/20/21 03:00 73 24 90/44 L 95 09/20/21 02:47 72 24 117/58 L 94 09/20/21 02:30 75 34 H 108/59 L 94 09/20/21 02:15 76 27 H 115/61 96 09/20/21 02:00 74 21 99/49 L 94 09/20/21 01:45 75 27 H 108/48 L 91 09/20/21 01:31 78 20 100/50 L 92 09/20/21 01:30 76 26 H 92 09/20/21 01:15 74 24 98/47 L 95 09/20/21 01:01 124/61 09/20/21 01:00 84 24 95 09/20/21 00:46 38.1 C H 09/20/21 00:45 80 24 108/54 L 94 09/20/21 00:30 82 27 H 111/56 L 96 09/20/21 00:16 92 H 28 H 106/65 95 09/20/21 00:00 87 27 H 125/63 93 09/19/21 23:45 82 26 H 92 09/19/21 23:43 93 09/19/21 23:37 38.4 C H 89 22 159/70 H 91 Pulse Ox 09/20/21 10:00 09/20/21 09:00 09/20/21 08:00 09/20/21 07:00 09/20/21 06:55 09/20/21 05:33 95 09/20/21 05:32 09/20/21 04:46 09/20/21 04:45 09/20/21 04:30 09/20/21 04:00 09/20/21 03:45 09/20/21 03:30 09/20/21 03:15 09/20/21 03:00 09/20/21 02:47 09/20/21 02:30 09/20/21 02:15 09/20/21 02:00 09/20/21 01:45 09/20/21 01:31 09/20/21 01:30 09/20/21 01:15 09/20/21 01:01 09/20/21 01:00 09/20/21 00:46 09/20/21 00:45 09/20/21 00:30 09/20/21 00:16 09/20/21 00:00 09/19/21 23:45 09/19/21 23:43 09/19/21 23:37 PG Care Time/CCT Total # of Minutes Spent Total Time Spent with Patient: Total time spent is greater than 50% in coordination of care (as documented) at patient's floor/unit and/or counseling patient: Coding Level of Care Code None Diagnoses Acute hypoxemic respiratory failure J96.01 COPD with emphysema J43.9 Pneumonia J18.9 Laterality: left Lung location: lower lobe of lung Pneumonia type: due to unspecified organism CKD (chronic kidney disease), stage III N18.30 Hx of syncope Z87.898 Hypertension I10 Hypertension type: primary hypertension BPH w urinary obs/LUTS N40.1; N13.8 AAA (abdominal aortic aneurysm) I71.4 Comment Patient was admitted to the same day (1) Hypertension Hypertension type: primary hypertension Qualified Code(s): I10 - Essential (primary) hypertension (2) Pneumonia Laterality: left Lung location: lower lobe of lung Pneumonia type: due to un specified organism Qualified Code(s): J18.9 - Pneumonia, unspecified organism
[2021-09-20] MEDS ORDERED: methylPREDNISolone 20 MG in SYRINGE 0 ML IV SCH (16:00)
[2021-09-21 01:02] VITALS: TEMP 97.9
[2021-09-21 05:34] LABS: Hematocrit (blood only) 38.8 % (42-52); Hemoglobin 12.3 g/dL (14.0-18.0); Immature Granulocytes # (auto) 0.04 K/uL (0.00-0.02); Immature Granulocytes % (auto) 0.2 %; Lymphocytes # (auto) 1.22 K/uL (1.2-3.4); Lymphocytes % (auto) 6.1 %; Mean Corpuscular Hemoglobin 28.7 pg (25-34); Mean Corpuscular Hgb Conc 31.7 g/dL (32-36); Mean Corpuscular Volume 90.7 fL (80-100); Mean Platelet Volume 9.2 fL (7.4-10.4); Monocytes # (auto) 0.69 K/uL (0.11-0.59); Monocytes % (auto) 3.4 %; Neutrophils # (auto) 18.16 K/uL (1.4-6.5); Neutrophils % (auto) 90.3 %; Platelet Count 142 K/uL (130-400); RDW Coefficient of Variation 15.3 % (11.5-14.5); RDW Standard Deviation 50.7 fL (36.4-46.3); Red Blood Count 4.28 M/uL (4.7-6.1); White Blood Count 20.11 K/uL (4.8-10.8)
[2021-09-21 05:57] LABS: BUN Creatinine Ratio 21.5 (10-20); Calcium 9.4 mg/dl (8.5-10.1); Creatinine Clr Calc Pharmacy 31.2 ml/min; Est GFR (Non-African American) 37.1 ml/min; Potassium 4.5 mmol/L (3.5-5.1)
[2021-09-21] MEDS ORDERED: AZITHROMYCIN 500 MG in DEXTROSE 5% 250 ML IV SCH (06:00)
[2021-09-21 07:21] VITALS: BP 120/57
[2021-09-21] MEDS: ALBUT/IPRATROP 3MG/0.5MG NEB 3 ML VIAL NEB SCH ×3 (07:54→14:53)
[2021-09-21] MEDS ORDERED: cefTRIAXone SODIUM 1,000 MG in DEXTROSE 5% 50 ML IV SCH (08:00)
[2021-09-21] MEDS ORDERED: predniSONE 20 MG TAB PO SCH (09:00)
[2021-09-21] MEDS: ENOXAPARIN INJ 40 MG/0.4 ML SYR SQ SCH (09:38)
[2021-09-21] MEDS: METOPROLOL SUCC 50MG EXT REL TAB PO SCH (09:39)
[2021-09-21] MEDS: guaiFENesin 600 MG TABCR PO SCH (09:39)
[2021-09-21] MEDS: ASPIRIN 81 MG ECTAB PO SCH (09:39)
[2021-09-21] MEDS: FINASTERIDE 5 MG TAB PO SCH (09:39)
[2021-09-21] MEDS: UMECLIDINIUM/VILANTEROL 62.5/25MCG 7 PUFFS/INHALER INH SCH (09:40)
[2021-09-21] MEDS: FLUTICASONE FUROATE 100MCG 14 PUFFS/INHALER INH SCH (09:40)
--- NOTE | 2021-09-21 13:21 | Discharge Summary ---
Date of Service September 21, 2021 Admission HPI Per Admitting Provider 86 y/o M w/ PMHx of COPD, CKD3, HTN who presents w/ dyspnea and rigors since 830PM. He states that he felt at baseline prior to this. EMS noted 80s sat on 2L O2 (home O2 is qhs 2L and prn during day). Denies subj fever at home. Some red tinged sputum today. His sputum is chronically green/yellow. Denies hx VTE. Uses albuterol inhaler q2-3 days PRN, Duoneb qam and Trelegy daily. Currently, his breathing feels 75% better. Quit tobacco 20 years ago, 50+ pack year tobacco hx. No sick contact. Denies concerns for aspiration. ED course: IV Rocephin and Zithromax. Covid and flu tests were negative. Patient has had 3 doses of Moderna (w/o Booster) 11/2020. Discharge Data Allergies Allergy/AdvReac Type Severity Reaction Status Date / Time roflumilast [From [facility]] Allergy Intermediate rash Verified 09/19/21 23:18 Consultations 09/20/21 00:56 ED Decision to Admit Stat Hospital Course (1) Acute hypoxemic respiratory failure: 86 y/o M w/ PMHx of COPD, CKD3, HTN who presents w/ most likely a COPD exacerbation 2/2 pneumonia. Acute respiratory failure with hypoxia 2/2 the above - stable, saturating low 90s on 4L - febrile, Tmax 38.4C. slight tachypnea - cxr w/ new LLL airspace opacity c/w pneumonia - methylpred 60 mg IV x1. followed by 20 mg q8, switch to prednisone 40mg PO tomorrow - scheduled duoneb QID - prn albuterol - Mucinex - Flutter valve - check procalc - continue IV Rocephin and Zithromax for CAP, not covering for pseudomonas. WBC borderline. - O2 goal >90% - 2 step in AM (2) COPD with emphysema: - see above Continue his routine maintenance inhaler (3) Pneumonia: - see above (4) CKD (chronic kidney disease), stage III: - Cr at baseline ~1.2 (5) Hx of syncope: - Per outpatient cardiology, on beta juanita for long hx of syncope. Also for nonsustained SVT. Dose decreased recently for suspected chronotropic incompetence. (6) Hypertension: - Slightly soft BPs. Septic-like presentation, so provided 500mL NSS bolus. Continue metoprolol succinate 50mg PO daily, holding HCTZ and amlodipine (7) BPH w urinary obs/LUTS: - continue home regimen (8) AAA (abdominal aortic aneurysm): - Had repair in year ~1999 Diet - Low Na diet. No further IV fluids VTE Prophylaxis - Code status - Full Disposition - continued inpatient stay on Med/surg due to hypoxia Discharge Plan Discharge Items Patient Disposition: Home - Self-Care Reason For Visit: COPD EXACERBATION, PNEUMONIA Discharge Diagnosis: COPD exacerbation, Pneumonia Activity: Resume your previous activity Non-emergency contact: Primary Care Provider Call non-emergency contact if: you have any medication questions and your symptoms worsen Follow-up/Referrals: Ignacio Alonzo MD [Primary Care Provider] - (1-2 weeks with repeat BMP) Diet: Low Potassium (2gm) and Low Sodium (2gm) Addtl Attending Provider Instructions: You were admitted at [facility] from September 20 to 2021 with shortness of breath. He was diagnosed with bacterial pneumonia and COPD exacerbation. This was treated with intravenous antibiotics, steroids and nebulizers. You are still requiring a small amount of oxygen on exertion only; recommend using 2LPM O2 on exertion until follow-up with your primary care physician or fuse cutter. Continue to use oxygen at night per previous recommendations. Please continue full course of antibiotics and steroids as prescribed. Discharge your creatinine (kidney function test) was elevated above baseline therefore recommend repeating this in approximately 1 week with your primary care provider. You also noted to have a low blood pressure in the setting of pneumonia above. Recommend continuing to hold your amlodipine and hydrochlorothiazide as these have been held during your hospital admission. Pending Studies at Discharge: No Stand-Alone Forms: My [employer], Smoking Cessation Medications and DC Order Prescriptions: New prednisone 20 mg Tablet 40 mg PO QAM 3 Days Qty: 6 RF: 0 amoxicillin-pot clavulanate [Augmentin] 875-125 mg tablet 1 tab PO BID 9 Days Qty: 18 RF: 0 azithromycin 500 mg tablet 500 mg PO DAILY 1 Days Qty: 1 RF: 0 Continued guaifenesin [Mucinex] 600 mg tablet extended release 12hr 600 mg PO BID Qty: 180 RF: 1 finasteride 5 mg tablet 5 mg PO DAILY Qty: 90 RF: 3 albuterol sulfate [ProAir HFA] 90 mcg/actuation HFA aerosol inhaler 2 puff inhalation Q6H PRN (Reason: Shortness Of Breath) Qty: 1 RF: 5 glucosamine-chondroitin [Osteo Bi-Flex] 250-200 mg tablet 2 tab PO QAM RF: 0 (DME) Flutter Valve Device See Rx Instructions .MEDSUPPLY Qty: 1 RF: 0 ipratropium-albuterol 0.5 mg-3 mg(2.5 mg base)/3 mL solution for nebulization 3 ml inhalation Q8H PRN (Reason: shortness of breath or wheezing) Qty: 180 RF: 2 Trelegy Ellipta 100-62.5-25 mcg blister with device 1 inh inhalation DAILY Qty: 3 RF: 1 metoprolol succinate 50 mg tablet extended release 24 hr 50 mg PO DAILY Qty: 90 RF: 3 omega-3 acid ethyl esters 1 gram capsule 1 cap PO QAM RF: 0 (DME) nebulizers Misc See Rx Instructions miscellaneous .MEDSUPPLY Qty: 1 RF: 0 Saw [place] Extract (w-zinc) 160-15 mg Capsule 3 cap PO QAM RF: 0 green tea leaf extract [Green Tea] 250 mg Capsule 500 mg PO QAM RF: 0 Centrum Silver Ultra Men's 300-600-300 mcg Tablet 1 tab PO QAM RF: 0 aspirin [Aspirin Low Dose] 81 mg Tablet,Delayed Release (Dr/Ec) 81 mg PO QAM RF: 0 sodium chloride 7 % solution for nebulization 4 ml INHALATION BID RF: 0 Discontinued hydrochlorothiazide 12.5 mg tablet 12.5 mg PO QAM Qty: 90 RF: 3 amlodipine 2.5 mg tablet 2.5 mg PO DAILY RF: 0 Discharge Orders: Discharge Order (Routine); Ordered 09/21/21 Ordered By: Kory Marquez Admission Data Admit Date/Time: 09/20/21 03:50 Attending Provider: Kory Marquez Admit Provider: Jorge Greenberg Primary Care Provider: Ignacio Alonzo Other Providers: Micki Bonner Coding Diagnoses Acute hypoxemic respiratory failure J96.01 COPD with emphysema J43.9 Pneumonia J18.9 Laterality: left Lung location: lower lobe of lung Pneumonia type: due to unspecified organism CKD (chronic kidney disease), stage III N18.30 Hx of syncope Z87.898 Hypertension I10 Hypertension type: primary hypertension BPH w urinary obs/LUTS N40.1; N13.8 AAA (abdominal aortic aneurysm) I71.4
[2021-09-21 15:17] VITALS: PULSE 76; O2SAT 93
== END 2021-09-21 18:56 | disposition home or self-care (01) ==
LOC: EDINP 23:13 → ED 23:13 → SUATTDRO 09-20 03:50 → EDINP 09-20 23:00
DX: E78.5 Hyperlipidemia, unspecified; J44.9 Chronic obstructive pulmonary disease, unspecified; R91.8 Other nonspecific abnormal finding of lung field; I12.9 Hypertensive chronic kidney disease with stage 1 through stage 4 chronic kidney disease, or unspecified chronic kidney disease; J18.9 Pneumonia, unspecified organism; N18.30 Chronic kidney disease, stage 3 unspecified; I71.4 Abdominal aortic aneurysm, without rupture; Z88.8 Allergy status to other drugs, medicaments and biological substances; M19.90 Unspecified osteoarthritis, unspecified site; J43.9 Emphysema, unspecified; N13.8 Other obstructive and reflux uropathy; J96.01 Acute respiratory failure with hypoxia; Z87.891 Personal history of nicotine dependence; N40.1 Benign prostatic hyperplasia with lower urinary tract symptoms; Z79.899 Other long term (current) drug therapy; Z79.82 Long term (current) use of aspirin; Z79.1 Long term (current) use of non-steroidal anti-inflammatories (NSAID)

== ENCOUNTER 2022-10-19 13:16 | Inpatient (IN) ==
[2022-10-19] MEDS ORDERED: ACETAMINOPHEN 500 MG TAB PO STA (13:38)
[2022-10-19] MEDS ORDERED: ALBUT/IPRATROP 3MG/0.5MG NEB 3 ML VIAL NEB STA (13:42)
--- NOTE | 2022-10-19 13:44 | Emergency Department Note ---
Impression & Plan Hypoxia DC ED Provider Note HPI: The patient is an 87-year-old male with history of COPD, hypertension, hyperlipidemia, presents emergency department with a chief complaint of cough and chills. Patient states he has had the symptoms now for about the past 2 days. On arrival here to the ED the patient is saturating at 88% on his baseline 3 L nasal cannula oxygen, this was therefore increased with good improvement in his oxygenation to 93%. Patient does not exhibit any significant increased work of breathing on arrival, denies any chest pain, states that he told his son about his symptoms this morning and his son advised him to call 911 as opposed to waiting for his outpatient appointment. On arrival here to the ED otherwise the patient is hemodynamically stable, he does have a fever of 39.3 on arrival, blood pressure is 155/66. ROS: - Per HPI *Outpatient medications and allergy history reviewed. *Pertinent external medical records reviewed. PE: General: Alert HEENT: Normocephalic, trachea midline Eyes: Extraocular eye movement is intact, no scleral erythema Pulmonary: Diminished breath sounds bilaterally with mild expiratory wheezing Cardio: Regular rate and rhythm GI: Abdomen is soft, nontender : No suprapubic tenderness MSK: No evidence of trauma or malformation of the extremities, no edema Skin: No evidence of rash Neuro: Alert, no focal deficits Psychiatric: Cooperative event specialist: (As interpreted by myself): - An order was placed for continuous cardiac monitoring - Patient was noted to be in sinus rhythm with a rate of 90 EKG: (As interpreted by myself): Rate: 77 Rhythm: Sinus rhythm Intervals: Within normal limits ST changes: No ST elevation Time: 1403 Interventions provided in ED: -DuoNeb breathing treatment, IV ceftriaxone, IV doxycycline, heparin drip Medical Decision Making: Patient presented to the emergency department with cough and shortness of breath, he has a longstanding history of COPD, on arrival here to the ED the patient's oxygen saturation was 88% on his baseline nasal cannula oxygen therefore this was increased with good improvement in his oxygenation. IV was established, lab work obtained, patient was placed on director treasurer. Chest x-ray was obtained and shows evidence of bilateral pneumonia, EKG does not show any evidence of ST elevation, troponin resulted elevated at 1175, patient denies any chest pain, CT angiography of the chest was obtained that does not show any evidence of dissection or pulmonary embolism, there is evidence of bibasilar pneumonia in addition to suspicious appearing nodule in the right upper lung. Patient was treated for the pneumonia with ceftriaxone and doxycycline. On my reassessment he continues to state that he feels well, denies any chest pain, his oxygen is now stable on 5 L nasal cannula oxygen prior to admission. Patient was started on a heparin drip for what I suspect is demand ischemia in the underlying setting of pneumonia, low suspicion for ACS at this time given lack of chest pain. Case was discussed with the on-call hospitalist, Dr. Cunningham, and the patient was placed for admission in stable condition for further care. Consultants: Hospitalist service, Dr. Cunningham Disposition discussion held by myself with: Patient and at bedside * CRITICAL CARE TIME: (55) minutes -Stabilization of hypoxia with oxygen saturation at 88% on supplemental oxygen requiring increased flow for stabilization, initiation of heparin drip for elevated troponin in the setting of underlying pneumonia likely related to demand ischemia, time spent at the bedside, discussion with other physicians and arrangement of admission Diagnosis: 1. Bibasilar pneumonia 2. Hypoxia, acute 3. Elevated troponin level 4. Fever 5. Right upper lobe pulmonary nodule 6. Elevated procalcitonin level Disposition: Admission Damian Gan DO Emergency Medicine Past Med/Surg History Medical History (Updated 10/19/22 @ 17:39 by Ignacio Cunningham MD) AAA (abdominal aortic aneurysm) Aorto-iliac disease Chest pain Chronic cough Chronic obstructive pulmonary disease follows [facility]. rarely uses rescue inh CKD (chronic kidney disease), stage III COPD (chronic obstructive pulmonary disease) Glaucoma of both eyes HTN (hypertension) Hyperlipidemia Hypertension NSVT (nonsustained ventricular tachycardia) pt unaware of this Osteoarthritis Sinus bradycardia Solitary pulmonary nodule [place] [facility] [place] History (Updated 10/12/22 @ 13:21 by Morena Bailey, TORSTEN) H/O aortic aneurysm repair Oct 1999- suzy romero / [place] Dr. Olivares [facility] [place] History of AAA (abdominal aortic aneurysm) repair History of back surgery L4-L5 History of cataract surgery LEFT History of colonoscopy History of herniorrhaphy Right groin History of lumbar laminectomy Inguinal hernia Family History (Updated 10/12/22 @ 13:26 by Morena Bailey, TORSTEN) Brother Medical history unknown Mother , 96yo Natural with unknown cause Hypertension Father , in his 50s Emphysema lung Son No problems noted. Son No problems noted. Son No problems noted. Denies family history of Myocardial infarction Stroke Social History (Updated 10/12/22 @ 13:28 by Morena Bailey RN) Smoking Status: Former smoker Tobacco Type: Cigarettes packs per day: 1; Second Hand Exposure: No; Hx Alcohol Use: Yes Alcohol type: beer, wine and hard liquor Alcohol Intake Frequency Comment: 2 vodka cranberry drinks maybe 3-4 days a week Hx Substance Use: No Preferred Language: Mongolian Communication Ability: Effective Visual Impairment: No Limitations Hearing Ability: Normal Fire Boss Required: No Beliefs That Will Affect Care: None marital status: Current Living Situation: Spouse Current Living Situation Comment: Lives independently at home with current occupational status: retired How many Children do You have: 3 Feels Safe at Home: Yes caffeine: Yes (2 cups/day) during the past year weight has: decreased > 10 lbs Dental Care, Regularly: No Seatbelt Use: always Assistive Devices: Oxygen - at Night Allergies Allergies Allergy/AdvReac Type Severity Reaction Status Date / Time roflumilast [From [facility]] Allergy Intermediate rash Verified 10/19/22 15:03 Home Meds Home Medications Medication Instructions Recorded Confirmed omega-3 acid ethyl esters 1 gram 1 cap PO QAM 05/17/19 10/19/22 capsule aspirin 81 mg tablet,delayed 81 mg PO QAM 06/25/19 10/19/22 release (Pablo Low Dose Aspirin) green tea leaf extract 250 mg 500 mg PO QAM 01/18/20 10/19/22 capsule (Green Tea) prtalhsd-ezd-vyrhb acid 300 1 tab PO QAM 01/18/20 10/19/22 mcg-lycopene 600 mcg-lutein 300 mcg tablet (Centrum Silver Ultra Men's) glucosamine-chondroitin 250 mg-200 2 tab PO QAM 11/11/20 10/19/22 mg tablet (Osteo Bi-Flex) azithromycin 250 mg tablet 250 mg PO .Three times/week 10/12/22 10/19/22 ginkgo biloba leaf extract 60 mg 60 mg PO DAILY 10/12/22 10/19/22 capsule saw palmetto 450 mg capsule 450 mg PO BID 10/12/22 10/19/22 Previous Rx's Medication Instructions Recorded guaifenesin 600 mg tablet, 600 mg PO BID #180 tabs 12/12/19 extended release 12 hr (Mucinex) nebulizers #1 ea 07/08/20 Flutter Valve #1 ea 03/10/21 metoprolol succinate 50 mg 50 mg PO DAILY #90 tabs 08/31/21 tablet,extended release 24 hr albuterol sulfate 90 mcg/actuation 2 puff inhalation Q6H PRN 12/29/21 aerosol inhaler (ProAir HFA) Shortness Of Breath #3 Inhalers Portable Oxygen #1 ea 06/06/22 fluticasone fur. 100 mcg-umeclid 1 inh inhalation DAILY #3 Inhalers 06/13/22 62.5 mcg-vilant 25 mcg inhalat.powder (Trelegy Ellipta) finasteride 5 mg tablet 5 mg PO DAILY #90 tabs 08/05/22 ipratropium 0.5 mg-albuterol 3 mg 3 ml inhalation Q8H PRN shortness 09/12/22 (2.5 mg base)/3 mL nebulization of breath or wheezing #180 mL soln Flutter Valve #1 ea 09/16/22 sodium chloride 7 % for 4 ml inhalation BID #240 mL 10/17/22 nebulization Results & Data (ED) Vital Signs Vital Signs - 24 hr 10/19/22 13:25 10/19/22 13:57 10/19/22 13:37 Temperature 39.3 C H Temperature Source Oral Pulse Rate 80 82 Pulse Rate [Apical] Pulse Rate from SpO2 Sensor Pulse Rhythm [Apical] Pulse Strength [Apical] Respiratory Rate 26 H Respiratory Effort / Characteristics Non-Labored Respiratory Depth Normal Respiratory Pattern Regular Blood Pressure 155/66 H Blood Pressure [Left Arm] Blood Pressure Mean 95 Blood Pressure Mean [Left Arm] Pulse Oximetry 92 5 L Oxygen Delivery Method Nasal Cannula Nasal Cannula Oxygen Flow Rate 4 Sepsis Recent Fever Within 48 Hours Yes Sepsis New/Unexplained Change in Mental Status No Sepsis Action Taken by Nursing No Action Required 10/19/22 15:07 10/19/22 14:37 10/19/22 16:00 Temperature Temperature Source Pulse Rate Pulse Rate [Apical] 83 83 88 Pulse Rate from SpO2 Sensor Pulse Rhythm [Apical] Regular Regular Regular Pulse Strength [Apical] Normal Normal Normal Respiratory Rate 22 22 24 Respiratory Effort / Characteristics Non-Labored Non-Labored Non-Labored Respiratory Depth Normal Normal Normal Respiratory Pattern Regular Regular Regular Blood Pressure Blood Pressure [Left Arm] 155/66 H 126/52 L 134/72 Blood Pressure Mean Blood Pressure Mean [Left Arm] 95 76 92 Pulse Oximetry 94 93 94 Oxygen Delivery Method Nasal Cannula Nasal Cannula Nasal Cannula Oxygen Flow Rate 5 5 5 Sepsis Recent Fever Within 48 Hours Sepsis New/Unexplained Change in Mental Status Sepsis Action Taken by Nursing 10/19/22 13:25 10/19/22 13:37 10/19/22 16:15 Temperature Temperature Source Pulse Rate Pulse Rate [Apical] 98 H Pulse Rate from SpO2 Sensor Pulse Rhythm [Apical] Pulse Strength [Apical] Respiratory Rate 26 H 24 Respiratory Effort / Characteristics Non-Labored Non-Labored Respiratory Depth Normal Normal Respiratory Pattern Regular Regular Blood Pressure Blood Pressure [Left Arm] Blood Pressure Mean Blood Pressure Mean [Left Arm] Pulse Oximetry 88 L 89 L 94 Oxygen Delivery Method Nasal Cannula Nasal Cannula Nasal Cannula Oxygen Flow Rate 3 3 5 Sepsis Recent Fever Within 48 Hours Sepsis New/Unexplained Change in Mental Status Sepsis Action Taken by Nursing 10/19/22 16:45 10/19/22 13:53 10/19/22 14:00 Temperature Temperature Source Pulse Rate 81 82 Pulse Rate [Apical] Pulse Rate from SpO2 Sensor 82 81 Pulse Rhythm [Apical] Pulse Strength [Apical] Respiratory Rate 25 H 24 20 Respiratory Effort / Characteristics Respiratory Depth Respiratory Pattern Blood Pressure Blood Pressure [Left Arm] Blood Pressure Mean Blood Pressure Mean [Left Arm] Pulse Oximetry 94 89 L 92 Oxygen Delivery Method Nasal Cannula Oxygen Flow Rate 5 3 4 Sepsis Recent Fever Within 48 Hours Sepsis New/Unexplained Change in Mental Status Sepsis Action Taken by Nursing 10/19/22 14:15 10/19/22 14:30 10/19/22 14:36 Temperature Temperature Source Pulse Rate 81 91 H 90 Pulse Rate [Apical] Pulse Rate from SpO2 Sensor 82 88 Pulse Rhythm [Apical] Pulse Strength [Apical] Respiratory Rate 22 24 24 Respiratory Effort / Characteristics Respiratory Depth Respiratory Pattern Blood Pressure Blood Pressure [Left Arm] Blood Pressure Mean Blood Pressure Mean [Left Arm] Pulse Oximetry 92 93 Oxygen Delivery Method Oxygen Flow Rate 4 5 Sepsis Recent Fever Within 48 Hours Sepsis New/Unexplained Change in Mental Status Sepsis Action Taken by Nursing 10/19/22 14:36 10/19/22 14:45 10/19/22 15:00 Temperature Temperature Source Pulse Rate 84 Pulse Rate [Apical] Pulse Rate from SpO2 Sensor 79 Pulse Rhythm [Apical] Pulse Strength [Apical] Respiratory Rate 29 H Respiratory Effort / Characteristics Respiratory Depth Respiratory Pattern Blood Pressure 158/58 H 126/52 L Blood Pressure [Left Arm] Blood Pressure Mean 91 76 Blood Pressure Mean [Left Arm] Pulse Oximetry 92 Oxygen Delivery Method Oxygen Flow Rate Sepsis Recent Fever Within 48 Hours Sepsis New/Unexplained Change in Mental Status Sepsis Action Taken by Nursing 10/19/22 15:00 10/19/22 15:15 10/19/22 15:43 Temperature Temperature Source Pulse Rate 81 86 Pulse Rate [Apical] Pulse Rate from SpO2 Sensor 79 91 H Pulse Rhythm [Apical] Pulse Strength [Apical] Respiratory Rate 25 H 21 Respiratory Effort / Characteristics Respiratory Depth Respiratory Pattern Blood Pressure Blood Pressure [Left Arm] Blood Pressure Mean Blood Pressure Mean [Left Arm] Pulse Oximetry 95 97 Oxygen Delivery Method Oxygen Flow Rate Sepsis Recent Fever Within 48 Hours Sepsis New/Unexplained Change in Mental Status Sepsis Action Taken by Nursing 10/19/22 15:45 10/19/22 16:00 10/19/22 16:00 Temperature Temperature Source Pulse Rate Pulse Rate [Apical] Pulse Rate from SpO2 Sensor 87 87 Pulse Rhythm [Apical] Pulse Strength [Apical] Respiratory Rate Respiratory Effort / Characteristics Respiratory Depth Respiratory Pattern Blood Pressure 134/72 Blood Pressure [Left Arm] Blood Pressure Mean 92 Blood Pressure Mean [Left Arm] Pulse Oximetry 96 95 Oxygen Delivery Method Oxygen Flow Rate Sepsis Recent Fever Within 48 Hours Sepsis New/Unexplained Change in Mental Status Sepsis Action Taken by Nursing 10/19/22 16:15 10/19/22 16:30 10/19/22 16:30 Temperature Temperature Source Pulse Rate 91 H Pulse Rate [Apical] Pulse Rate from SpO2 Sensor 88 88 Pulse Rhythm [Apical] Pulse Strength [Apical] Respiratory Rate 29 H Respiratory Effort / Characteristics Respiratory Depth Respiratory Pattern Blood Pressure 132/64 Blood Pressure [Left Arm] Blood Pressure Mean 86 Blood Pressure Mean [Left Arm] Pulse Oximetry 94 94 Oxygen Delivery Method Oxygen Flow Rate Sepsis Recent Fever Within 48 Hours Sepsis New/Unexplained Change in Mental Status Sepsis Action Taken by Nursing 10/19/22 16:45 10/19/22 17:00 10/19/22 17:00 Temperature Temperature Source Pulse Rate 88 86 Pulse Rate [Apical] Pulse Rate from SpO2 Sensor 86 84 Pulse Rhythm [Apical] Pulse Strength [Apical] Respiratory Rate 31 H 22 Respiratory Effort / Characteristics Respiratory Depth Respiratory Pattern Blood Pressure 122/63 Blood Pressure [Left Arm] Blood Pressure Mean 82 Blood Pressure Mean [Left Arm] Pulse Oximetry 94 93 Oxygen Delivery Method Oxygen Flow Rate Sepsis Recent Fever Within 48 Hours Sepsis New/Unexplained Change in Mental Status Sepsis Action Taken by Nursing 10/19/22 17:15 10/19/22 17:30 10/19/22 17:30 Temperature Temperature Source Pulse Rate 82 82 Pulse Rate [Apical] Pulse Rate from SpO2 Sensor 83 81 Pulse Rhythm [Apical] Pulse Strength [Apical] Respiratory Rate 23 22 Respiratory Effort / Characteristics Respiratory Depth Respiratory Pattern Blood Pressure 122/52 L Blood Pressure [Left Arm] Blood Pressure Mean 75 Blood Pressure Mean [Left Arm] Pulse Oximetry 94 93 Oxygen Delivery Method Oxygen Flow Rate Sepsis Recent Fever Within 48 Hours Sepsis New/Unexplained Change in Mental Status Sepsis Action Taken by Nursing 10/19/22 17:58 10/19/22 18:39 Temperature 36.9 C Temperature Source Oral Pulse Rate 82 Pulse Rate [Apical] Pulse Rate from SpO2 Sensor Pulse Rhythm [Apical] Pulse Strength [Apical] Respiratory Rate Respiratory Effort / Characteristics Respiratory Depth Respiratory Pattern Blood Pressure Blood Pressure [Left Arm] Blood Pressure Mean Blood Pressure Mean [Left Arm] Pulse Oximetry Oxygen Delivery Method Oxygen Flow Rate Sepsis Recent Fever Within 48 Hours Sepsis New/Unexplained Change in Mental Status Sepsis Action Taken by Nursing Laboratory Data 10/19/22 13:45 10/19/22 13:45 Lab Results 10/19/22 10/19/22 10/19/22 Range/Units 13:45 13:45 13:45 WBC 10.14 (4.8-10.8) K/ul RBC 4.56 L (4.70-6.10) M/uL Hgb 12.4 L (14.0-18.0) g/dl Hct 39.7 L (42.0-52.0) % MCV 87.1 (80.0-100.0) fL MCH 27.2 (25.0-34.0) pg MCHC 31.2 L (32.0-36.0) g/dL RDW Std Deviation 50.0 H (36.4-46.3) fL RDW Coeff of Conchis 15.7 H (11.5-14.5) % Plt Count 207 (130-400) K/uL MPV 9.7 (9.4-12.4) fL Immature Gran % (Auto) 0.2 % Neut % (Auto) 92.4 % Lymph % (Auto) 3.6 % Lyon % (Auto) 3.3 % Eos % (Auto) 0.1 % Baso % (Auto) 0.4 % Neut # (Auto) 9.38 H (1.40-6.50) K/uL Lymph # (Auto) 0.36 L (1.2-3.4) K/uL Lyon # (Auto) 0.33 (0.11-0.59) K/uL Eos # (Auto) 0.01 (0-0.50) K/uL Baso # (Auto) 0.04 (0-0.2) K/uL Immature Gran # (Auto) 0.02 (0.01-0.20) K/uL PT 11.1 (9.0-12.0) Seconds INR 1.0 (0.9-1.1) VBG pH (7.36-7.41) VBG pCO2 (38-50) mmHg VBG pO2 mmHg VBG HCO3 mmol/L VBG O2 Saturation % VBG Base Excess mEq/L Sodium 138 (136-145) mmol/L Potassium 4.7 (3.5-5.1) mmol/L Chloride 105 (98-107) mmol/L Carbon Dioxide 28 (21-32) mmol/L Anion Gap 5 (3-11) BUN 29 H (6-23) mg/dl Creatinine 1.20 (0.6-1.4) mg/dl Est Cr Clr Drug Dosing 38.8 ml/min Est GFR ( Amer) 61.8 ml/min Est GFR (Non-Af Amer) 53.3 ml/min BUN/Creatinine Ratio 24.2 H (10-20) Glucose 94 (70-99(Fasting)) mg/dl Lactate (0.4-2.0) mmol/L Calcium 10.4 H (8.5-10.1) mg/dl Magnesium 1.8 (1.7-2.4) mg/dl Total Bilirubin 0.6 (0.2-1.0) mg/dl Direct Bilirubin 0.1 (0-0.2) mg/dl AST 24 (13-39) U/L ALT 10 (7-52) U/L Alkaline Phosphatase 73 (34-104) U/L Troponin I High Sens 1175.5 H* (0-20) pg/ml Total Protein 7.2 (6.0-8.3) gm/dl Albumin 3.8 (3.4-5.0) gm/dl Procalcitonin (0-0.5) ng/ml SARS-CoV-2 (PCR) (Negative) Influenza Type A (PCR) (Neg) Influenza Type B (PCR) (Neg) RSV (RT-PCR) (Neg) 10/19/22 10/19/22 10/19/22 Range/Units 13:45 13:45 13:54 WBC (4.8-10.8) K/ul RBC (4.70-6.10) M/uL Hgb (14.0-18.0) g/dl Hct (42.0-52.0) % MCV (80.0-100.0) fL MCH (25.0-34.0) pg MCHC (32.0-36.0) g/dL RDW Std Deviation (36.4-46.3) fL RDW Coeff of Conchis (11.5-14.5) % Plt Count (130-400) K/uL MPV (9.4-12.4) fL Immature Gran % (Auto) % Neut % (Auto) % Lymph % (Auto) % Lyon % (Auto) % Eos % (Auto) % Baso % (Auto) % Neut # (Auto) (1.40-6.50) K/uL Lymph # (Auto) (1.2-3.4) K/uL Lyon # (Auto) (0.11-0.59) K/uL Eos # (Auto) (0-0.50) K/uL Baso # (Auto) (0-0.2) K/uL Immature Gran # (Auto) (0.01-0.20) K/uL PT (9.0-12.0) Seconds INR (0.9-1.1) VBG pH (7.36-7.41) VBG pCO2 (38-50) mmHg VBG pO2 mmHg VBG HCO3 mmol/L VBG O2 Saturation % VBG Base Excess mEq/L Sodium (136-145) mmol/L Potassium (3.5-5.1) mmol/L Chloride (98-107) mmol/L Carbon Dioxide (21-32) mmol/L Anion Gap (3-11) BUN (6-23) mg/dl Creatinine (0.6-1.4) mg/dl Est Cr Clr Drug Dosing ml/min Est GFR ( Amer) ml/min Est GFR (Non-Af Amer) ml/min BUN/Creatinine Ratio (10-20) Glucose (70-99(Fasting)) mg/dl Lactate 1.9 (0.4-2.0) mmol/L Calcium (8.5-10.1) mg/dl Magnesium (1.7-2.4) mg/dl Total Bilirubin (0.2-1.0) mg/dl Direct Bilirubin (0-0.2) mg/dl AST (13-39) U/L ALT (7-52) U/L Alkaline Phosphatase (34-104) U/L Troponin I High Sens (0-20) pg/ml Total Protein (6.0-8.3) gm/dl Albumin (3.4-5.0) gm/dl Procalcitonin 1.40 H (0-0.5) ng/ml SARS-CoV-2 (PCR) NEGATIVE (Negative) Influenza Type A (PCR) Negative (Neg) Influenza Type B (PCR) Negative (Neg) RSV (RT-PCR) Negative (Neg) 10/19/22 10/19/22 Range/Units 14:25 18:09 WBC (4.8-10.8) K/ul RBC (4.70-6.10) M/uL Hgb (14.0-18.0) g/dl Hct (42.0-52.0) % MCV (80.0-100.0) fL MCH (25.0-34.0) pg MCHC (32.0-36.0) g/dL RDW Std Deviation (36.4-46.3) fL RDW Coeff of Conchis (11.5-14.5) % Plt Count (130-400) K/uL MPV (9.4-12.4) fL Immature Gran % (Auto) % Neut % (Auto) % Lymph % (Auto) % Lyon % (Auto) % Eos % (Auto) % Baso % (Auto) % Neut # (Auto) (1.40-6.50) K/uL Lymph # (Auto) (1.2-3.4) K/uL Lyon # (Auto) (0.11-0.59) K/uL Eos # (Auto) (0-0.50) K/uL Baso # (Auto) (0-0.2) K/uL Immature Gran # (Auto) (0.01-0.20) K/uL PT (9.0-12.0) Seconds INR (0.9-1.1) VBG pH 7.43 H (7.36-7.41) VBG pCO2 43 (38-50) mmHg VBG pO2 25 mmHg VBG HCO3 29 mmol/L VBG O2 Saturation < 60.0 % VBG Base Excess 3.7 mEq/L Sodium (136-145) mmol/L Potassium (3.5-5.1) mmol/L Chloride (98-107) mmol/L Carbon Dioxide (21-32) mmol/L Anion Gap (3-11) BUN (6-23) mg/dl Creatinine (0.6-1.4) mg/dl Est Cr Clr Drug Dosing ml/min Est GFR ( Amer) ml/min Est GFR (Non-Af Amer) ml/min BUN/Creatinine Ratio (10-20) Glucose (70-99(Fasting)) mg/dl Lactate (0.4-2.0) mmol/L Calcium (8.5-10.1) mg/dl Magnesium (1.7-2.4) mg/dl Total Bilirubin (0.2-1.0) mg/dl Direct Bilirubin (0-0.2) mg/dl AST (13-39) U/L ALT (7-52) U/L Alkaline Phosphatase (34-104) U/L Troponin I High Sens 1020.5 H* (0-20) pg/ml Total Protein (6.0-8.3) gm/dl Albumin (3.4-5.0) gm/dl Procalcitonin (0-0.5) ng/ml SARS-CoV-2 (PCR) (Negative) Influenza Type A (PCR) (Neg) Influenza Type B (PCR) (Neg) RSV (RT-PCR) (Neg) Administered Medications Heparin Sodium/Dextrose (Heparin Sodium/Dextrose) 25,000 units in 500 mls @ 24 mls/hr IV .[id number] [facility]; Protocol Stop: 11/18/22 16:59 Last Admin: 10/19/22 17:30 Dose: 1,200 units/hr, 24 mls/hr Documented By: RAFFI Co-signed By: OAM Discontinued Medications Acetaminophen (Acetaminophen 500 Mg Tab) 1,000 mg PO NOW STA Stop: 10/19/22 13:39 Last Admin: 10/19/22 14:11 Dose: 1,000 mg Documented By: SONUK Albuterol (Albut/Ipratrop 3mg/0.5mg Neb 3 Ml Vial) 3 ml NEB NOW STA; Protocol Stop: 10/19/22 13:43 Last Admin: 10/19/22 14:12 Dose: 3 ml Documented By: SONUK Aspirin (Aspirin Chew 324 Mg) 324 mg PO NOW STA Stop: 10/19/22 15:01 Last Admin: 10/19/22 15:12 Dose: 324 mg Documented By: SONUK Heparin Sodium/Dextrose (Heparin Iv Adult Wt-Based Standard *No* Bolus Protocol) 1 each IV ONE ONE; Protocol Stop: 10/19/22 16:35 Last Admin: 10/19/22 17:18 Dose: Not Given Documented By: RAFFI Sodium Chloride (Nss 1000ml) 1,000 mls @ 999 mls/hr IV .Q1H1M LUCI Stop: 10/19/22 15:45 Last Infusion: 10/19/22 16:22 Dose: 0 mls/hr Documented By: Admin: 10/19/22 15:15 Dose: 999 mls/hr Documented By: Infusion: 10/19/22 15:11 Dose: 999 mls/hr Documented By: Admin: 10/19/22 14:10 Dose: 999 mls/hr Documented By: RAFFI Ceftriaxone Sodium 1,000 mg/ (Dextrose) 50 mls @ 100 mls/hr IV NOW STA Stop: 10/19/22 15:29 Last Infusion: 10/19/22 16:22 Dose: 0 mls/hr Documented By: Admin: 10/19/22 15:45 Dose: 100 mls/hr Documented By: DENILSON Doxycycline Hyclate 100 mg/ (Dextrose) 110 mls @ 50 mls/hr IV NOW STA Stop: 10/19/22 17:11 Last Infusion: 10/19/22 18:26 Dose: 0 mls/hr Documented By: Admin: 10/19/22 16:22 Dose: 50 mls/hr Documented By: CGK Ioversol (Optiray 350 100ml) 96 ml IV ONCE ONE Stop: 10/19/22 15:42 Last Admin: 10/19/22 15:42 Dose: 96 ml Documented By: [facility] Imaging Data Radiologist's Impression: Chest X-Ray 10/19/22 13:37 XR chest 1V portable CLINICAL HISTORY: Sepsis TECHNIQUE: Single frontal radiograph of the chest was obtained. Comparison: Comparison is made to chest radiograph 09/08/2022 FINDINGS: No lines and tubes are seen. Calcified aortic knob is seen. There is a density in the right upper lobe corresponding to previously noted nodule. In addition there is a new nodular density in the left lower lung measuring approximately 4 cm. Airspace opacity is also seen in the right lower lung. No evidence of pleural effusion or pneumothorax. IMPRESSION: 1. New nodular density in the left lower lung and airspace opacity in the right lower lung are favored to represent worsening infectious/inflammatory process. Follow-up to resolution is recommended. 2. Redemonstration of right upper lobe pulmonary nodule. This demonstrated FDG uptake on prior PET/CT concerning for malignancy. ACT 112: Negative or not required by law. Electronically signed by: Michi Dias M.D. 10/19/2022 2:03 PM Chest CTA 10/19/22 15:07 CT angio chest PE protocol CT DOSE: 350.98 mGycm HISTORY: 87 years-old Male with PE, SOB, Elevated troponin. Acute shortness of breath TECHNIQUE: Multiple CTA images of the chest were obtained after the intravenous administration of 96 ml Optiray. Coronal and sagittal MIPS were obtained from the axial data set and were submitted for review. All measurements were obtaine d according to NASCET criteria. A dose lowering technique was utilized adhering to the principles of ALARA. COMPARISON: Chest CT 09/16/2022, PET CT 10/05/2022 FINDINGS: CTA: Moderate cardiomegaly. No pericardial effusion. Moderate to extensive coronary artery calcifications. Extensive atherosclerosis of the thoracic aorta without aneurysm or dissection. High-grade stenosis at the origin of the superior mese nteric artery. The segmental and subsegmental pulmonary arterial branches within the lung bases are suboptimally evaluated secondary to respiratory motion artifact. No definite pulmonary emboli identified. CT CHEST: No thyroid nodule identified. Mild mediastinal and bilateral hilar lymphadenopathy redemonstrated with right hilar lymph nodes measuring up to 1.2 cm. Paratracheal lymph nodes measure up to 1.1 cm, similar to prior. Trace pleural effusions. Severe pulmonary emphysema with bronchial wall thickening and mild bibasilar mucous plugging. Progressively worsened bibasilar consolidative and groundglass densities. 1.7 cm subpleural nodule in the right upper lobe on image 219 series 4 is stable. Previously noted 1.1 cm nodular density of the left lower lobe is obscured. Mild nonspecific distal esophageal wall thickening. No acute process of the imaged upper abdomen. Degenerative changes of the shoulders and spine. IMPRESSION: 1. No pulmonary emboli identified. 2. Severe emphysema with bronchitis and progressively worsened bibasilar predom inant pneumonia. 3. Stable mild mediastinal and hilar lymphadenopathy. 4. Unchanged 1.7 cm suspicious subpleural nodule within the right upper lobe. ACT 112: Negative or not required by law. The above report was generated using voice recognition software. It may contain grammatical, syntax or spelling errors. Electronically signed by: Marcel Odonnell M.D. 10/19/2022 3:58 PM Discharge Plan Visit Data Chief Complaint: Illness ED Provider: Damian Gan Discharge Problem: Hypoxia Forms Stand Alone Forms: My [facility] [place] NXVISION Prescriptions Prescriptions: No Action azithromycin 250 mg tablet 250 mg PO .Three times/week Rx Instructions: start on day 2 of therapy ginkgo biloba leaf extract 60 mg capsule 60 mg PO DAILY Rx Instructions: give with meal/snack saw palmetto 450 mg capsule 450 mg PO BID Rx Instructions: give with food (meal/snack) guaifenesin [Mucinex] 600 mg tablet extended release 12hr 600 mg PO BID Qty: 180 1RF albuterol sulfate [ProAir HFA] 90 mcg/actuation HFA aerosol inhaler 2 puff inhalation Q6H PRN (Reason: Shortness Of Breath) Qty: 3 1RF (DME) Portable Oxygen Misc See Rx Instructions .MEDSUPPLY Qty: 1 0RF Rx Instructions: Pt may increase O2 to 3lpm via nc PRN to maintain O2 Sat above 88% WILIAN 99 Trelegy Ellipta 100-62.5-25 mcg blister with device 1 inh inhalation DAILY Qty: 3 1RF finasteride 5 mg tablet 5 mg PO DAILY Qty: 90 3RF ipratropium-albuterol 0.5 mg-3 mg(2.5 mg base)/3 mL solution for nebulization 3 ml inhalation Q8H PRN (Reason: shortness of breath or wheezing) Qty: 180 5RF glucosamine-chondroitin [Osteo Bi-Flex] 250-200 mg tablet 2 tab PO QAM Rx Instructions: give after food/meal (DME) Flutter Valve Device See Rx Instructions .MEDSUPPLY Qty: 1 0RF Rx Instructions: Use it every 6 hours when awake. metoprolol succinate 50 mg tablet extended release 24 hr 50 mg PO DAILY Qty: 90 3RF (DME) Flutter Valve Device See Rx Instructions .MEDSUPPLY Qty: 1 0RF Rx Instructions: Use it every 6 hours when awake. omega-3 acid ethyl esters 1 gram capsule 1 cap PO QAM (DME) nebulizers Misc See Rx Instructions miscellaneous .MEDSUPPLY Qty: 1 0RF Rx Instructions: Use BID with saline in the nebulizer and as directed. Lifetime need. sodium chloride 7 % solution for nebulization 4 ml INHALATION BID Qty: 240 8RF green tea leaf extract [Green Tea] 250 mg Capsule 500 mg PO QAM Centrum Silver Ultra Men's 300-600-300 mcg Tablet 1 tab PO QAM aspirin [Pablo Low Dose Aspirin] 81 mg Tablet,Delayed Release (Dr/Ec) 81 mg PO QAM Referrals Referrals: Ignacio Alonzo MD [Primary Care Provider] -
--- NOTE | 2022-10-19 14:05 | XRay Report ---
XR chest 1V portable CLINICAL HISTORY: Sepsis TECHNIQUE: Single frontal radiograph of the chest was obtained. Comparison: Comparison is made to chest radiograph 09/08/2022 FINDINGS: No lines and tubes are seen. Calcified aortic knob is seen. There is a density in the right upper lob e corresponding to previously noted nodule. In addition there is a new nodular density in the left lo wer lung measuring approximately 4 cm. Airspace opacity is also seen in the right lower lung. No evid ence of pleural effusion or pneumothorax. IMPRESSION: 1. New nodular density in the left lower lung and airspace opacity in the right lower lung are favor ed to represent worsening infectious/inflammatory process. Follow-up to resolution is recommended. 2. Redemonstration of right upper lobe pulmonary nodule. This demonstrated FDG uptake on prior PET/C T concerning for malignancy. ACT 112: Negative or not required by law. Electronically signed by: Michi Dias M.D. 10/19/2022 2:03 PM
[2022-10-19] MEDS: SODIUM CHLORIDE 0.9% 1000ML 1,000 ML IV SCH ×2 (14:10→15:15)
[2022-10-19 14:17] LABS: Hematocrit (blood only) 39.7 % (42.0-52.0); Hemoglobin 12.4 g/dl (14.0-18.0); Mean Corpuscular Hemoglobin 27.2 pg (25.0-34.0); Mean Corpuscular Hgb Conc 31.2 g/dL (32.0-36.0); Mean Corpuscular Volume 87.1 fL (80.0-100.0); Mean Platelet Volume 9.7 fL (9.4-12.4); Platelet Count 207 K/uL (130-400); RDW Coefficient of Variation 15.7 % (11.5-14.5); Red Blood Count 4.56 M/uL (4.70-6.10); White Blood Count 10.14 K/ul (4.8-10.8)
[2022-10-19 14:36] LABS: Albumin Level 3.8 gm/dl (3.4-5.0); BUN Creatinine Ratio 24.2 (10-20); Bilirubin Direct 0.1 mg/dl (0-0.2); Bilirubin,Total 0.6 mg/dl (0.2-1.0); Calcium 10.4 mg/dl (8.5-10.1); Creatinine Clr Calc Pharmacy 38.8 ml/min; Est GFR (African American) 61.8 ml/min; Est GFR (Non-African American) 53.3 ml/min; Magnesium 1.8 mg/dl (1.7-2.4); Potassium 4.7 mmol/L (3.5-5.1); Total Protein 7.2 gm/dl (6.0-8.3)
[2022-10-19 14:38] LABS: Prothrombin Time 11.1 Seconds (9.0-12.0)
[2022-10-19 14:45] LABS: Basophils # (auto) 0.04 K/uL (0-0.2); Basophils % (auto) 0.4 %; Eosinophils # (auto) 0.01 K/uL (0-0.50); Eosinophils % (auto) 0.1 %; Immature Granulocytes # (auto) 0.02 K/uL (0.01-0.20); Immature Granulocytes % (auto) 0.2 %; Lymphocytes # (auto) 0.36 K/uL (1.2-3.4); Lymphocytes % (auto) 3.6 %; Monocytes # (auto) 0.33 K/uL (0.11-0.59); Monocytes % (auto) 3.3 %; Neutrophils # (auto) 9.38 K/uL (1.40-6.50); Neutrophils % (auto) 92.4 %
[2022-10-19 14:50] LABS: Base Excess VBG 3.7 mEq/L; HCO3 VBG 29 mmol/L; Oxygen Saturation VBG < 60.0 %; PCO2 VBG 43 mmHg (38-50); PO2 VBG 25 mmHg; pH VBG 7.43 (7.36-7.41)
[2022-10-19 14:59] LABS: Troponin I High Sensitivity 1175.5 pg/ml (0-20)
[2022-10-19] MEDS ORDERED: ASPIRIN CHEW 324 MG PO STA (15:00)
[2022-10-19] MEDS ORDERED: cefTRIAXone SODIUM 1,000 MG in DEXTROSE 5% AD-VAN 50 ML IV STA (15:00)
[2022-10-19] MEDS ORDERED: DOXYCYCLINE HYCLATE 100 MG in DEXTROSE 5% 100 ML IV STA (15:00)
[2022-10-19 15:29] LABS: Influenza A virus by PCR Negative (Neg); Influenza B virus by PCR Negative (Neg); RSV by PCR Negative (Neg); SARS CoV2 RNA(COVID-19) Ceph NEGATIVE (Negative)
[2022-10-19] MEDS ORDERED: OPTIRAY 350 100ml IV ONE (15:41)
--- NOTE | 2022-10-19 15:59 | CT Scan Report ---
CT angio chest PE protocol CT DOSE: 350.98 mGycm HISTORY: 87 years-old Male with PE, SOB, Elevated troponin. Acute shortness of breath TECHNIQUE: Multiple CTA images of the chest were obtained after the intravenous administration of 96 ml Optiray. Coronal and sagittal MIPS were obtained from the axial data set and were submitted for r eview. All measurements were obtained according to NASCET criteria. A dose lowering technique was ut ilized adhering to the principles of ALARA. COMPARISON: Chest CT 09/16/2022, PET CT 10/05/2022 FINDINGS: CTA: Moderate cardiomegaly. No pericardial effusion. Moderate to extensive coronary artery calcifications. Extensive atherosclerosis of the thoracic aorta without aneurysm or dissection. 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 The segmental and subsegmental pulmonary arterial br anches within the lung bases are suboptimally evaluated secondary to respiratory motion artifact. No definite pulmonary emboli identified. CT CHEST: No thyroid nodule identified. Mild mediastinal and bilateral hilar lymphadenopathy redemonstrated wit h right hilar lymph nodes measuring up to 1.2 cm. Paratracheal lymph nodes measure up to 1.1 cm, kenzie lar to prior. Trace pleural effusions. Severe pulmonary emphysema with bronchial wall thickening and mild bibasilar mucous plugging. Progressively worsened bibasilar consolidative and groundglass densities. 1.7 cm hamm bpleural nodule in the right upper lobe on image 219 series 4 is stable. Previously noted 1.1 cm nodu lar density of the left lower lobe is obscured. Mild nonspecific distal esophageal wall thickening. No acute process of the imaged upper abdomen. Deg enerative changes of the shoulders and spine. IMPRESSION: 1. No pulmonary emboli identified. 2. Severe emphysema with bronchitis and progressively worsened bibasilar predominant pneumonia. 3. Stable mild mediastinal and hilar lymphadenopathy. 4. Unchanged 1.7 cm suspicious subpleural nodule within the right upper lobe. ACT 112: Negative or not required by law. The above report was generated using voice recognition software. It may contain grammatical, syntax o r spelling errors. Electronically signed by: Marcel Odonnell M.D. 10/19/2022 3:58 PM
[2022-10-19] MEDS ORDERED: Heparin IV Adult Wt-Based Standard *NO* Bolus Protocol IV ONE (16:34)
[2022-10-19] MEDS ORDERED: HEPARIN SODIUM/DEXTROSE 25,000 UNITS/500 ML BAG IV SCH (17:00)
--- NOTE | 2022-10-19 17:32 | History & Physical Report ---
Date of Service October 19, 2022 Assessment & Plan (1) Elevated troponin: Plan: Acute bibasilar pneumonia CTA: 1. No pulmonary emboli identified. 2. Severe emphysema with bronchitis and progressively worsened bibasilar predominant pneumonia. 3. Stable mild mediastinal and hilar lymphadenopathy.4. Unchanged 1.7 cm suspicious subpleural nodule within the right upper lobe. - CXR: 1. New nodular density in the left lower lung and airspace opacity in the right lower lung are favored to represent worsening infectious/inflammatory process. Follow-up to resolution is recommended. 2. Redemonstration of right upper lobe pulmonary nodule. This demonstrated FDG uptake on prior PET/CT concerning for malignancy. Procalcitonin 1.40 Given that patient is on azithromycin suppressive therapy as outpatient we will hold and switch to doxycycline twice daily with Rocephin for community-acquired bibasilar pneumonia CBC daily Sputum culture pending MRSA nares pending Elevated troponin -High-sensitivity troponin 1175 on admission, was started on heparin drip with out bolus although patient without chest pain and suspect this is likely demand in the setting of pneumonia and hypoxia Repeat troponin pending T wave inversion in lateral leads on EKG suggestive of ischemia, no ST segment changes Echo pending. Dobutamine stress echo 12/2020 negative for ischemia at 92% MPHR, no induced chest pain/EKG changes. Last echo prior 2019 with EF 60-65%, type I diastolic dysfunction NSVT On metoprolol. Up titration has been limited in the past by sinus bradycardia, however he has done well on current dose. Continue telemetry Ischemic evaluation as noted above History of aortic aneurysm repair Periodic outpatient follow-up, no acute change COPD with emphysema Gold class C/D Continue Trelegy/formulary equivalent Continue azithromycin MWF Last PFT 02/2022 FVC 92%, FEV1 57%, FEV1/FVC 43%, DLCO 60% - 3L baseline oxygen requirement, increased to 6L in the setting of pneumonia Pulmonary nodule PET positive, followed at conference with a 0.5 cm growth over 2 years BPH with LUTS Continue finasteride He is pending SBRT after review 10/13/2022 DVT prophylaxis: Pending 2-hour troponin. If increasing will heparinize, otherwise will use heparin subcu for DVT prophylaxis Diet: Heart healthy Disposition: Telemetry for pneumonia with cardiac eval, history of NSVT CODE STATUS: Full code (2) AAA (abdominal aortic aneurysm): (3) CKD (chronic kidney disease), stage III: (4) NSVT (nonsustained ventricular tachycardia): (5) Hypoxia: (6) BPH w urinary obs/LUTS: History of Present Illness Primary Care Provider: Ignacio Alonzo MD Mr. Chavez is an 87-year-old male with a past medical history of COPD, hypertension, hyperlipidemia presents with cough and chills for 2 days. Found to be hypoxic in the ER. 1 day of shortness of breath, general weakness, and 'shakiness' with cough. No chest pain. Endorses chest pressure in his sterum around 8:30pm last night. Went away after a half an hour. No prior chest pain/pressure. Highest level of exertion is going up and down stairs to his basement, does not get chest pain/chest pressure with this. Is chronically somewhat short of breath, this has not changed recently. +sputum production with cough, less yesterday but has been more yellow-green 'mustardy' color lately. Is usually somwhat yellow and is followed by pulmonary. Pending beam radiation, has not had this started yet for pulm nodule. o history of IL. No hx of stents. No history of Diabetes Hx of borderline HTN, normally well controlled. Is on MTP for NSVT not HTN per pt No FHx of early IL Takes a daily aspirin Medical History: Reviewed Medications: Reviewed Surgical History: Reviewed Allergies: Reviewed Social History: No current tobacco use, quit Oct 1999. Etoh ~2 drinks every few days. Code Status: Full Code Allergies Allergy/AdvReac Type Severity Reaction Status Date / Time roflumilast [From [facility]] Allergy Intermediate rash Verified 10/19/22 15:03 Home Medications Medication Instructions Recorded Confirmed Type omega-3 acid ethyl esters 1 gram 1 cap PO QAM 05/17/19 10/19/22 History capsule aspirin 81 mg tablet,delayed 81 mg PO QAM 06/25/19 10/19/22 History release (Pablo Low Dose Aspirin) guaifenesin 600 mg tablet, 600 mg PO BID #180 tabs 12/12/19 10/19/22 Rx extended release 12 hr (Mucinex) green tea leaf extract 250 mg 500 mg PO QAM 01/18/20 10/19/22 History capsule (Green Tea) ogsopswp-eet-djjzd acid 300 1 tab PO QAM 01/18/20 10/19/22 History mcg-lycopene 600 mcg-lutein 300 mcg tablet (Centrum Silver Ultra Men's) nebulizers #1 ea 07/08/20 10/19/22 Rx glucosamine-chondroitin 250 mg-200 2 tab PO QAM 11/11/20 10/19/22 History mg tablet (Osteo Bi-Flex) Flutter Valve #1 ea 03/10/21 10/19/22 Rx metoprolol succinate 50 mg 50 mg PO DAILY #90 tabs 08/31/21 10/19/22 Rx tablet,extended release 24 hr albuterol sulfate 90 mcg/actuation 2 puff inhalation Q6H PRN 12/29/21 10/19/22 Rx aerosol inhaler (ProAir HFA) Shortness Of Breath #3 Inhalers Portable Oxygen #1 ea 06/06/22 10/19/22 Rx fluticasone fur. 100 mcg-umeclid 1 inh inhalation DAILY #3 Inhalers 06/13/22 10/19/22 Rx 62.5 mcg-vilant 25 mcg inhalat.powder (Trelegy Ellipta) finasteride 5 mg tablet 5 mg PO DAILY #90 tabs 08/05/22 10/19/22 Rx ipratropium 0.5 mg-albuterol 3 mg 3 ml inhalation Q8H PRN shortness 09/12/22 Rx (2.5 mg base)/3 mL nebulization of breath or wheezing #180 mL soln Flutter Valve #1 ea 09/16/22 10/19/22 Rx azithromycin 250 mg tablet 250 mg PO .Three times/week 10/12/22 10/19/22 History ginkgo biloba leaf extract 60 mg 60 mg PO DAILY 10/12/22 10/19/22 History capsule saw palmetto 450 mg capsule 450 mg PO BID 10/12/22 10/19/22 History sodium chloride 7 % for 4 ml inhalation BID #240 mL 10/17/22 10/19/22 Rx nebulization Past Med/Surg History Medical History (Updated 10/19/22 @ 17:39 by Ignacio Cunningham MD) AAA (abdominal aortic aneurysm) Aorto-iliac disease Chest pain Chronic cough Chronic obstructive pulmonary disease follows Jovany Borja. rarely uses rescue inh CKD (chronic kidney disease), stage III COPD (chronic obstructive pulmonary disease) Glaucoma of both eyes HTN (hypertension) Hyperlipidemia Hypertension NSVT (nonsustained ventricular tachycardia) pt unaware of this Osteoarthritis Sinus bradycardia Solitary pulmonary nodule follows [facility] [place] Surgical History (Updated 10/12/22 @ 13:21 by Morena Bailey, RN) H/O aortic aneurysm repair Oct 1999- suzy romero / follows Dr. Marshall MICHAEL History of AAA (abdominal aortic aneurysm) repair History of back surgery L4-L5 History of cataract surgery LEFT History of colonoscopy History of herniorrhaphy Right groin History of lumbar laminectomy Inguinal hernia Family History (Updated 10/12/22 @ 13:26 by Morena Bailey, RN) Brother Medical history unknown Mother , 96yo Natural with unknown cause Hypertension Father , in his 50s Emphysema lung Son No problems noted. Son No problems noted. Son No problems noted. Denies family history of Myocardial infarction Stroke Social History (Updated 10/12/22 @ 13:28 by Morena Bailey, RN) Smoking Status: Former smoker Tobacco Type: Cigarettes packs per day: 1; Second Hand Exposure: No; Hx Alcohol Use: Yes Alcohol type: beer, wine and hard liquor Alcohol Intake Frequency Comment: 2 vodka cranberry drinks maybe 3-4 days a week Hx Substance Use: No Preferred Language: Panamanian Communication Ability: Effective Visual Impairment: No Limitations Hearing Ability: Normal Table And Desk Finisher Required: No Beliefs That Will Affect Care: None marital status: Current Living Situation: Spouse Current Living Situation Comment: Lives independently at home with current occupational status: retired How many Children do You have: 3 Feels Safe at Home: Yes caffeine: Yes (2 cups/day) during the past year weight has: decreased > 10 lbs Dental Care, Regularly: No Seatbelt Use: always Assistive Devices: Oxygen - at Night Review of Systems Review of Systems: All systems reviewed & are unremarkable except as noted in Subjective Physical Exam Physical Exam: General: A&Ox3. NAD. Cooperative. HEENT: Atraumatic, normocephalic. Vision/hearing intact, pupils equal and react Pulm: Bibasilar crackles, no wheezing on exam. Coarse in the left lower lung symmetrical chest rise. No increased work of breathing. No respiratory distress. On NC oxygen Cardiac: RRR, -mrg. Radial pulses intact and symmetrical. Abdominal: Nontender, nondistended, soft. BS present. Extremities: Warm, dry. No ankle edema. Moving all extremities equally Results & Data Results & Data ([facility]) Vital Signs (Past 12 Hours) Vital Signs Temp Pulse Pulse Resp BP BP Pulse Ox 10/19/22 16:00 88 24 134/72 94 10/19/22 14:37 83 22 126/52 L 93 10/19/22 15:07 83 22 155/66 H 94 10/19/22 13:37 5 L 10/19/22 13:57 82 10/19/22 13:25 39.3 C H 80 26 H 155/66 H 92 O2 Del Method O2 Flow Rate 10/19/22 16:00 Nasal Cannula 5 10/19/22 14:37 Nasal Cannula 5 10/19/22 15:07 Nasal Cannula 5 10/19/22 13:37 Nasal Cannula 10/19/22 13:57 10/19/22 13:25 Nasal Cannula 4 PG Care Time/CCT Total # of Minutes Spent Total Time Spent with Patient: Total time spent is greater than 50% in coordination of care (as documented) at patient's floor/unit and/or counseling patient: Coding Level of Care Code 65733 INT INP/OBS CARE 3/75MIN Diagnoses Elevated troponin R77.8 AAA (abdominal aortic aneurysm) I71.4 CKD (chronic kidney disease), stage III N18.30 NSVT (nonsustained ventricular tachycardia) I47.2 Hypoxia R09.02 BPH w urinary obs/LUTS N40.1; N13.8
[2022-10-19] MEDS ORDERED: ACETAMINOPHEN 325 MG TAB PO PRN (20:22)
[2022-10-19] MEDS ORDERED: NITROGLYCERIN SL 0.4 MG/TAB TAB SL PRN (20:22)
[2022-10-19] MEDS ORDERED: ALBUTEROL HFA 8 GM INHALER INH PRN (20:22)
[2022-10-19] MEDS ORDERED: ALBUT/IPRATROP 3MG/0.5MG NEB 3 ML VIAL INH PRN (20:22)
[2022-10-19] MEDS: SODIUM CHLOR 7% 4 ML NEB INH SCH (20:51)
--- NOTE | 2022-10-20 00:08 | Electrocardiogram Report ---
Test Reason : Blood Pressure : / mmHG Vent. Rate : 077 BPM Atrial Rate : 077 BPM P-R Int : 184 ms QRS Dur : 080 ms QT Int : 358 ms P-R-T Axes : 000 058 049 degrees QTc Int : 405 ms Poor data quality, interpretation may be adversely affected Sinus rhythm with Premature atrial complexes T wave abnormality, consider anterolateral ischemia Abnormal ECG When compared with ECG of 19-SEP-2021 23:24, Premature atrial complexes are now Present Questionable change in QRS axis T wave inversion now evident in Anterolateral leads Confirmed by Vamsi Elam ([id number]) on 10/20/2022 12:08:45 AM Referred By: REFERRED SELF Confirmed By:Vamsi Elam
[2022-10-20] MEDS: DOXYCYCLINE HYCLATE 100 MG in DEXTROSE 5% 100 ML IV SCH ×2 (04:11→15:24)
[2022-10-20] MEDS: SODIUM CHLOR 7% 4 ML NEB INH SCH ×2 (07:04→19:47)
[2022-10-20] MEDS: FLUTICASONE FUROATE 100MCG 14 PUFFS/INHALER INH SCH (08:11)
[2022-10-20] MEDS: UMECLIDINIUM/VILANTEROL 62.5/25MCG 7 PUFFS/INHALER INH SCH (08:12)
[2022-10-20] MEDS: METOPROLOL SUCC 50MG EXT REL TAB PO SCH (08:12)
[2022-10-20] MEDS: ASPIRIN 81 MG ECTAB PO SCH (08:12)
[2022-10-20] MEDS: FINASTERIDE 5 MG TAB PO SCH (08:12)
--- NOTE | 2022-10-20 08:48 | Hospitalist Progress Note ---
Date of Service October 20, 2022 Assessment & Plan (1) Elevated troponin: Plan: Acute bibasilar pneumonia, significant risk in face of COPD CTA: 1. No pulmonary emboli identified. 2. Severe emphysema with bronchitis and progressively worsened bibasilar predominant pneumonia. 3. Stable mild mediastinal and hilar lymphadenopathy.4. Unchanged 1.7 cm suspicious subpleural nodule within the right upper lobe. - CXR: 1. New nodular density in the left lower lung and airspace opacity in the right lower lung are favored to represent worsening infectious/inflammatory process. Follow-up to resolution is recommended. 2. Redemonstration of right upper lobe pulmonary nodule. This demonstrated FDG uptake on prior PET/CT concerning for malignancy. mildly elevated calcium also Procalcitonin 1.40 Given that patient is on azithromycin suppressive therapy as outpatient concerns of gram negative pneumonia switched to cefepime therapy Sputum culture pending MRSA nares negative Elevated troponin, acute issue, moderate risk, *Myocardial infarction type 2 due to demand ischemia T wave inversion in lateral leads on EKG suggestive of ischemia, no ST segment changes Echo pending. Dobutamine stress echo 12/2020 negative for ischemia at 92% MPHR, no induced chest pain/EKG changes. Last echo prior 2019 with EF 60-65%, type I diastolic dysfunction NSVT chronic stable continue medical management On metoprolol. Up titration has been limited in the past by sinus bradycardia, however he has done well on current dose. History of aortic aneurysm repair Periodic outpatient follow-up, no acute change COPD with emphysema chronic and severe, 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 Continue Trelegy/formulary equivalent change suppressive azithromycin MWF to acute antibiotics treatment Last PFT 02/2022 FVC 92%, FEV1 57%, FEV1/FVC 43%, DLCO 60% - 3L baseline oxygen requirement, has returned to baseline now hypercalcemia with concern for malignancy, will check pTh RP and consider Zometa or pamidronate if elevated Pulmonary nodule PET positive, followed at conference with a 0.5 cm growth over 2 years BPH with LUTS chronic and stable Continue finasteride He is pending SBRT after review 10/13/2022 DVT prophylaxis: heparin subcu Disposition: Telemetry for pneumonia with cardiac eval, history of NSVT CODE STATUS: Full code (2) AAA (abdominal aortic aneurysm): (3) CKD (chronic kidney disease), stage III: (4) NSVT (nonsustained ventricular tachycardia): (5) Hypoxia: (6) BPH w urinary obs/LUTS: Admission and Anticipated Discharge Date Admission Date: October 19, 2022 Subjective Patient was seen in company of his . He feels much better. However he was significantly ill on presentation has multifocal pneumonia with baseline significant chronic lung disease present He states that his breathing is much improved his mucus production is variable at this time Physical Exam Physical Exam: Patient has coarse rhonchi bilaterally at both bases with prolonged expiratory phase but no focal loss or wheezes Results & Data Results & [facility] ([facility]) Vital Signs (Past 12 Hours) Vital Signs Temp Pulse Pulse Resp BP Pulse Ox O2 Del Method 10/20/22 08:06 98.4 F 65 18 179/73 H Nebulizer 10/20/22 07:05 75 19 95 Nasal Cannula 10/20/22 02:48 98.8 F 70 18 143/67 H 95 Nasal Cannula 10/19/22 23:12 65 10/19/22 23:04 97.7 F 72 17 103/61 90 Nasal Cannula 10/19/22 20:51 67 16 96 Nasal Cannula O2 Flow Rate 10/20/22 08:06 10/20/22 07:05 5 10/20/22 02:48 5 10/19/22 23:12 10/19/22 23:04 5 10/19/22 20:51 5 Laboratory Results Reviewed troponin Ordered PTH RP Reviewed chemistry Reviewed CBC PG Care Time/CCT Total # of Minutes Spent Total Time Spent with Patient: Total time spent is greater than 50% in coordination of care (as documented) at patient's floor/unit and/or counseling patient: Coding Level of Care Code 86231 SUB INP/OBS CARE 3/50MIN Diagnoses Elevated troponin R77.8 AAA (abdominal aortic aneurysm) I71.4 CKD (chronic kidney disease), stage III N18.30 NSVT (nonsustained ventricular tachycardia) I47.2 Hypoxia R09.02 BPH w urinary obs/LUTS N40.1; N13.8
[2022-10-20] MEDS ORDERED: NON-FORMULARY MEDICATION (Fluticasone-Umeclidin-Vilanter [Trelegy Ellipta] 100-62.5-25 mcg INH SCH (09:00)
[2022-10-20 09:19] LABS: Appearance Urine Clear (Clear); Bacteria Urine Automated Negative (Negative); Bilirubin Urine Negative (Negative); Blood Urine Negative (Negative); Color Urine Yellow; Glucose Urine UA Negative (Negative); Ketones Urine Negative (Negative); Leukocyte Esterase Urine Negative (Negative); Nitrite Urine Negative (Negative); Protein Urine Trace (Negative); RBC Urine Automated 0-4 /hpf (0-4); Specific Gravity Urine 1.026 (1.000-1.030); Urobilinogen Urine Negative (Negative)
[2022-10-20 09:43] LABS: Basophils # (auto) 0.06 K/uL (0-0.2); Basophils % (auto) 0.4 %; Eosinophils # (auto) 0.03 K/uL (0-0.50); Eosinophils % (auto) 0.2 %; Hematocrit (blood only) 35.2 % (42.0-52.0); Hemoglobin 10.9 g/dl (14.0-18.0); Immature Granulocytes # (auto) 0.03 K/uL (0.01-0.20); Immature Granulocytes % (auto) 0.2 %; Lymphocytes # (auto) 0.85 K/uL (1.2-3.4); Lymphocytes % (auto) 5.9 %; Mean Corpuscular Hemoglobin 26.7 pg (25.0-34.0); Mean Corpuscular Volume 86.3 fL (80.0-100.0); Mean Platelet Volume 9.4 fL (9.4-12.4); Monocytes # (auto) 0.52 K/uL (0.11-0.59); Monocytes % (auto) 3.6 %; Neutrophils % (auto) 89.7 %; Platelet Count 185 K/uL (130-400); RDW Standard Deviation 50.4 fL (36.4-46.3); Red Blood Count 4.08 M/uL (4.70-6.10); White Blood Count 14.29 K/ul (4.8-10.8)
[2022-10-20 09:59] LABS: BUN Creatinine Ratio 18.5 (10-20); Calcium 9.8 mg/dl (8.5-10.1); Creatinine Clr Calc Pharmacy 34.4 ml/min; Est GFR (African American) 53.6 ml/min; Est GFR (Non-African American) 46.2 ml/min; Potassium 4.5 mmol/L (3.5-5.1)
--- NOTE | 2022-10-20 11:57 | Cardiology Consultation ---
Date of Consultation October 20, 2022 Assessment & Plan (1) Elevated troponin: Plan 1. Elevated troponin: I think this is more likely related to demand ischemia as opposed to an acute coronary syndrome. While he did have a very brief episode of chest discomfort over 36 hours ago, he has not had recurrence. Prior evaluations have not suggested obstructive coronary disease although given his demographic undoubtedly has some element of coronary disease. He was noted to have hypoxia and this may have precipitated some myocardial injury. He was initially on heparin infusion which has been discontinued. At this point I would continue his daily aspirin and beta-blockade. Given his other severe comorbidities, advanced age and what appears to be an acute infectious process prompting his admission, I would reserve any further evaluation for recurrent symptoms of chest discomfort. History of Present Illness Reason for Consultation: Elevated troponin Requesting Physician: Marisa Attending Physician: Jean Paul Dutta MD History of Present Illness the patient is an 87-year-old gentleman with a history of severe oxygen- dependent COPD and presumed lung cancer who presented to the hospital for symptoms of rigors. In the emergency room cardiac biomarkers were drawn and noted to be elevated. Cardiology was subsequently consulted for evaluation. The patient states that yesterday morning after using his typical inhaler and nebulizer regimen he began to develop "shakes". He does not usually have symptoms of this nature and they were persistent. He did not describe feeling chilled or cold. In fact, he felt somewhat warm by report. He was not known to have a fever and did not report diaphoresis. However, based on the advice of his son he sought medical attention. In the emergency room he was noted to be febrile. Imaging studies suggested either recurrent or progressive pneumonia. Procalcitonin was elevated. The patient was started on antibiotic therapy. His shakes appeared to have resolved. The patient is very limited with respect to activity. This is primarily due to chronic dyspnea and fatigue. he is able ambulate around his residence with oxygen. He wears oxygen around the clock. He does check his oxygen level at home and generally speaking has reading between 88 and 91%. He states at times it is lower. He does have coughing in the morning after his nebulizer treatments. No worsening coughing recently. Again, he did not describe subjective fevers. No chills. He did report 1 episode of chest discomfort which occurred at rest approximately 36 hours ago. This lasted approximately 15 minutes and resolved without any specific intervention. He did not recall feeling symptoms of this nature before. There was no radiation to the back, arm or jaw all. No worsening breathing difficulty at that time. These symptoms have not recurred. He did not have any symptoms of this nature with activity. He does not have exertional chest pain. He has been evaluated extensively in the past for syncope. He was suspected of having VT at 1 point and was placed on beta-blockade. The patient states that he generally does not have dizziness and lightheadedness he cannot recall any recent episodes of syncope. This morning the patient claims to be feeling somewhat tired. His breathing is at baseline. No additional episodes of chest discomfort. Allergies Allergy/AdvReac Type Severity Reaction Status Date / Time roflumilast [From [facility]] Allergy Intermediate rash Verified 10/19/22 15:03 Home Medications Medication Instructions Recorded Confirmed Type omega-3 acid ethyl esters 1 gram 1 cap PO QAM 05/17/19 10/19/22 History capsule aspirin 81 mg tablet,delayed 81 mg PO QAM 06/25/19 10/19/22 History release (Pablo Low Dose Aspirin) guaifenesin 600 mg tablet, 600 mg PO BID #180 tabs 12/12/19 10/19/22 Rx extended release 12 hr (Mucinex) green tea leaf extract 250 mg 500 mg PO QAM 01/18/20 10/19/22 History capsule (Green Tea) svkfuvxc-ftp-vlhiq acid 300 1 tab PO QAM 01/18/20 10/19/22 History mcg-lycopene 600 mcg-lutein 300 mcg tablet (Centrum Silver Ultra Men's) nebulizers #1 ea 07/08/20 10/19/22 Rx glucosamine-chondroitin 250 mg-200 2 tab PO QAM 11/11/20 10/19/22 History mg tablet (Osteo Bi-Flex) Flutter Valve #1 ea 03/10/21 10/19/22 Rx metoprolol succinate 50 mg 50 mg PO DAILY #90 tabs 08/31/21 10/19/22 Rx tablet,extended release 24 hr albuterol sulfate 90 mcg/actuation 2 puff inhalation Q6H PRN 12/29/21 10/19/22 Rx aerosol inhaler (ProAir HFA) Shortness Of Breath #3 Inhalers Portable Oxygen #1 ea 06/06/22 10/19/22 Rx fluticasone fur. 100 mcg-umeclid 1 inh inhalation DAILY #3 Inhalers 06/13/22 10/19/22 Rx 62.5 mcg-vilant 25 mcg inhalat.powder (Trelegy Ellipta) finasteride 5 mg tablet 5 mg PO DAILY #90 tabs 08/05/22 10/19/22 Rx ipratropium 0.5 mg-albuterol 3 mg 3 ml inhalation Q8H PRN shortness 09/12/22 10/19/22 Rx (2.5 mg base)/3 mL nebulization of breath or wheezing #180 mL soln Flutter Valve #1 ea 09/16/22 10/19/22 Rx azithromycin 250 mg tablet 250 mg PO .Three times/week 10/12/22 10/19/22 History ginkgo biloba leaf extract 60 mg 60 mg PO DAILY 10/12/22 10/19/22 History capsule saw palmetto 450 mg capsule 450 mg PO BID 10/12/22 10/19/22 History sodium chloride 7 % for 4 ml inhalation BID #240 mL 10/17/22 10/19/22 Rx nebulization Patient History Medical History (Updated 10/19/22 @ 17:39 by Ignacio Cunningham MD) AAA (abdominal aortic aneurysm) Aorto-iliac disease Chest pain Chronic cough Chronic obstructive pulmonary disease follows Jovany Borja. rarely uses rescue inh CKD (chronic kidney disease), stage III COPD (chronic obstructive pulmonary disease) Glaucoma of both eyes HTN (hypertension) Hyperlipidemia Hypertension NSVT (nonsustained ventricular tachycardia) pt unaware of this Osteoarthritis Sinus bradycardia Solitary pulmonary nodule follows [facility] [place] Surgical History (Updated 10/12/22 @ 13:21 by Morena Bailey RN) H/O aortic aneurysm repair Oct 1999- suzy romero / follows Dr. Olivares [facility] [place] History of AAA (abdominal aortic aneurysm) repair History of back surgery L4-L5 History of cataract surgery LEFT History of colonoscopy History of herniorrhaphy Right groin History of lumbar laminectomy Inguinal hernia Family History (Updated 10/12/22 @ 13:26 by Morena Bailey, TORSTEN) Brother Medical history unknown Mother , 96yo Natural with unknown cause Hypertension Father , in his 50s Emphysema lung Son No problems noted. Son No problems noted. Son No problems noted. Denies family history of Myocardial infarction Stroke Social History (Updated 10/12/22 @ 13:28 by Morena Bailey RN) Smoking Status: Former smoker Tobacco Type: Cigarettes packs per day: 1; Cigarettes Per Day: 10; Smoking End Date: 2019; Second Hand Exposure: No; Do You Dip or Chew Tobacco: Yes; Tobacco Cessation Education Requested by Patient: No Hx Alcohol Use: Yes Alcohol type: beer Alcohol Intake Frequency Comment: 2 vodka cranberry drinks maybe 3-4 days a week Hx Substance Use: No Preferred Language: Persian Communication Ability: Effective Visual Impairment: No Limitations Hearing Ability: Normal Automatic Machine Attendant Required: No Beliefs That Will Affect Care: None marital status: Current Living Situation: Spouse Current Living Situation Comment: Lives independently at home with current occupational status: retired How many Children do You have: 3 Other Information That Helps Us Care for You: No Feels Safe at Home: Yes Safety Concerns: Feels Safe At This Time caffeine: Yes (2 cups/day) during the past year weight has: decreased > 10 lbs Dental Care, Regularly: No Seatbelt Use: always Assistive Devices: Denture - Upper, Denture - Lower, Glasses, Nebulizer and Oxygen - Continuous Review of Systems Review of Systems: Per HPI. Physical Exam Physical Exam: The patient is alert and oriented. Mood and affect appeared normal. He answered all questions appropriately. HEENT: Pupils are equal and reactive to light and accommodation. Extraocular movements are intact. The sclerae are anicteric. Neuro: Cranial nerves intact Lungs: Normal respiratory effort. Coarse lung sounds in the right lower lobe and left base. No expiratory wheezing. Prolonged expiratory time. Cardiac: Heart demonstrates a regular rate and rhythm. Normal S1 and S2. No murmurs on examination. Pulses: The patient has palpable radial pulses bilaterally that are equal in intensity Extremities: There was no evidence of hypoperfusion. There is no cyanosis or clubbing. There is no edema. Skin: I did not appreciate any rashes on examination today. Results & Data ([facility]) Vital Signs (Past 12 Hours) Vital Signs Temp Pulse Resp BP Pulse Ox O2 Del Method O2 Flow Rate 10/20/22 08:06 36.9 C 65 18 179/73 H Nebulizer 10/20/22 07:05 75 19 95 Nasal Cannula 5 10/20/22 02:48 37.1 C 70 18 143/67 H 95 Nasal Cannula 5 Laboratory Results Abnormal Lab Results 10/19/22 10/19/22 10/19/22 13:45 13:45 13:45 WBC 10.14 RBC 4.56 L Hgb 12.4 L Hct 39.7 L MCV 87.1 MCH 27.2 MCHC 31.2 L RDW Std Deviation 50.0 H RDW Coeff of Conchis 15.7 H Plt Count 207 MPV 9.7 Immature Gran % (Auto) 0.2 Neut % (Auto) 92.4 Lymph % (Auto) 3.6 [place] % (Auto) 3.3 Eos % (Auto) 0.1 Baso % (Auto) 0.4 Neut # (Auto) 9.38 H Lymph # (Auto) 0.36 L [place] # (Auto) 0.33 Eos # (Auto) 0.01 Baso # (Auto) 0.04 Immature Gran # (Auto) 0.02 PT 11.1 INR 1.0 VBG pH VBG pCO2 VBG pO2 VBG HCO3 VBG O2 Saturation VBG Base Excess Sodium 138 Potassium 4.7 Chloride 105 Carbon Dioxide 28 Anion Gap 5 BUN 29 H Creatinine 1.20 Est Cr Clr Drug Dosing 38.8 Est GFR ( Amer) 61.8 Est GFR (Non-Af Amer) 53.3 BUN/Creatinine Ratio 24.2 H Glucose 94 Lactate Calcium 10.4 H Magnesium 1.8 Total Bilirubin 0.6 Direct Bilirubin 0.1 AST 24 ALT 10 Alkaline Phosphatase 73 Troponin I High Sens 1175.5 H* Total Protein 7.2 Albumin 3.8 Procalcitonin Urine Color Urine Appearance Urine pH Ur Specific [place] Urine Protein Urine Glucose (UA) Urine Ketones Urine Blood Urine Nitrite Urine Bilirubin Urine Urobilinogen Ur Leukocyte Esterase Urine WBC (Auto) Urine RBC (Auto) U Hyaline Cast (Auto) U Epithel Cells (Auto) Urine Bacteria (Auto) Nasal Screen MRSA (PCR) SARS-CoV-2 (PCR) Influenza Type A (PCR) Influenza Type B (PCR) RSV (RT-PCR) 10/19/22 10/19/22 10/19/22 13:45 13:45 13:54 WBC RBC Hgb Hct MCV MCH MCHC RDW Std Deviation RDW Coeff of [place] Plt Count MPV Immature Gran % (Auto) Neut % (Auto) Lymph % (Auto) [place] % (Auto) Eos % (Auto) Baso % (Auto) Neut # (Auto) Lymph # (Auto) [place] # (Auto) Eos # (Auto) Baso # (Auto) Immature Gran # (Auto) PT INR VBG pH VBG pCO2 VBG pO2 VBG HCO3 VBG O2 Saturation VBG Base Excess Sodium Potassium Chloride Carbon Dioxide Anion Gap BUN Creatinine Est Cr Clr Drug Dosing Est GFR ( Amer) Est GFR (Non-Af Amer) BUN/Creatinine Ratio Glucose Lactate 1.9 Calcium Magnesium Total Bilirubin Direct Bilirubin AST ALT Alkaline Phosphatase Troponin I High Sens Total Protein Albumin Procalcitonin 1.40 H Urine Color Urine Appearance Urine pH Ur Specific [place] Urine Protein Urine Glucose (UA) Urine Ketones Urine Blood Urine Nitrite Urine Bilirubin Urine Urobilinogen Ur Leukocyte Esterase Urine WBC (Auto) Urine RBC (Auto) U Hyaline Cast (Auto) U Epithel Cells (Auto) Urine Bacteria (Auto) Nasal Screen MRSA (PCR) SARS-CoV-2 (PCR) NEGATIVE Influenza Type A (PCR) Negative Influenza Type B (PCR) Negative RSV (RT-PCR) Negative 10/19/22 10/19/22 10/19/22 14:25 18:09 20:35 WBC RBC Hgb Hct MCV MCH MCHC RDW Std Deviation RDW Coeff of [place] Plt Count MPV Immature Gran % (Auto) Neut % (Auto) Lymph % (Auto) [place] % (Auto) Eos % (Auto) Baso % (Auto) Neut # (Auto) Lymph # (Auto) [place] # (Auto) Eos # (Auto) Baso # (Auto) Immature Gran # (Auto) PT INR VBG pH 7.43 H VBG pCO2 43 VBG pO2 25 VBG HCO3 29 VBG O2 Saturation < 60.0 VBG Base Excess 3.7 Sodium Potassium Chloride Carbon Dioxide Anion Gap BUN Creatinine Est Cr Clr Drug Dosing Est GFR ( Amer) Est GFR (Non-Af Amer) BUN/Creatinine Ratio Glucose Lactate Calcium Magnesium Total Bilirubin Direct Bilirubin AST ALT Alkaline Phosphatase Troponin I High Sens 1020.5 H* 744.8 H* D Total Protein Albumin Procalcitonin Urine Color Urine Appearance Urine pH Ur Specific [place] Urine Protein Urine Glucose (UA) Urine Ketones Urine Blood Urine Nitrite Urine Bilirubin Urine Urobilinogen Ur Leukocyte Esterase Urine WBC (Auto) Urine RBC (Auto) U Hyaline Cast (Auto) U Epithel Cells (Auto) Urine Bacteria (Auto) Nasal Screen MRSA (PCR) SARS-CoV-2 (PCR) Influenza Type A (PCR) Influenza Type B (PCR) RSV (RT-PCR) 10/20/22 10/20/22 10/20/22 01:42 02:44 09:26 WBC 14.29 H RBC 4.08 L Hgb 10.9 L Hct 35.2 L MCV 86.3 MCH 26.7 MCHC 31.0 L RDW Std Deviation 50.4 H RDW Coeff of [place]chis 16.0 H Plt Count 185 MPV 9.4 Immature Gran % (Auto) 0.2 Neut % (Auto) 89.7 Lymph % (Auto) 5.9 [place] % (Auto) 3.6 Eos % (Auto) 0.2 Baso % (Auto) 0.4 Neut # (Auto) 12.80 H Lymph # (Auto) 0.85 L [place] # (Auto) 0.52 Eos # (Auto) 0.03 Baso # (Auto) 0.06 Immature Gran # (Auto) 0.03 PT INR VBG pH VBG pCO2 VBG pO2 VBG HCO3 VBG O2 Saturation VBG Base Excess Sodium Potassium Chloride Carbon Dioxide Anion Gap BUN Creatinine Est Cr Clr Drug Dosing Est GFR ( Amer) Est GFR (Non-Af Amer) BUN/Creatinine Ratio Glucose Lactate Calcium Magnesium Total Bilirubin Direct Bilirubin AST ALT Alkaline Phosphatase Troponin I High Sens 515.7 H* D Total Protein Albumin Procalcitonin Urine Color Urine Appearance Urine pH Ur Specific [place] Urine Protein Urine Glucose (UA) Urine Ketones Urine Blood Urine Nitrite Urine Bilirubin Urine Urobilinogen Ur Leukocyte Esterase Urine WBC (Auto) Urine RBC (Auto) U Hyaline Cast (Auto) U Epithel Cells (Auto) Urine Bacteria (Auto) Nasal Screen MRSA (PCR) Negative SARS-CoV-2 (PCR) Influenza Type A (PCR) Influenza Type B (PCR) RSV (RT-PCR) 10/20/22 10/20/22 10/20/22 09:26 09:26 Unknown WBC RBC Hgb Hct MCV MCH MCHC RDW Std Deviation RDW Coeff of [place]chis Plt Count MPV Immature Gran % (Auto) Neut % (Auto) Lymph % (Auto) [place] % (Auto) Eos % (Auto) Baso % (Auto) Neut # (Auto) Lymph # (Auto) [place] # (Auto) Eos # (Auto) Baso # (Auto) Immature Gran # (Auto) PT INR VBG pH VBG pCO2 VBG pO2 VBG HCO3 VBG O2 Saturation VBG Base Excess Sodium 137 Potassium 4.5 Chloride 106 Carbon Dioxide 27 Anion Gap 4 BUN 25 H Creatinine 1.35 Est Cr Clr Drug Dosing 34.4 Est GFR ( Amer) 53.6 Est GFR (Non-Af Amer) 46.2 BUN/Creatinine Ratio 18.5 Glucose 125 H Lactate Calcium 9.8 Magnesium Total Bilirubin Direct Bilirubin AST ALT Alkaline Phosphatase Troponin I High Sens 495.1 H* Total Protein Albumin Procalcitonin Urine Color Yellow Urine Appearance Clear Urine pH 5.0 Ur Specific [place] 1.026 Urine Protein Trace H Urine Glucose (UA) Negative Urine Ketones Negative Urine Blood Negative Urine Nitrite Negative Urine Bilirubin Negative Urine Urobilinogen Negative Ur Leukocyte Esterase Negative Urine WBC (Auto) 1-5 Urine RBC (Auto) 0-4 U Hyaline Cast (Auto) 1-5 U Epithel Cells (Auto) 5-10 H Urine Bacteria (Auto) Negative Nasal Screen MRSA (PCR) SARS-CoV-2 (PCR) Influenza Type A (PCR) Influenza Type B (PCR) RSV (RT-PCR) Diagnostic Findings Chest CTA did not demonstrate any pulmonary emboli. Severe emphysema and bibasilar pneumonia. Mediastinal and hilar lymphadenopathy and a 1.7 cm subpleural nodule in the right upper lobe. Dobutamine stress echocardiogram performed 12/22/2020: No evidence of inducible ischemia. Normal LV systolic function with ejection fraction of 55- 60%. Mild mitral regurgitation. PG Care Time/CCT Total # of Minutes Spent Total Time Spent with Patient: Total time spent is greater than 50% in coordination of care (as documented) at patient's floor/unit and/or counseling patient: Coding Level of Care Code 75438 INT INP/OBS CARE 3/75MIN Diagnoses Elevated troponin R77.8
[2022-10-20] MEDS ORDERED: cefTRIAXone SODIUM 1,000 MG in DEXTROSE 5% AD-VAN 50 ML IV SCH (16:00)
--- NOTE | 2022-10-20 16:16 | XCELERA ---
[id number]
[2022-10-20] MEDS: CEFEPIME 2,000 MG in SYRINGE 0 ML IV SCH (18:25)
[2022-10-21] MEDS: DOXYCYCLINE HYCLATE 100 MG in DEXTROSE 5% 100 ML IV SCH (04:03)
[2022-10-21] MEDS: CEFEPIME 2,000 MG in SYRINGE 0 ML IV SCH (06:12)
[2022-10-21] MEDS: SODIUM CHLOR 7% 4 ML NEB INH SCH (07:29)
[2022-10-21] MEDS: ASPIRIN 81 MG ECTAB PO SCH (08:25)
[2022-10-21] MEDS: FINASTERIDE 5 MG TAB PO SCH (08:25)
[2022-10-21] MEDS: METOPROLOL SUCC 50MG EXT REL TAB PO SCH (08:25)
[2022-10-21] MEDS: UMECLIDINIUM/VILANTEROL 62.5/25MCG 7 PUFFS/INHALER INH SCH (08:26)
[2022-10-21] MEDS: FLUTICASONE FUROATE 100MCG 14 PUFFS/INHALER INH SCH (08:28)
--- NOTE | 2022-10-21 09:21 | Hospitalist Progress Note ---
Date of Service October 21, 2022 Assessment & Plan (1) Elevated troponin: Plan: Acute bibasilar pneumonia, significant risk in face of COPD CTA: 1. No pulmonary emboli identified. 2. Severe emphysema with bronchitis and progressively worsened bibasilar predominant pneumonia. 3. Stable mild mediastinal and hilar lymphadenopathy.4. Unchanged 1.7 cm suspicious subpleural nodule within the right upper lobe. - CXR: 1. New nodular density in the left lower lung and airspace opacity in the right lower lung are favored to represent worsening infectious/inflammatory process. Follow-up to resolution is recommended. 2. Redemonstration of right upper lobe pulmonary nodule. This demonstrated FDG uptake on prior PET/CT concerning for malignancy. mildly elevated calcium also Procalcitonin 1.40 Given that patient is on azithromycin suppressive therapy as outpatient concerns of gram negative pneumonia switched to cefepime therapy Sputum culture pending MRSA nares negative Elevated troponin, acute issue, moderate risk, *Myocardial infarction type 2 due to demand ischemia T wave inversion in lateral leads on EKG suggestive of ischemia, no ST segment changes Echo 10/20/2022 shows preserved ejection fraction evidence of pulmonary hypertension with increased right heart pressures Dobutamine stress echo 12/2020 negative for ischemia at 92% MPHR, no induced chest pain/EKG changes. Last echo prior 2019 with EF 60-65%, type I diastolic dysfunction NSVT chronic stable continue medical management On metoprolol. Up titration has been limited in the past by sinus bradycardia, however he has done well on current dose. History of aortic aneurysm repair Periodic outpatient follow-up, no acute change COPD with emphysema chronic and severe, 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 Continue Trelegy/formulary equivalent change suppressive azithromycin MWF to acute antibiotics treatment Last PFT 02/2022 FVC 92%, FEV1 57%, FEV1/FVC 43%, DLCO 60% - 3L baseline oxygen requirement, has returned to baseline now hypercalcemia with concern for malignancy, will check pTh RP this is a reference lab send out Pulmonary nodule PET positive, followed at conference with a 0.5 cm growth over 2 years BPH with LUTS chronic and stable Continue finasteride He is pending SBRT after review 10/13/2022 DVT prophylaxis: heparin subcu Disposition: Telemetry for pneumonia with cardiac eval, history of NSVT CODE STATUS: Full code (2) AAA (abdominal aortic aneurysm): (3) CKD (chronic kidney disease), stage III: (4) NSVT (nonsustained ventricular tachycardia): (5) Hypoxia: (6) BPH w urinary obs/LUTS: Admission and Anticipated Discharge Date Admission Date: October 19, 2022 Results & Data Results & Data [facility]) Vital Signs (Past 12 Hours) Vital Signs Temp Pulse Pulse Resp BP Pulse Ox O2 Del Method 10/21/22 08:48 97.9 F 63 18 121/68 93 Nasal Cannula 10/21/22 07:30 61 18 93 Nasal Cannula 10/21/22 02:48 98.8 F 63 18 118/65 93 Nasal Cannula 10/20/22 22:03 72 10/20/22 22:53 98.8 F 67 16 124/64 95 Nasal Cannula O2 Flow Rate 10/21/22 08:48 3 10/21/22 07:30 2 10/21/22 02:48 2 10/20/22 22:03 10/20/22 22:53 2 PG Care Time/CCT Total # of Minutes Spent Total Time Spent with Patient: Total time spent is greater than 50% in coordination of care (as documented) at patient's floor/unit and/or counseling patient: Coding Diagnoses Elevated troponin R77.8 AAA (abdominal aortic aneurysm) I71.4 CKD (chronic kidney disease), stage III N18.30 NSVT (nonsustained ventricular tachycardia) I47.2 Hypoxia R09.02 BPH w urinary obs/LUTS N40.1; N13.8
[2022-10-21 10:08] LABS: Hematocrit (blood only) 31.4 % (42.0-52.0); Hemoglobin 9.9 g/dl (14.0-18.0); Mean Corpuscular Hemoglobin 27.3 pg (25.0-34.0); Mean Corpuscular Hgb Conc 31.5 g/dL (32.0-36.0); Mean Corpuscular Volume 86.7 fL (80.0-100.0); Mean Platelet Volume 9.8 fL (9.4-12.4); Platelet Count 155 K/uL (130-400); RDW Coefficient of Variation 15.9 % (11.5-14.5); RDW Standard Deviation 50.6 fL (36.4-46.3); Red Blood Count 3.62 M/uL (4.70-6.10); White Blood Count 10.49 K/ul (4.8-10.8)
[2022-10-21 10:33] LABS: BUN Creatinine Ratio 19.9 (10-20); Calcium 9.9 mg/dl (8.5-10.1); Creatinine Clr Calc Pharmacy 34.2 ml/min; Est GFR (African American) 53.1 ml/min; Est GFR (Non-African American) 45.8 ml/min; Potassium 3.9 mmol/L (3.5-5.1)
--- NOTE | 2022-10-21 17:16 | Discharge Summary ---
Date of Service October 21, 2022 Admission HPI Per Admitting Provider Mr. Chavez is an 87-year-old male with a past medical history of COPD, hypertension, hyperlipidemia presents with cough and chills for 2 days. Found to be hypoxic in the ER. 1 day of shortness of breath, general weakness, and 'shakiness' with cough. No chest pain. Endorses chest pressure in his sterum around 8:30pm last night. Went away after a half an hour. No prior chest pain/pressure. Highest level of exertion is going up and down stairs to his basement, does not get chest pain/chest pressure with this. Is chronically somewhat short of breath, this has not changed recently. +sputum production with cough, less yesterday but has been more yellow-green 'mustardy' color lately. Is usually somwhat yellow and is followed by pulmonary. Pending beam radiation, has not had this started yet for pulm nodule. o history of CO. No hx of stents. No history of Diabetes Hx of borderline HTN, normally well controlled. Is on MTP for NSVT not HTN per pt No FHx of early CO Takes a daily aspirin Medical History: Reviewed Medications: Reviewed Surgical History: Reviewed Allergies: Reviewed Social History: No current tobacco use, quit Oct 1999. Etoh ~2 drinks every few days. Code Status: Full Code Principal Diagnosis Bibasilar pneumonia Elevated troponin with myocardial infarction type II due to demand ischemia Discharge Exam Patient looks improved Has unlabored respirations still with bibasilar rhonchi but much less than 1 day prior Her exam is regular with a systolic murmur Extremities are with trace edema Discharge Data Allergies Allergy/AdvReac Type Severity Reaction Status Date / Time roflumilast [From [facility]] Allergy Intermediate rash Verified 10/19/22 15:03 Consultations 10/19/22 16:38 ED Decision to Admit Stat 10/19/22 20:22 Consult Cardiology Routine Ordered Studies 10/19/22 15:07 CT angio chest PE protocol Stat Hospital Course (1) Elevated troponin: Acute bibasilar pneumonia, significant risk in face of COPD CTA: 1. No pulmonary emboli identified. 2. Severe emphysema with bronchitis and progressively worsened bibasilar predominant pneumonia. 3. Stable mild mediastinal and hilar lymphadenopathy.4. Unchanged 1.7 cm suspicious subpleural nodule within the right upper lobe. - CXR: 1. New nodular density in the left lower lung and airspace opacity in the right lower lung are favored to represent worsening infectious/inflammatory process. Follow-up to resolution is recommended. 2. Redemonstration of right upper lobe pulmonary nodule. This demonstrated FDG uptake on prior PET/CT concerning for malignancy. mildly elevated calcium also Procalcitonin 1.40 Given that patient is on azithromycin suppressive therapy as outpatient concerns of gram negative pneumonia switched to doxycycline for home treatment 100 twice daily Sputum culture polymicrobial suspect contamination MRSA nares negative Elevated troponin, acute issue, moderate risk, *Myocardial infarction type 2 due to demand ischemia Cardiology consultation does not wish for any other invasive testing or further restratification Echo 10/20/2022 shows preserved ejection fraction evidence of pulmonary hypertension with increased right heart pressures NSVT chronic stable continue medical management Discharged on home metoprolol dosing History of aortic aneurysm repair Periodic outpatient follow-up, no acute change COPD with emphysema chronic and severe, 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 Continue Trelegy/formulary equivalent change suppressive azithromycin MWF to acute antibiotics treatment Last PFT 02/2022 FVC 92%, FEV1 57%, FEV1/FVC 43%, DLCO 60% - 3L baseline oxygen requirement, has returned to baseline now hypercalcemia with concern for malignancy, will check pTh RP this is a reference lab send out Pulmonary nodule PET positive, followed at conference with a 0.5 cm growth over 2 years patient is reportedly set up to have outpatient radiation therapy consideration BPH with LUTS chronic and stable Continue finasteride He is pending SBRT after review 10/13/2022 DVT prophylaxis: heparin subcu Disposition: Telemetry for pneumonia with cardiac eval, history of NSVT CODE STATUS: Full code (2) AAA (abdominal aortic aneurysm): (3) CKD (chronic kidney disease), stage III: (4) NSVT (nonsustained ventricular tachycardia): (5) Hypoxia: (6) BPH w urinary obs/LUTS: Total Time Total Time Spent Total Time Spent (In Minutes): It required greater than 30 minutes to prepare this patient for discharge Discharge Plan Discharge Items Patient Disposition: Home - Self-Care Reason For Visit: BIBASILAR PNEMONIA, TROP Discharge Diagnosis: pneumonia heart strain from illness pulmonary nodule Activity: Resume your previous activity Activity Comment: gradually increase activity Non-emergency contact: Primary Care Provider and Glove Stitcher Call non-emergency contact if: your symptoms worsen Follow-up/Referrals: Joanne Cross PA-C [Physician Sand Cutter Operator] - 10/26/22 11:45 am Diet: Regular Addtl Attending Provider Instructions: please complete all of your antibiotics with some food, please start tonight 10/21/22. Please do not restart your azithromycin until after your finished your doxycycline consider eating yogurt or cottage cheese to help your Gi system continue your flutter valve( the green plastic device) as long as it helps you bring up mucus follow up with Dr Alonzo Pending Studies at Discharge: No Stand-Alone Forms: My [facility], Smoking Cessation Medications and DC Order Prescriptions: New doxycycline hyclate 100 mg capsule 100 mg PO BID 7 Days Qty: 15 0RF Continued azithromycin 250 mg tablet 250 mg PO .Three times/week Rx Instructions: start on day 2 of therapy ginkgo biloba leaf extract 60 mg capsule 60 mg PO DAILY Rx Instructions: give with meal/snack saw palmetto 450 mg capsule 450 mg PO BID Rx Instructions: give with food (meal/snack) guaifenesin [Mucinex] 600 mg tablet extended release 12hr 600 mg PO BID Qty: 180 1RF albuterol sulfate [ProAir HFA] 90 mcg/actuation HFA aerosol inhaler 2 puff inhalation Q6H PRN (Reason: Shortness Of Breath) Qty: 3 1RF (DME) Portable Oxygen Misc See Rx Instructions .MEDSUPPLY Qty: 1 0RF Rx Instructions: Pt may increase O2 to 3lpm via nc PRN to maintain O2 Sat above 88% WILIAN 99 Trelegy Ellipta 100-62.5-25 mcg blister with device 1 inh inhalation DAILY Qty: 3 1RF finasteride 5 mg tablet 5 mg PO DAILY Qty: 90 3RF ipratropium-albuterol 0.5 mg-3 mg(2.5 mg base)/3 mL solution for nebulization 3 ml inhalation Q8H PRN (Reason: shortness of breath or wheezing) Qty: 180 5RF glucosamine-chondroitin [Osteo Bi-Flex] 250-200 mg tablet 2 tab PO QAM Rx Instructions: give after food/meal (DME) Flutter Valve Device See Rx Instructions .MEDSUPPLY Qty: 1 0RF Rx Instructions: Use it every 6 hours when awake. metoprolol succinate 50 mg tablet extended release 24 hr 50 mg PO DAILY Qty: 90 3RF (DME) Flutter Valve Device See Rx Instructions .MEDSUPPLY Qty: 1 0RF Rx Instructions: Use it every 6 hours when awake. omega-3 acid ethyl esters 1 gram capsule 1 cap PO QAM (DME) nebulizers Misc See Rx Instructions miscellaneous .MEDSUPPLY Qty: 1 0RF Rx Instructions: Use BID with saline in the nebulizer and as directed. Lifetime need. sodium chloride 7 % solution for nebulization 4 ml INHALATION BID Qty: 240 8RF green tea leaf extract [Green Tea] 250 mg Capsule 500 mg PO QAM Centrum Silver Ultra Men's 300-600-300 mcg Tablet 1 tab PO QAM aspirin [Pablo Low Dose Aspirin] 81 mg Tablet,Delayed Release (Dr/Ec) 81 mg PO QAM Discharge Orders: Discharge Order (Routine); Ordered 10/21/22 Ordered By: Jean Paul Dutta Admission Data Admit Date/Time: 10/19/22 17:38 Attending Provider: Jean Paul Dutta Admit Provider: Ignacio Cunningham Primary Care Provider: Ignacio Alonzo Other Providers: Ignacio Cunningham ; Vamsi Elam ; [facility] Other Interventions: Discharge Summary Assessment (RN) Last Done: 10/21/22 14:02 Coding Level of Care Code HOSP INP/OBS DISCH >30 MIN Diagnoses Elevated troponin R77.8 AAA (abdominal aortic aneurysm) I71.4 CKD (chronic kidney disease), stage III N18.30 NSVT (nonsustained ventricular tachycardia) I47.2 Hypoxia R09.02 BPH w urinary obs/LUTS N40.1; N13.8
== END 2022-10-21 14:31 | disposition home health service (06) | DRG 193 ==
LOC: ED 13:16 → SUATTDRO 17:38 → 4W 17:38

== ENCOUNTER 2023-05-09 11:59 | Inpatient (IN) ==
--- NOTE | 2023-05-09 12:39 | XRay Report ---
XR chest 1V not portable HISTORY: Chest pain, nonspecific COMPARISON: Chest CT 03/06/2023 and chest x-ray 02/11/2023. FINDINGS: Emphysema again noted. No pneumothorax. There are old, healed left-sided rib fractures. A c alcified granuloma again noted within the left midlung zone. The heart is normal in size. Patchy biba silar densities have slightly progressed. Small peripheral airspace opacity within the right upper lo be has also slightly progressed. IMPRESSION: Interval progression of the patchy bibasilar airspace opacities and a small peripheral right upper lo be airspace opacity. This is consistent with a progressive pneumonia. This could be due to aspiration . ACT 112: Negative or not required by law. Electronically signed by: Des Ware M.D. 05/09/2023 12:38 PM
[2023-05-09 12:53] LABS: Basophils # (auto) 0.06 K/uL (0.00-0.20); Eosinophils # (auto) 0.32 K/uL (0.00-0.50); Eosinophils % (auto) 5.4 %; Hematocrit (blood only) 35.5 % (42.0-52.0); Hemoglobin 10.5 g/dl (14.0-18.0); Immature Granulocytes # (auto) 0.02 K/uL (0.01-0.20); Immature Granulocytes % (auto) 0.3 %; Lymphocytes # (auto) 0.89 K/uL (1.20-3.40); Lymphocytes % (auto) 14.9 %; Mean Corpuscular Hemoglobin 23.1 pg (25.0-34.0); Mean Corpuscular Hgb Conc 29.6 g/dL (32.0-36.0); Mean Corpuscular Volume 78.2 fL (80.0-100.0); Mean Platelet Volume 10.3 fL (9.4-12.4); Monocytes # (auto) 0.46 K/uL (0.11-0.59); Monocytes % (auto) 7.7 %; Neutrophils # (auto) 4.23 K/uL (1.40-6.50); Neutrophils % (auto) 70.7 %; Platelet Count 161 K/uL (130-400); RDW Coefficient of Variation 19.3 % (11.5-14.5); RDW Standard Deviation 54.6 fL (36.4-46.3); Red Blood Count 4.54 M/uL (4.70-6.10); White Blood Count 5.98 K/ul (4.8-10.8)
[2023-05-09 13:03] LABS: Partial Thromboplastin Ratio 0.9; Partial Thromboplastin Time 26.5 Seconds (21.0-31.0)
[2023-05-09 13:10] LABS: Alanine Aminotransferase 20 U/L (7-52); Albumin Globulin Ratio 0.9 (0.9-2); Albumin Level 3.5 gm/dl (3.4-5.0); Alkaline Phosphatase 82 U/L (34-104); Anion Gap 4 (3-11); Aspartate Aminotransferase 26 U/L (13-39); BUN Creatinine Ratio 20.6 (10-20); Bilirubin,Total 0.4 mg/dl (0.2-1.0); Blood Urea Nitrogen 26 mg/dl (6-23); Calcium 10.9 mg/dl (8.6-10.3); Carbon Dioxide 25 mmol/L (21-32); Chloride 110 mmol/L (98-107); Creatinine Clr Calc Pharmacy 33.5 ml/min; Est GFR (African American) 58.2 ml/min; Est GFR (Non-African American) 50.2 ml/min; Globulin 3.7 gm/dl (2.5-4.0); Glucose 143 mg/dl (70-99(Fasting)); Potassium 4.4 mmol/L (3.5-5.1); Sodium 139 mmol/L (136-145); Total Protein 7.2 gm/dl (6.0-8.3)
[2023-05-09 13:18] LABS: Troponin I High Sensitivity 95.1 pg/ml (0-20)
--- NOTE | 2023-05-09 13:33 | Emergency Department Note ---
Impression & Plan Bilateral pneumonia, Hypoxia, COPD (chronic obstructive pulmonary disease), Cough with hemoptysis ED Provider Note NAME: RETA HINOJOSA AGE: 87 SEX: M : 1935 ARRIVES VIA: Walk-In INFORMANT: Patient, ED PROVIDER(S): Samm Cherry DO CHIEF COMPLAINT: Difficulty breathing HPI: The patient is an 87-year-old male who presented to the emergency department for an evaluation of difficulty breathing. The patient has a history of COPD. He wears supplemental oxygen. The patient states he started having coughing over the last 3 to 4 days. He has not been feeling well. He has not been seen by his family doctor or his primary pulmonary doctor. He started coughing up blood this morning. He came to the emergency department for further evaluation. He was concerned about pneumonia. He denies having any leg swelling or leg pain. ROS: See above HPI for pertinent positives & negatives. A total of 10 systems reviewed and were otherwise negative. PAST MEDICAL HISTORY: See Below PAST SURGICAL HISTORY: See Below FAMILY HISTORY: See Below SOCIAL HISTORY: See Below HOME MEDICATIONS: See Below ALLERGIES: See Below VITALS: See Below PHYSICAL EXAMINATION: GENERAL: The patient is awake and alert. He is somewhat frail appearing. EYES: The conjunctivae are clear. The pupils are round and reactive. EARS, NOSE, MOUTH AND THROAT: The nose is without any evidence of any deformity. NECK: The neck is nontender and supple. RESPIRATORY: Diminished breath sounds are noted throughout. Expiratory wheezing was noted in all lung rivera. There was mild conversational dyspnea. CARDIOVASCULAR: Regular rate and rhythm noted there no murmurs rubs or gallops normal S1 normal S2. GASTROINTESTINAL: The abdomen is soft. Abdomen is nontender. MUSCULOSKELETAL/EXTREMITIES: There is no evidence of gross deformity full range of motion is noted in the hips and shoulders. SKIN: There is no obvious evidence of any rash. There are no petechiae, pallor or cyanosis noted. NEUROLOGIC: Patient is awake alert and oriented x3 MEDICAL DECISION MAKING: The patient is an 87-year-old male who presented to the emergency department for an evaluation of cough and hemoptysis. The patient does have a history of underlying COPD. He also has a history of pneumonia in the past. Because his EKG was abnormal and I do feel the patient requires further work-up such as CT angiography to ensure that his hemoptysis was not secondary to venous thromboembolic disease. It also help define the nature of the pneumonia noted on CAT scan. The patient was treated with IV antibiotics. He was also treated with IV steroids and DuoNeb therapy. He was initially hypoxic but he does wear supplemental oxygen. I discussed the patient's laboratory and radiographic studies with him. I also discussed his case with the on-call [facility]ist. They have agreed to evaluate the patient in the emergency department for further management and disposition. Triage Nursing notes reviewed. Prior medical records reviewed Vital Signs: reviewed and remarkable for initial hypoxia and bradycardia. Differential diagnosis: Reactive airway disease, pneumonia, pneumothorax, COPD, CHF, infections, cardiac ischemia, pulmonary embolism, musculoskeletal, gastrointestinal, as well as other pathologies. ER treatment provided: See below Diagnostics interpreted by me: ECG: EKG was obtained in the emergency department. My interpretation is sinus bradycardia 51 bpm. There is no ectopy. There is no acute ST segment abnormalities noted. This was compared to a tracing from February 11, 2023. No changes were noted. Cardiac Monitoring: An order was placed for continuous cardiac monitoring. The monitor shows a rate of 56 bpm with sinus bradycardia. Laboratory studies: As stated above and show below. Imaging studies: See below. Radiographic imaging was reviewed by myself Consultation(s): I discussed this case with Dr. Khan who is on-call for the [facility]ist group. ED COURSE: Procedures: none Critical Care: I have personally spent greater than 35 minutes of critical care time in the direct management of this patient. This includes bedside care, interpretation of diagnostic studies, and testing, discussion with consultants, patient, and family members, and other required patient management activities. This 35 minutes is in excess of all separately billable procedures. Past Med/Surg History Medical History AAA (abdominal aortic aneurysm) Aorto-iliac disease BPH (benign prostatic hyperplasia) Chest pain Chronic cough Chronic obstructive pulmonary disease follows [facility]. rarely uses rescue inh CKD (chronic kidney disease), stage III CKD (chronic kidney disease), stage III COPD (chronic obstructive pulmonary disease) Glaucoma of both eyes HTN (hypertension) Hyperlipidemia Hypertension Hypoxia NSVT (nonsustained ventricular tachycardia) pt unaware of this Osteoarthritis Sinus bradycardia Solitary pulmonary nodule follows [facility] [place] Surgical History H/O aortic aneurysm repair Oct 1999- suzy romero / kye [facility] History of AAA (abdominal aortic aneurysm) repair History of back surgery L4-L5 History of cataract surgery LEFT History of colonoscopy History of herniorrhaphy Right groin History of lumbar laminectomy Inguinal hernia Family History Brother Medical history unknown Mother , 96yo Natural with unknown cause Hypertension Father , in his 50s Emphysema lung Son No problems noted. Son No problems noted. Son No problems noted. 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 Beliefs That Will Affect Care: None marital status: Current Living Situation: Spouse Current Living Situation Comment: Lives independently at home with current occupational status: retired How many Children do You have: 3 Feels Safe at Home: Yes Childhood Exposure to Second-Hand Smoke: Yes Diet: regular caffeine: Yes during the past year weight has: decreased > 10 lbs Dental Care, Regularly: No Physical Activity Frequency: Does not Exercise Seatbelt Use: always Sunscreen Use: Yes Assistive Devices: Oxygen - at Night Allergies Allergies Allergy/AdvReac Type Severity Reaction Status Date / Time roflumilast [From Dalires] Allergy Intermediate rash Verified 05/09/23 15:12 Home Meds Home Medications Medication Instructions Recorded Confirmed omega-3 acid ethyl esters 1 gram 1 cap PO QAM 05/17/19 05/09/23 capsule green tea leaf extract 250 mg 500 mg PO QAM 01/18/20 05/09/23 capsule (Green Tea) ubunyrfh-mh-[id number] 300 mcg-K 60 1 tab PO QAM 05/16/20 09/05/23 mcg-lycop 600 mcg-lutein 300 mcg tablet (Centrum Silver Ultra Men's) glucosamine-chondroitin 250 mg-200 2 tab PO QAM 11/11/20 05/09/23 mg tablet (Osteo Bi-Flex) diclofenac sodium 1 % topical gel 4 g topical QID PRN Pain 03/16/23 05/09/23 Previous Rx's Medication Instructions Recorded guaifenesin 600 mg tablet, 600 mg PO BID #180 tabs 12/12/19 extended release 12 hr (Mucinex) nebulizers #1 ea 07/08/20 Flutter Valve #1 ea 03/10/21 albuterol sulfate 90 mcg/actuation 2 puff inhalation Q6H PRN 12/29/21 aerosol inhaler (ProAir HFA) Shortness Of Breath #3 Inhalers Portable Oxygen #1 ea 06/06/22 Flutter Valve #1 ea 09/16/22 metoprolol succinate 50 mg 50 mg PO DAILY #90 tabs 11/29/22 tablet,extended release 24 hr fluticasone fur. 100 mcg-umeclid 1 inh inhalation DAILY #3 Inhalers 12/07/22 62.5 mcg-vilant 25 mcg inhalat.powder (Trelegy Ellipta) finasteride 5 mg tablet 5 mg PO DAILY #90 tabs 01/19/23 colchicine (gout) 0.6 mg capsule 0.6 mg PO BID #14 caps 03/06/23 pantoprazole 40 mg tablet,delayed 40 mg PO DAILY #30 tabs 03/16/23 release sodium chloride 3 % for 4 ml inhalation BID secretions 03/27/23 nebulization #240 mL ipratropium 0.5 mg-albuterol 3 mg 3 ml inhalation Q8H PRN shortness 04/04/23 (2.5 mg base)/3 mL nebulization of breath or wheezing #180 mL soln Results & Data (ED) Vital Signs Vital Signs - 24 hr 05/09/23 12:01 05/09/23 14:08 05/09/23 14:12 Pulse Rate 79 55 L Pulse Rate [Apical] 55 L Pulse Rate from SpO2 Sensor Pulse Rhythm Regular Pulse Rhythm [Apical] Regular Pulse Strength Normal Respiratory Rate 18 16 Respiratory Effort / Characteristics Non-Labored Spontaneous Respiratory Depth Normal Respiratory Pattern Regular Blood Pressure 158/75 H Blood Pressure [Left Arm] Blood Pressure Mean 102 Blood Pressure Mean [Left Arm] Blood Pressure Position Sitting Pulse Oximetry 88 L 98 Oxygen Delivery Method Nasal Cannula Oxygen Flow Rate Sepsis Recent Fever Within 48 Hours No Sepsis New/Unexplained Change in Mental Status No Sepsis Action Taken by Nursing No Action Required 05/09/23 14:15 05/09/23 14:15 05/09/23 14:16 Pulse Rate Pulse Rate [Apical] 58 L Pulse Rate from SpO2 Sensor Pulse Rhythm Pulse Rhythm [Apical] Pulse Strength Respiratory Rate 16 Respiratory Effort / Characteristics Respiratory Depth Respiratory Pattern Blood Pressure Blood Pressure [Left Arm] Blood Pressure Mean Blood Pressure Mean [Left Arm] Blood Pressure Position Pulse Oximetry 98 96 Oxygen Delivery Method Nasal Cannula Nasal Cannula Nasal Cannula Oxygen Flow Rate 3 3 Sepsis Recent Fever Within 48 Hours Sepsis New/Unexplained Change in Mental Status Sepsis Action Taken by Nursing 05/09/23 14:16 05/09/23 15:31 05/09/23 13:51 Pulse Rate 54 L Pulse Rate [Apical] 56 L Pulse Rate from SpO2 Sensor 54 L Pulse Rhythm Pulse Rhythm [Apical] Pulse Strength Respiratory Rate 20 23 Respiratory Effort / Characteristics Respiratory Depth Respiratory Pattern Blood Pressure Blood Pressure [Left Arm] 165/78 H Blood Pressure Mean Blood Pressure Mean [Left Arm] 107 Blood Pressure Position Pulse Oximetry 98 94 Oxygen Delivery Method Nasal Cannula Nasal Cannula Oxygen Flow Rate 3 3 Sepsis Recent Fever Within 48 Hours Sepsis New/Unexplained Change in Mental Status Sepsis Action Taken by Nursing 05/09/23 14:00 05/09/23 14:00 05/09/23 14:10 Pulse Rate 57 L 53 L Pulse Rate [Apical] Pulse Rate from SpO2 Sensor 53 L 53 L Pulse Rhythm Pulse Rhythm [Apical] Pulse Strength Respiratory Rate 23 22 Respiratory Effort / Characteristics Respiratory Depth Respiratory Pattern Blood Pressure 150/82 H Blood Pressure [Left Arm] Blood Pressure Mean 117 Blood Pressure Mean [Left Arm] Blood Pressure Position Pulse Oximetry 96 98 Oxygen Delivery Method Oxygen Flow Rate Sepsis Recent Fever Within 48 Hours Sepsis New/Unexplained Change in Mental Status Sepsis Action Taken by Nursing 05/09/23 14:11 05/09/23 15:31 05/09/23 15:32 Pulse Rate 59 L Pulse Rate [Apical] Pulse Rate from SpO2 Sensor 61 Pulse Rhythm Pulse Rhythm [Apical] Pulse Strength Respiratory Rate 21 Respiratory Effort / Characteristics Respiratory Depth Respiratory Pattern Blood Pressure 165/78 H Blood Pressure [Left Arm] Blood Pressure Mean 105 Blood Pressure Mean [Left Arm] Blood Pressure Position Pulse Oximetry 100 Oxygen Delivery Method Oxygen Flow Rate Sepsis Recent Fever Within 48 Hours Sepsis New/Unexplained Change in Mental Status Sepsis Action Taken by Nursing 05/09/23 15:40 05/09/23 15:45 05/09/23 15:45 Pulse Rate Pulse Rate [Apical] Pulse Rate from SpO2 Sensor 52 L 55 L Pulse Rhythm Pulse Rhythm [Apical] Pulse Strength Respiratory Rate Respiratory Effort / Characteristics Respiratory Depth Respiratory Pattern Blood Pressure 168/88 H Blood Pressure [Left Arm] Blood Pressure Mean 114 Blood Pressure Mean [Left Arm] Blood Pressure Position Pulse Oximetry 99 99 Oxygen Delivery Method Oxygen Flow Rate Sepsis Recent Fever Within 48 Hours Sepsis New/Unexplained Change in Mental Status Sepsis Action Taken by Nursing 05/09/23 15:50 05/09/23 16:12 05/09/23 16:20 Pulse Rate Pulse Rate [Apical] Pulse Rate from SpO2 Sensor 57 L 53 L 52 L Pulse Rhythm Pulse Rhythm [Apical] Pulse Strength Respiratory Rate Respiratory Effort / Characteristics Respiratory Depth Respiratory Pattern Blood Pressure Blood Pressure [Left Arm] Blood Pressure Mean Blood Pressure Mean [Left Arm] Blood Pressure Position Pulse Oximetry 99 97 97 Oxygen Delivery Method Oxygen Flow Rate Sepsis Recent Fever Within 48 Hours Sepsis New/Unexplained Change in Mental Status Sepsis Action Taken by Nursing 05/09/23 16:30 Pulse Rate Pulse Rate [Apical] Pulse Rate from SpO2 Sensor 50 L Pulse Rhythm Pulse Rhythm [Apical] Pulse Strength Respiratory Rate Respiratory Effort / Characteristics Respiratory Depth Respiratory Pattern Blood Pressure Blood Pressure [Left Arm] Blood Pressure Mean Blood Pressure Mean [Left Arm] Blood Pressure Position Pulse Oximetry 99 Oxygen Delivery Method Oxygen Flow Rate Sepsis Recent Fever Within 48 Hours Sepsis New/Unexplained Change in Mental Status Sepsis Action Taken by [facility] Medications Current Medication List: was personally reviewed by me Laboratory Data Attestation: I reviewed the patient's lab results. 05/09/23 12:16 05/09/23 12:16 Lab Results 05/09/23 05/09/23 05/09/23 Range/Units 12:16 12:16 12:16 WBC 5.98 (4.8-10.8) K/ul RBC 4.54 L (4.70-6.10) M/uL Hgb 10.5 L (14.0-18.0) g/dl Hct 35.5 L (42.0-52.0) % MCV 78.2 L (80.0-100.0) fL MCH 23.1 L (25.0-34.0) pg MCHC 29.6 L (32.0-36.0) g/dL RDW Std Deviation 54.6 H (36.4-46.3) fL RDW Coeff of Conchis 19.3 H (11.5-14.5) % Plt Count 161 (130-400) K/uL MPV 10.3 (9.4-12.4) fL Immature Gran % (Auto) 0.3 % Neut % (Auto) 70.7 % Lymph % (Auto) 14.9 % [place] % (Auto) 7.7 % Eos % (Auto) 5.4 % Baso % (Auto) 1.0 % Neut # (Auto) 4.23 (1.40-6.50) K/uL Lymph # (Auto) 0.89 L (1.20-3.40) K/uL [place] # (Auto) 0.46 (0.11-0.59) K/uL Eos # (Auto) 0.32 (0.00-0.50) K/uL Baso # (Auto) 0.06 (0.00-0.20) K/uL Immature Gran # (Auto) 0.02 (0.01-0.20) K/uL PT 11.0 (9.0-12.0) Seconds INR 1.0 (0.9-1.1) APTT 26.5 (21.0-31.0) Seconds PTT Ratio 0.9 VBG pH (7.36-7.41) VBG pCO2 (38-50) mmHg VBG pO2 mmHg VBG HCO3 mmol/L VBG O2 Saturation % VBG Base Excess mEq/L Sodium 139 (136-145) mmol/L Potassium 4.4 (3.5-5.1) mmol/L Chloride 110 H (98-107) mmol/L Carbon Dioxide 25 (21-32) mmol/L Anion Gap 4 (3-11) BUN 26 H (6-23) mg/dl Creatinine 1.26 (0.6-1.4) mg/dl Est Cr Clr Drug Dosing 33.5 ml/min Est GFR ( Amer) 58.2 ml/min Est GFR (Non-Af Amer) 50.2 ml/min BUN/Creatinine Ratio 20.6 H (10-20) Glucose 143 H (70-99(Fasting)) mg/dl Lactate (0.4-2.0) mmol/L Calcium 10.9 H (8.6-10.3) mg/dl Magnesium (1.7-2.4) mg/dl Total Bilirubin 0.4 (0.2-1.0) mg/dl AST 26 (13-39) U/L ALT 20 (7-52) U/L Alkaline Phosphatase 82 (34-104) U/L Troponin I High Sens 95.1 H* (0-20) pg/ml C-Reactive Protein (0-0.5) mg/dl B-Natriuretic Peptide (0-100) pg/ml Total Protein 7.2 (6.0-8.3) gm/dl Albumin 3.5 (3.4-5.0) gm/dl Globulin 3.7 (2.5-4.0) gm/dl Albumin/Globulin Ratio 0.9 (0.9-2) Procalcitonin (0-0.5) ng/ml Adenovirus (PCR) (NotDetected) B. pertussis DNA (PCR) (NotDetected) B.parapertussis DNA PCR (NotDetected) C. pneumoniae DNA (PCR) (NotDetected) Coronavirus OC43 (PCR) (NotDetected) Coronavirus HKU1 (PCR) (NotDetected) Coronavirus 229E (PCR) (NotDetected) SARS-CoV-2 (PCR) (NotDetected) Coronavirus NL63 (PCR) (NotDetected) Human Metapneumovir PCR (NotDetected) Influenza Type A (PCR) (NotDetected) Influenza Type B (PCR) (NotDetected) M. pneumoniae (PCR) (NotDetected) Parainfluenza 1 (PCR) (NotDetected) Parainfluenza 2 (PCR) (NotDetected) Parainfluenza 3 (PCR) (NotDetected) Parainfluenza 4 (PCR) (NotDetected) RSV (PCR) (NotDetected) Entero/Rhino (PCR) (NotDetected) 05/09/23 05/09/23 05/09/23 Range/Units 15:06 15:06 15:06 WBC (4.8-10.8) K/ul RBC (4.70-6.10) M/uL Hgb (14.0-18.0) g/dl Hct (42.0-52.0) % MCV (80.0-100.0) fL MCH (25.0-34.0) pg MCHC (32.0-36.0) g/dL RDW Std Deviation (36.4-46.3) fL RDW Coeff of Conchis (11.5-14.5) % Plt Count (130-400) K/uL MPV (9.4-12.4) fL Immature Gran % (Auto) % Neut % (Auto) % Lymph % (Auto) % [place] % (Auto) % Eos % (Auto) % Baso % (Auto) % Neut # (Auto) (1.40-6.50) K/uL Lymph # (Auto) (1.20-3.40) K/uL [place] # (Auto) (0.11-0.59) K/uL Eos # (Auto) (0.00-0.50) K/uL Baso # (Auto) (0.00-0.20) K/uL Immature Gran # (Auto) (0.01-0.20) K/uL PT (9.0-12.0) Seconds INR (0.9-1.1) APTT (21.0-31.0) Seconds PTT Ratio VBG pH 7.34 L (7.36-7.41) VBG pCO2 51 H (38-50) mmHg VBG pO2 26 mmHg VBG HCO3 28 mmol/L VBG O2 Saturation < 60.0 % VBG Base Excess 0.9 mEq/L Sodium (136-145) mmol/L Potassium (3.5-5.1) mmol/L Chloride (98-107) mmol/L Carbon Dioxide (21-32) mmol/L Anion Gap (3-11) BUN (6-23) mg/dl Creatinine (0.6-1.4) mg/dl Est Cr Clr Drug Dosing ml/min Est GFR ( Amer) ml/min Est GFR (Non-Af Amer) ml/min BUN/Creatinine Ratio (10-20) Glucose (70-99(Fasting)) mg/dl Lactate 0.8 (0.4-2.0) mmol/L Calcium (8.6-10.3) mg/dl Magnesium (1.7-2.4) mg/dl Total Bilirubin (0.2-1.0) mg/dl AST (13-39) U/L ALT (7-52) U/L Alkaline Phosphatase (34-104) U/L Troponin I High Sens (0-20) pg/ml C-Reactive Protein (0-0.5) mg/dl B-Natriuretic Peptide 150 H (0-100) pg/ml Total Protein (6.0-8.3) gm/dl Albumin (3.4-5.0) gm/dl Globulin (2.5-4.0) gm/dl Albumin/Globulin Ratio (0.9-2) Procalcitonin (0-0.5) ng/ml Adenovirus (PCR) (NotDetected) B. pertussis DNA (PCR) (NotDetected) B.parapertussis DNA PCR (NotDetected) C. pneumoniae DNA (PCR) (NotDetected) Coronavirus OC43 (PCR) (NotDetected) Coronavirus HKU1 (PCR) (NotDetected) Coronavirus 229E (PCR) (NotDetected) SARS-CoV-2 (PCR) (NotDetected) Coronavirus NL63 (PCR) (NotDetected) Human Metapneumovir PCR (NotDetected) Influenza Type A (PCR) (NotDetected) Influenza Type B (PCR) (NotDetected) M. pneumoniae (PCR) (NotDetected) Parainfluenza 1 (PCR) (NotDetected) Parainfluenza 2 (PCR) (NotDetected) Parainfluenza 3 (PCR) (NotDetected) Parainfluenza 4 (PCR) (NotDetected) RSV (PCR) (NotDetected) Entero/Rhino (PCR) (NotDetected) 05/09/23 05/09/23 05/09/23 Range/Units 15:06 15:11 Unknown WBC (4.8-10.8) K/ul RBC (4.70-6.10) M/uL Hgb (14.0-18.0) g/dl Hct (42.0-52.0) % MCV (80.0-100.0) fL MCH (25.0-34.0) pg MCHC (32.0-36.0) g/dL RDW Std Deviation (36.4-46.3) fL RDW Coeff of Conchis (11.5-14.5) % Plt Count (130-400) K/uL MPV (9.4-12.4) fL Immature Gran % (Auto) % Neut % (Auto) % Lymph % (Auto) % [place] % (Auto) % Eos % (Auto) % Baso % (Auto) % Neut # (Auto) (1.40-6.50) K/uL Lymph # (Auto) (1.20-3.40) K/uL [place] # (Auto) (0.11-0.59) K/uL Eos # (Auto) (0.00-0.50) K/uL Baso # (Auto) (0.00-0.20) K/uL Immature Gran # (Auto) (0.01-0.20) K/uL PT (9.0-12.0) Seconds INR (0.9-1.1) APTT (21.0-31.0) Seconds PTT Ratio VBG pH (7.36-7.41) VBG pCO2 (38-50) mmHg VBG pO2 mmHg VBG HCO3 mmol/L VBG O2 Saturation % VBG Base Excess mEq/L Sodium (136-145) mmol/L Potassium (3.5-5.1) mmol/L Chloride (98-107) mmol/L Carbon Dioxide (21-32) mmol/L Anion Gap (3-11) BUN (6-23) mg/dl Creatinine (0.6-1.4) mg/dl Est Cr Clr Drug Dosing ml/min Est GFR ( Amer) ml/min Est GFR (Non-Af Amer) ml/min BUN/Creatinine Ratio (10-20) Glucose (70-99(Fasting)) mg/dl Lactate (0.4-2.0) mmol/L Calcium (8.6-10.3) mg/dl Magnesium 2.1 (1.7-2.4) mg/dl Total Bilirubin (0.2-1.0) mg/dl AST (13-39) U/L ALT (7-52) U/L Alkaline Phosphatase (34-104) U/L Troponin I High Sens 96.4 H* (0-20) pg/ml C-Reactive Protein 8.82 H (0-0.5) mg/dl B-Natriuretic Peptide (0-100) pg/ml Total Protein (6.0-8.3) gm/dl Albumin (3.4-5.0) gm/dl Globulin (2.5-4.0) gm/dl Albumin/Globulin Ratio (0.9-2) Procalcitonin 0.12 (0-0.5) ng/ml Adenovirus (PCR) Not Detected (NotDetected) B. pertussis DNA (PCR) Not Detected (NotDetected) B.parapertussis DNA PCR Not Detected (NotDetected) C. pneumoniae DNA (PCR) Not Detected (NotDetected) Coronavirus OC43 (PCR) Not Detected (NotDetected) Coronavirus HKU1 (PCR) Not Detected (NotDetected) Coronavirus 229E (PCR) Not Detected (NotDetected) SARS-CoV-2 (PCR) Not Detected (NotDetected) Coronavirus NL63 (PCR) Not Detected (NotDetected) Human Metapneumovir PCR Not Detected (NotDetected) Influenza Type A (PCR) Not Detected (NotDetected) Influenza Type B (PCR) Not Detected (NotDetected) M. pneumoniae (PCR) Not Detected (NotDetected) Parainfluenza 1 (PCR) Not Detected (NotDetected) Parainfluenza 2 (PCR) Not Detected (NotDetected) Parainfluenza 3 (PCR) Not Detected (NotDetected) Parainfluenza 4 (PCR) Not Detected (NotDetected) RSV (PCR) Not Detected (NotDetected) Entero/Rhino (PCR) Not Detected (NotDetected) Administered Medications Discontinued Medications Albuterol (Albut/Ipratrop 3mg/0.5mg Neb 3 Ml Vial) 3 ml NEB NOW STA; Protocol Stop: 05/09/23 15:01 Last Admin: 05/09/23 15:24 Dose: 3 ml Documented By: [facility] Ceftriaxone Sodium (Rocephin) 2,000 mg in 70 mls @ 140 mls/hr IV NOW STA Stop: 05/09/23 15:16 Last Admin: 05/09/23 15:25 Dose: 140 mls/hr Documented By: ACC Ioversol (Ioversol 350 Mg 125ml Prefilled Syringe) 114 ml IV ONCE ONE Stop: 05/09/23 14:26 Last Admin: 05/09/23 14:25 Dose: 114 ml Documented By: K[facility] Methylprednisolone (Methylprednisolone 125 Mg/2 Ml Vial) 125 mg IV NOW STA Stop: 05/09/23 15:01 Last Admin: 05/09/23 15:25 Dose: 125 mg Documented By: [facility] Imaging Data Attestation: I personally reviewed and interpreted this imaging study as follow s: My Impression: 1 view chest x-ray was obtained in the emergency department. My interpretation is bilateral lower lobe infiltrate, final report below. Radiologist's Impression: Chest X-Ray 05/09/23 12:05 XR chest 1V not portable HISTORY: Chest pain, nonspecific COMPARISON: Chest CT 03/06/2023 and chest x-ray 02/11/2023. FINDINGS: Emphysema again noted. No pneumothorax. There are old, healed left- sided rib fractures. A calcified granuloma again noted within the left midlung zone. The heart is normal in size. Patchy bibasilar densities have slightly progressed. Small peripheral airspace opacity within the right upper lobe has also slightly progressed. IMPRESSION: Interval progression of the patchy bibasilar airspace opacities and a small peripheral right upper lobe airspace opacity. This is consistent with a progressive pneumonia. This could be due to aspiration. ACT 112: Negative or not required by law. Electronically signed by: Des Ware M.D. 05/09/2023 12:38 PM Chest CTA 05/09/23 13:31 CT angio chest PE protocol CLINICAL HISTORY: PE TECHNIQUE: Multidetector row helical CT of the chest was performed with angiographic protocol. Coronal and sagittal reformations were obtained. Coronal and sagittal MIPS were obtained from the axial data set and were submitted for review. Automated dose lowering techniques and/or adjustment according to patient size were utilized for this exam. CT DOSE: 394.79 mGy.cm Comparison: Comparison is made to CT chest 03/06/2023 FINDINGS: Lungs and pleura: Diffuse centrilobular emphysema is seen most prominent in the upper lobes. Airspace consolidation is noted in the bilateral lower lungs. Possible trace bilateral pleural effusions. Heart and pericardium: Cardiomegaly is seen with biatrial enlargement. Vessels: Evaluation for pulmonary embolism is limited due to suboptimal contrast timing. No evidence of central, lobar, or segmental embolus. Mediastinum and tyrel: Unremarkable. Chest wall and lower neck: Unremarkable. Abdomen: Unremarkable. Bones: Degenerative changes in the thoracic spine. IMPRESSION: 1. Bilateral airspace opacities are compatible with aspiration/pneumonia dem onstrating evolutionary change from prior exam. Bronchial wall thickening and emphysema are noted. 2. Exam is limited by suboptimal contrast timing, however no definite pulmonary embolus is seen. ACT 112: Negative or not required by law. Electronically signed by: Michi Dias M.D. 05/09/2023 2:37 PM Discharge Plan Visit Data Chief Complaint: Throat Pain Stated Complaint: SPIT UP BLOOD ED Provider: Samm Cherry Discharge Problem: Bilateral pneumonia, Hypoxia, COPD (chronic obstructive pulmonary disease), Cough with hemoptysis Patient Disposition: Being Evaluated by Hospitalist Forms Stand Alone Forms: My [facility] Prescriptions Prescriptions: No Action guaifenesin [Mucinex] 600 mg tablet extended release 12hr 600 mg PO BID Qty: 180 1RF albuterol sulfate [ProAir HFA] 90 mcg/actuation HFA aerosol inhaler 2 puff inhalation Q6H PRN (Reason: Shortness Of Breath) Qty: 3 1RF (DME) Portable Oxygen Misc See Rx Instructions .MEDSUPPLY Qty: 1 0RF Rx Instructions: Pt may increase O2 to 3lpm via nc PRN to maintain O2 Sat above 88% WILIAN 99 metoprolol succinate 50 mg tablet extended release 24 hr 50 mg PO DAILY Qty: 90 3RF colchicine (gout) 0.6 mg capsule 0.6 mg PO BID Qty: 14 1RF sodium chloride 3 % solution for nebulization 4 ml inhalation BID Qty: 240 11RF ipratropium-albuterol 0.5 mg-3 mg(2.5 mg base)/3 mL solution for nebulization 3 ml inhalation Q8H PRN (Reason: shortness of breath or wheezing) Qty: 180 5RF glucosamine-chondroitin [Osteo Bi-Flex] 250-200 mg tablet 2 tab PO QAM Rx Instructions: give after food/meal (DME) Flutter Valve Device See Rx Instructions .MEDSUPPLY Qty: 1 0RF Rx Instructions: Use it every 6 hours when awake. finasteride 5 mg tablet 5 mg PO DAILY Qty: 90 3RF (DME) Flutter Valve Device See Rx Instructions .MEDSUPPLY Qty: 1 0RF Rx Instructions: Use it every 6 hours when awake. omega-3 acid ethyl esters 1 gram capsule 1 cap PO QAM (DME) nebulizers Misc See Rx Instructions miscellaneous .MEDSUPPLY Qty: 1 0RF Rx Instructions: Use BID with saline in the nebulizer and as directed. Lifetime need. Trelegy Ellipta 100-62.5-25 mcg blister with device 1 inh inhalation DAILY Qty: 3 1RF diclofenac sodium 1 % gel 4 g topical QID PRN (Reason: Pain) pantoprazole 40 mg tablet,delayed release (DR/EC) 40 mg PO DAILY Qty: 30 2RF green tea leaf extract [Green Tea] 250 mg Capsule 500 mg PO QAM Centrum Silver Ultra Men's 300-600-300 mcg Tablet 1 tab PO QAM Referrals Referrals: PCP,NO [Physician] -
[2023-05-09] MEDS ORDERED: IOVERSOL 350 MG 125mL Prefilled Syringe IV ONE (14:25)
--- NOTE | 2023-05-09 14:38 | CT Scan Report ---
CT angio chest PE protocol CLINICAL HISTORY: PE TECHNIQUE: Multidetector row helical CT of the chest was performed with angiographic protocol. Morris l and sagittal reformations were obtained. Coronal and sagittal MIPS were obtained from the axial byron a set and were submitted for review. Automated dose lowering techniques and/or adjustment according to patient size were utilized for this exam. CT DOSE: 394.79 mGy.cm Comparison: Comparison is made to CT chest 03/06/2023 FINDINGS: Lungs and pleura: Diffuse centrilobular emphysema is seen most prominent in the upper lobes. Airspace consolidation is noted in the bilateral lower lungs. Possible trace bilateral pleural effusions. Heart and pericardium: Cardiomegaly is seen with biatrial enlargement. Vessels: Evaluation for pulmonary embolism is limited due to suboptimal contrast timing. No evidence of central, lobar, or segmental embolus. Mediastinum and tyrel: Unremarkable. Chest wall and lower neck: Unremarkable. Abdomen: Unremarkable. Bones: Degenerative changes in the thoracic spine. IMPRESSION: 1. Bilateral airspace opacities are compatible with aspiration/pneumonia demonstrating evolutionary change from prior exam. Bronchial wall thickening and emphysema are noted. 2. Exam is limited by suboptimal contrast timing, however no definite pulmonary embolus is seen. ACT 112: Negative or not required by law. Electronically signed by: Michi Dias M.D. 05/09/2023 2:37 PM
[2023-05-09] MEDS ORDERED: cefTRIAXone SODIUM 2,000 MG/70 ML BAG IV STA (14:47)
[2023-05-09] MEDS ORDERED: methylPREDNISolone 125 MG/2 ML VIAL IV STA (15:00)
[2023-05-09] MEDS ORDERED: ALBUT/IPRATROP 3MG/0.5MG NEB 3 ML VIAL NEB STA (15:00)
--- NOTE | 2023-05-09 15:24 | History & Physical Report ---
Date of Service May 09, 2023 Assessment & Plan (1) Bilateral pneumonia: Plan: Hypoxic respiratory failure 2/2 pneumonia? Aspiration No leukocytosis Procalcitonin pending CTAchest: Bilateral airspace opacities suspicious for aspiration pneumonia with evolution compared to prior, no obvious PE but limited by timing of contrast CXR: Interval progression of bibasilar airspace opacities suspicious for progressive pneumonia, suspicious for aspiration pneumonia Received Rocephin in ER Admitted on Unasyn, target Augmentin for discharge if clinically improving and at baseline oxygen level SPO2 goal greater than 90% Admitting VBG 7.34/51//28, mild respiratory acidosis Lung Nodule - PET 10/27: 1. Intense FDG uptake associated with the 1.7 cm lobular peripheral nodule within the right upper lobe. Therefore, this is highly suspicious for a p rimary bronchogenic malignancy.2. Mediastinal and right hilar lymphadenopathy again noted demonstrating mild FDG uptake. This is nonspecific and could be reactive to the suspected pneumonia or represent early metastatic change.3. FDG uptake associated with the patchy bibasilar densities which favor a pneumonia.4. There is a new 11 mm nodular opacity within the base of the left lower lobe demonstrating mild FDG uptake. This favors a component of the pneumonitis. However, this bears watching on future examinations. Had radiation therapy 10/2022, his every 3 months follow-up as outpatient. Macrocytic anemia Hemoglobin 10.5, uptrending from prior measurements Microcytic Denies recent BRBPR/GIB. Patient considering outpatient EGD versus pill endoscopy as a patient Continue PPI. Ferritin 17.3 in February. Defer iron infusion in the setting of worsening pneumonia History of COPD with hypoxia Gold class D Last PFTs FEV1 57%, FEV1/FVC ratio 43%, DLCO 60% Patient with home supplemental oxygen up to 3 L as needed, currently on 3 L Suspect acute exacerbation in the setting of pneumonia Received 125 mg methylprednisolone in ER With wheezing we will continue twice daily, and antibiotics as noted above Continue home inhaler/formulary equivalent CAD, elevated troponin With history of CAD and prior type II NC Similar noted 10/2022, at that time reviewed with cardiology and patient who does not wish for invasive testing and restratification. Suspect current troponin elevation is due to demand ischemia in the setting of progressive pneumonia Trended BPH with LUTS Continue finasteride History of aortic aneurysm repair Outpatient follow-up, no change in management at this time. No abdominal pain DVT prophylaxis: Pharmacoprophylaxis deferred due to hemoptysis, SCDs. If hemoglobin stable, and heparin subcu Disposition: Telemetry due to pneumonia with troponin elevation, history of NSVT CODE STATUS: Full code Diet: Heart healthy (2) Hypoxia: (3) COPD (chronic obstructive pulmonary disease): (4) Cough with hemoptysis: (5) Multifocal pneumonia: History of Present Illness Primary Care Provider: Gabino Fisher MD Eliazar is an 87-year-old male with a past medical history of COPD, iron deficiency, pulmonary hypertension, NSVT, CKD 3, abdominal aortic aneurysm, BPH with LUTS who presents to the emergency department with shortness of breath and difficulty breathing and increased cough over the last 4 days. He is r ecommended for admission for suspected worsening pneumonia with demand ischemia. Last beam radiation was in November Seen with his david More fatigue, slightly more short of breath in the last week. Cough x4 days, but seems to just be mucous whih is dark diaz/silver color. Intermitently has hemoptysis Denies history of aspiration recently. Denies problems swallowing. No fevers, chills or seast No chest pain NO further followup for lung nodule yet, is waiting for followup with Dr. Brunson and serial imaging. Medical History: Reviewed Medications: Reviewed Surgical History: Reviewed Family history: Reviewed Allergies: Reviewed Social History: Reviewed Code Status:Full Code Allergies Allergy/AdvReac Type Severity Reaction Status Date / Time roflumilast [From [facility]] Allergy Intermediate rash Verified 05/09/23 15:12 Home Medications Medication Instructions Recorded Confirmed Type omega-3 acid ethyl esters 1 gram 1 cap PO QAM 05/17/19 05/09/23 History capsule guaifenesin 600 mg tablet, 600 mg PO BID #180 tabs 12/12/19 05/09/23 Rx extended release 12 hr (Mucinex) green tea leaf extract 250 mg 500 mg PO QAM 01/18/20 05/09/23 History capsule (Green Tea) sxesbihx-ax-yrbcv 300 mcg-K 60 1 tab PO QAM 01/18/20 05/09/23 History mcg-lycop 600 mcg-lutein 300 mcg tablet (Centrum Silver Ultra Men's) nebulizers #1 ea 07/08/20 03/16/23 Rx glucosamine-chondroitin 250 mg-200 2 tab PO QAM 11/11/20 05/09/23 History mg tablet (Osteo Bi-Flex) Flutter Valve #1 ea 03/10/21 03/16/23 Rx albuterol sulfate 90 mcg/actuation 2 puff inhalation Q6H PRN 12/29/21 05/09/23 Rx aerosol inhaler (ProAir HFA) Shortness Of Breath #3 Inhalers Portable Oxygen #1 ea 06/06/22 03/16/23 Rx Flutter Valve #1 ea 09/16/22 03/16/23 Rx metoprolol succinate 50 mg 50 mg PO DAILY #90 tabs 11/29/22 05/09/23 Rx tablet,extended release 24 hr fluticasone fur. 100 mcg-umeclid 1 inh inhalation DAILY #3 Inhalers 12/07/22 05/09/23 Rx 62.5 mcg-vilant 25 mcg inhalat.powder (Trelegy Ellipta) finasteride 5 mg tablet 5 mg PO DAILY #90 tabs 01/19/23 05/09/23 Rx colchicine (gout) 0.6 mg capsule 0.6 mg PO BID #14 caps 03/06/23 05/09/23 Rx diclofenac sodium 1 % topical gel 4 g topical QID PRN Pain 03/16/23 05/09/23 History pantoprazole 40 mg tablet,delayed 40 mg PO DAILY #30 tabs 03/16/23 05/09/23 Rx release sodium chloride 3 % for 4 ml inhalation BID secretions 03/27/23 05/09/23 Rx nebulization #240 mL ipratropium 0.5 mg-albuterol 3 mg 3 ml inhalation Q8H PRN shortness 04/04/23 05/09/23 Rx (2.5 mg base)/3 mL nebulization of breath or wheezing #180 mL soln Past Med/Surg History Medical History AAA (abdominal aortic aneurysm) Aorto-iliac disease BPH (benign prostatic hyperplasia) Chest pain Chronic cough Chronic obstructive pulmonary disease follows Jov[facility] Borja. rarely uses rescue inh CKD (chronic kidney disease), stage III CKD (chronic kidney disease), stage III COPD (chronic obstructive pulmonary disease) Glaucoma of both eyes HTN (hypertension) Hyperlipidemia Hypertension Hypoxia NSVT (nonsustained ventricular tachycardia) pt unaware of this Osteoarthritis Sinus bradycardia Solitary pulmonary nodule follows [facility] [place] Surgical History H/O aortic aneurysm repair Oct 1999- suzy romero / follows Dr. Marshall HENDRICKSON History of AAA (abdominal aortic aneurysm) repair History of back surgery L4-L5 History of cataract surgery LEFT History of colonoscopy History of herniorrhaphy Right groin History of lumbar laminectomy Inguinal hernia Family History Brother Medical history unknown Mother , 96yo Natural with unknown cause Hypertension Father , in his 50s Emphysema lung Son No problems noted. Son No problems noted. Son No problems noted. Denies family history of Myocardial infarction Stroke Social History Smoking Status: Current every day smoker Tobacco Type: Cigarettes packs per day: 1; Cigarettes Per Day: 10; Second Hand Exposure: No; Do You Dip or Chew Tobacco: Yes; Hx Alcohol Use: Yes (sparingly ) Alcohol type: beer Alcohol Intake Frequency Comment: 2 vodka cranberry drinks maybe 3-4 days a week Hx Substance Use: No Preferred Language: Thai Communication Ability: Effective Visual Impairment: Limited Hearing Ability: Normal Postal Worker Required: No Beliefs That Will Affect Care: None marital status: Current Living Situation: Spouse Current Living Situation Comment: Lives independently at home with current occupational status: retired How many Children do You have: 3 Feels Safe at Home: Yes Childhood Exposure to Second-Hand Smoke: Yes Diet: regular caffeine: Yes during the past year weight has: decreased > 10 lbs Dental Care, Regularly: No Physical Activity Frequency: Does not Exercise Seatbelt Use: always Sunscreen Use: Yes Assistive Devices: Oxygen - at Night Review of Systems Review of Systems: All systems reviewed & are unremarkable except as noted in HPI & below Physical Exam Physical Exam: General: A&Ox3. NAD. Cooperative. HEENT: Atraumatic, normocephalic. Vision/hearing grossly Pulm: Bibasilar crackles symmetrical chest rise. No increased work of breathing. No respiratory distress. Cardiac: RRR, -mrg. Radial pulses intact and symmetrical. Abdominal: Nontender, nondistended, soft. BS present. Results & Data Results & Data Vital Signs (Past 12 Hours) Vital Signs Pulse Pulse Resp BP Pulse Ox O2 Del Method O2 Flow Rate 05/09/23 14:16 Nasal Cannula 3 05/09/23 14:16 Nasal Cannula 05/09/23 14:15 58 L 16 96 Nasal Cannula 3 05/09/23 14:15 98 Nasal Cannula 3 05/09/23 14:12 55 L 16 98 Nasal Cannula 05/09/23 14:08 55 L 05/09/23 12:01 79 18 158/75 H 88 L PG Care Time/CCT Total # of Minutes Spent Total Time Spent with Patient: Total time spent is greater than 50% in coordination of care (as documented) at patient's floor/unit and/or counseling patient: Coding Level of Care Code 77351 INT INP/OBS CARE 375MIN Diagnoses Bilateral pneumonia J18.9 Lung location: lower lobe of lung Pneumonia type: due to unspecified organism Hypoxia R09.02 COPD (chronic obstructive pulmonary disease) J44.9 COPD type: unspecified COPD Cough with hemoptysis R04.2 Multifocal pneumonia J18.9 (1) Bilateral pneumonia Lung location: lower lobe of lung Pneumonia type: due to unspecified organism Qualified Code(s): J18.9 - Pneumonia, unspecified organism (3) COPD (chronic obstructive pulmonary disease) COPD type: unspecified COPD Qualified Code(s): J44.9 - Chronic obstructive pulmonary disease, unspecified
[2023-05-09 15:29] LABS: Base Excess VBG 0.9 mEq/L; HCO3 VBG 28 mmol/L; Oxygen Saturation VBG < 60.0 %; PCO2 VBG 51 mmHg (38-50); PO2 VBG 26 mmHg; pH VBG 7.34 (7.36-7.41)
[2023-05-09 15:35] LABS: Adenovirus PCR Not Detected (NotDetected); Bordetella parapertussis PCR Not Detected (NotDetected); Bordetella pertussis PCR Not Detected (NotDetected); Chlamydia pneumoniae PCR Not Detected (NotDetected); Coronavirus 229E PCR Not Detected (NotDetected); Coronavirus CoV-2 (COVID19)PCR Not Detected (NotDetected); Coronavirus HKU1 PCR Not Detected (NotDetected); Coronavirus NL63 PCR Not Detected (NotDetected); Coronavirus OC43PCR Not Detected (NotDetected); Human Metapneumovirus PCR Not Detected (NotDetected); Influenza A PCR Not Detected (NotDetected); Influenza B PCR Not Detected (NotDetected); Mycoplasma pneumoniae PCR Not Detected (NotDetected); Parainfluenza Virus 1 PCR Not Detected (NotDetected); Parainfluenza Virus 2 PCR Not Detected (NotDetected); Parainfluenza Virus 3 PCR Not Detected (NotDetected); Parainfluenza Virus 4 PCR Not Detected (NotDetected); Respiratory Syncytial VirusPCR Not Detected (NotDetected); Rhinovirus/Enterovirus PCR Not Detected (NotDetected)
[2023-05-09 15:51] LABS: C Reactive Protein 8.82 mg/dl (0-0.5); Magnesium 2.1 mg/dl (1.7-2.4)
[2023-05-09 16:00] LABS: Troponin I High Sensitivity 96.4 pg/ml (0-20)
[2023-05-09] MEDS ORDERED: ACETAMINOPHEN 325 MG TAB PO PRN (18:33)
[2023-05-09] MEDS ORDERED: ALBUT/IPRATROP 3MG/0.5MG NEB 3 ML VIAL INH PRN (18:33)
[2023-05-09] MEDS ORDERED: ALBUTEROL HFA 8 GM INHALER INH PRN (18:33)
[2023-05-09] MEDS: AMPICILLIN/SULBACTAM SOD 3,000 MG in 0.9 % SODIUM CHLORIDE 100 ML IV SCH (19:36)
[2023-05-09] MEDS: guaiFENesin 600 MG TABCR PO SCH (22:55)
[2023-05-10] MEDS: AMPICILLIN/SULBACTAM SOD 3,000 MG in 0.9 % SODIUM CHLORIDE 100 ML IV SCH ×4 (01:48→20:30)
[2023-05-10 07:43] LABS: Basophils # (auto) 0.01 K/uL (0.00-0.20); Basophils % (auto) 0.2 %; Hematocrit (blood only) 38.1 % (42.0-52.0); Hemoglobin 11.4 g/dl (14.0-18.0); Immature Granulocytes # (auto) 0.01 K/uL (0.01-0.20); Immature Granulocytes % (auto) 0.2 %; Lymphocytes # (auto) 0.74 K/uL (1.20-3.40); Lymphocytes % (auto) 17.4 %; Mean Corpuscular Hemoglobin 23.2 pg (25.0-34.0); Mean Corpuscular Hgb Conc 29.9 g/dL (32.0-36.0); Mean Corpuscular Volume 77.6 fL (80.0-100.0); Mean Platelet Volume 9.3 fL (9.4-12.4); Monocytes # (auto) 0.09 K/uL (0.11-0.59); Monocytes % (auto) 2.1 %; Neutrophils # (auto) 3.41 K/uL (1.40-6.50); Neutrophils % (auto) 80.1 %; Platelet Count 172 K/uL (130-400); RDW Coefficient of Variation 19.1 % (11.5-14.5); RDW Standard Deviation 53.6 fL (36.4-46.3); Red Blood Count 4.91 M/uL (4.70-6.10); White Blood Count 4.26 K/ul (4.8-10.8)
[2023-05-10 08:00] LABS: BUN Creatinine Ratio 21.5 (10-20); C Reactive Protein 6.72 mg/dl (0-0.5); Calcium 10.5 mg/dl (8.6-10.3); Creatinine Clr Calc Pharmacy 37.1 ml/min; Est GFR (African American) 56.1 ml/min; Est GFR (Non-African American) 48.4 ml/min; Potassium 4.6 mmol/L (3.5-5.1)
[2023-05-10] MEDS: OMEGA-3 (PURIFIED FISH OIL) 1 GM CAP PO SCH (08:46)
[2023-05-10] MEDS: PANTOprazole 40 MG TAB PO SCH (08:46)
[2023-05-10] MEDS: CEROVITE ADV FORMULA TAB PO SCH (08:46)
[2023-05-10] MEDS: METOPROLOL SUCC 50MG EXT REL TAB PO SCH (08:46)
[2023-05-10] MEDS: guaiFENesin 600 MG TABCR PO SCH ×2 (08:47→20:19)
[2023-05-10] MEDS: UMECLIDINIUM/VILANTEROL 62.5/25MCG 7 PUFFS/INHALER INH SCH (08:48)
[2023-05-10] MEDS: FLUTICASONE FUROATE 100MCG 14 PUFFS/INHALER INH SCH (08:49)
[2023-05-10] MEDS: FINASTERIDE 5 MG TAB PO SCH (08:49)
[2023-05-10] MEDS ORDERED: NON-FORMULARY MEDICATION (Glucosamine-Chondroitin [Osteo Bi-Flex] 250-200 mg tablet) PO SCH (09:00)
[2023-05-10] MEDS ORDERED: GREEN TEA LEAF EXTRACT 250 MG PO SCH (09:00)
[2023-05-10] MEDS ORDERED: NON-FORMULARY MEDICATION (Fluticasone-Umeclidin-Vilanter [Trelegy Ellipta] 100-62.5-25 mcg INH SCH (09:00)
--- NOTE | 2023-05-10 12:21 | Hospitalist Progress Note ---
Date of Service May 10, 2023 Assessment & Plan (1) Bilateral pneumonia: Plan: Hypoxic respiratory failure 2/2 pneumonia? Aspiration No leukocytosis Procalcitonin negative CTAchest: Bilateral airspace opacities suspicious for aspiration pneumonia with evolution compared to prior, no obvious PE but limited by timing of contrast CXR: Interval progression of bibasilar airspace opacities suspicious for progressive pneumonia, suspicious for aspiration pneumonia Received Rocephin in ER Admitted on Unasyn, target Augmentin for discharge if clinically improving and at baseline oxygen level SPO2 goal greater than 90% Admitting VBG 7.34/51//, mild respiratory acidosis -D/W Pulmonary, will treat as a COPD exacerbation. Patient reports no signs of aspirating. Patient would like to trial with food. Given that patient tolerated taking PO meds, this request does not appear unreasonable. Will also consult speech. Lung Nodule - PET 10/27: 1. Intense FDG uptake associated with the 1.7 cm lobular peripheral nodule within the right upper lobe. Therefore, this is highly suspicious for a primary bronchogenic malignancy.2. Mediastinal and right hilar lymphadenopathy again noted demonstrating mild FDG uptake. This is nonspecific and could be reactive to the suspected pneumonia or represent early metastatic change.3. FDG uptake associated with the patchy bibasilar densities which favor a pneumonia.4. There is a new 11 mm nodular opacity within the base of the left lower lobe demonstrating mild FDG uptake. This favors a component of the pneumonitis. However, this bears watching on future examinations. Had radiation therapy 10/2022, his every 3 months follow-up as outpatient. Macrocytic anemia Hemoglobin 10.5, uptrending from prior measurements Microcytic Denies recent BRBPR/GIB. Patient considering outpatient EGD versus pill endoscopy as a patient Continue PPI. Ferritin 17.3 in February. Defer iron infusion in the setting of worsening pneumonia History of COPD with hypoxia Gold class D Last PFTs FEV1 57%, FEV1/FVC ratio 43%, DLCO 60% Patient with home supplemental oxygen up to 3 L as needed, currently on 3 L Suspect acute exacerbation in the setting of pneumonia Received 125 mg methylprednisolone in ER With wheezing we will continue twice daily, and antibiotics as noted above Continue home inhaler/formulary equivalent CAD, elevated troponin With history of CAD and prior type II [place] Similar noted 10/2022, at that time reviewed with cardiology and patient who does not wish for invasive testing and restratification. Suspect current troponin elevation is due to demand ischemia in the setting of progressive pneumonia Trended BPH with LUTS Continue finasteride History of aortic aneurysm repair Outpatient follow-up, no change in management at this time. No abdominal pain DVT prophylaxis: Pharmacoprophylaxis deferred due to hemoptysis, SCDs. If hemoglobin stable, and heparin subcu Disposition: Telemetry due to pneumonia with troponin elevation, history of NSVT CODE STATUS: Full code Diet: Heart healthy (2) Hypoxia: (3) COPD (chronic obstructive pulmonary disease): (4) Cough with hemoptysis: (5) Multifocal pneumonia: Admission and Anticipated Discharge Date Admission Date: May 09, 2023 Subjective Patient reports feeling comfortable. Patient has no new complaints. Review of Systems Review of Systems: All systems reviewed & are unremarkable except as noted in HPI & below Physical Exam Physical Exam: General: A&Ox3. NAD. Cooperative. HEENT: Atraumatic, normocephalic. Vision/hearing grossly Pulm: Bibasilar crackles symmetrical chest rise. No increased work of breathing. No respiratory distress. Cardiac: RRR, -mrg. Radial pulses intact and symmetrical. Abdominal: Nontender, nondistended, soft. BS present. Results & Data Results & Data Vital Signs (Past 12 Hours) Vital Signs Temp Pulse Pulse Resp BP BP Pulse Ox 05/10/23 07:56 49 L 19 155/80 H 97 05/10/23 07:56 05/10/23 07:31 54 L 05/10/23 04:35 50 L 15 150/77 H 98 05/10/23 01:49 05/10/23 01:49 36.4 C L 54 L 18 137/66 93 Pulse Ox O2 Del Method O2 Del Method O2 Flow Rate O2 Flow Rate 05/10/23 07:56 Nasal Cannula 3 05/10/23 07:56 97 Nasal Cannula 3 05/10/23 07:31 05/10/23 04:35 Room Air 05/10/23 01:49 Nasal Cannula 3 05/10/23 01:49 Nasal Cannula 3 PG Care Time/CCT Total # of Minutes Spent Total Time Spent with Patient: Total time spent is greater than 50% in coordination of care (as documented) at patient's floor/unit and/or counseling patient: Coding Level of Care Code 78617 SUB INP/OBS CARE MIN Diagnoses Bilateral pneumonia J18.9 Lung location: lower lobe of lung Pneumonia type: due to unspecified organism Hypoxia R09.02 COPD (chronic obstructive pulmonary disease) J44.9 COPD type: unspecified COPD Cough with hemoptysis R04.2 Multifocal pneumonia J18.9 (1) Bilateral pneumonia Lung location: lower lobe of lung Pneumonia type: due to unspecified organism Qualified Code(s): J18.9 - Pneumonia, unspecified organism (3) COPD (chronic obstructive pulmonary disease) COPD type: unspecified COPD Qualified Code(s): J44.9 - Chronic obstructive pulmonary disease, unspecified
--- NOTE | 2023-05-10 14:32 | Pulmonary Consultation ---
Date of Consultation May 10, 2023 Assessment & Plan (1) Bilateral pneumonia: Lung location: lower lobe of lung Pneumonia type: due to unspecified organism Qualified Code(s): J18.9 - Pneumonia, unspecified organism (2) COPD (chronic obstructive pulmonary disease): COPD type: unspecified COPD Qualified Code(s): J44.9 - Chronic obstructive pulmonary disease, unspecified (3) Cough with hemoptysis: (4) Pulmonary hypertension: (5) Solitary pulmonary nodule: (6) OSORIO (dyspnea on exertion): Plan Attending: Dr. Oliva Impression: 87-year-old male with history of COPD Gold class D. Chronic respiratory failure with hypoxia requiring supplemental oxygen at 3 L/min by nasal cannula . Patient presented for concerns with hemoptysis. No sputum samples been collected. No leukocytosis. Procalcitonin 0.12 NG per mL. Patient reports that he feels as though he is at baseline. He has no acute concerns at this time. Greater than [id number] smoking history. Patient states he quit smoking 3 years ago. Recommendations: 1. Hemoptysis: * Patient reports that he had very scant blood-tinged sputum on the morning of admission. He was concerned as this was an a.m. sample and it did not immediately resolve * Patient denies any clots of blood with cough * Blood-tinged sputum seems to have resolved * No indication for intervention at this time 2. COPD: * Gold class D with associated emphysema and chronic bronchitis * Patient continues to use Trelegy Ellipta 1 puff daily * Patient also prescribed azithromycin 250 mg p.o. Monday, Monday, Monday. This should be continued on discharge. QTc on EKG 05/09/2023 374 ms * Patient quit smoking 3 years ago * Advised patient to keep outpatient appoint with Dr. Vieyra in June 3. Tobacco abuse history: * [id number] smoking history. Quit smoking 3 years ago * Patient advised to continue to abstain from all tobacco products 4. Chronic respiratory failure with hypoxia: * Patient is currently at baseline on 3 L/min via nasal cannula. He was walked in the hallway by physical therapy and Occupational Therapy and had no desaturations with oxygen in place * Continue supplemental oxygen as ordered * Follow-up with Dr. Vieyra in June as scheduled 5. Multifocal pneumonia: * Afebrile. No leukocytosis. * Check a sputum sample * Procalcitonin is negative * Unclear if this is from aspiration (although patient denies dysphagia), pneumonitis, chronic pulmonary issues * Okay to de-escalate from IV antibiotics and to oral. Augmentin would probably be appropriate for total course of 10 days * Follow-up with Dr. Vieyra in the outpatient office in June as scheduled Thank you for including us in the care of this patient. He appears to be at baseline based on review of outpatient records and based on patient's testimony. No further concerns with hemoptysis are apparent. No indication for bronchoscopy or other intervention The pulmonary service will sign off at this time. Please refer to Dr. Oliva's note for further recommendations and corrections. Supervising Physician Co-Signing Physician Notes Patient seen and examined. EMR reviewed. Discussed with hospitalist as well as with KHADAR. Agree with assessment plan as noted. Patient does have evidence of lower lobe bronchiectasis with mucoid impaction and progressive airspace opacities. Agree with plans to pursue evaluation for occult aspiration. Sputum culture recommended as nontuberculous mycobacterial infection would be on the differential as well. Given the patient's bronchiectasis he is at risk for resistant organisms including staph and gram- negative rods which might be resistant. Would agree with empiric antibiotics in the form of Augmentin now for the next 7 to 10 days. He has follow-up scheduled with his outpatient clam grower. Patient appears to be at his baseline status from a respiratory standpoint. Would recommend dismissing from the hospital on the above antibiotics and outpatient pulmonary follow-up as noted. History of Present Illness Reason for Consultation: COPD exacerbation, aspiration pneumonia Attending Physician: Victor Hugo Coffman History of Present Illness Attending: Dr. Pj Mccurdy Colonel Chavez is a very pleasant 87-year-old male. 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 He follows with Dr. Vieyra in the outpatient clinic and was last seen in December 2022. Patient has chronic respiratory failure requiring supplemental oxygen at 3 L/min via nasal cannula . He presented to the emergency department for evaluation as he had a.m. sputum on the day of admission with blood tinge x3. He denies any significant clots or other major hemoptysis. Patient does have history of right upper lobe nodule which was suspicious for malignancy. He underwent radiation to that nodule under the care of Dr. Maria T Brunson and completed treatment 11/25/2022. He received 5000 cGy utilizing SBRT over 5 fractions. Patient reports that he feels as though he is at baseline. He was seen by physical therapy and Occupational Therapy today. He did desaturate on room air but returned to SPO2 of 91% very quickly once oxygen was placed. Patient denies any chest pain or tightness. He has no new or unusual cough. Hemoptysis has resolved. Patient [place] fever, chills, sweats, rigors. He has no other acute complaints at this time Allergies Allergy/AdvReac Type Severity Reaction Status Date / Time roflumilast [From [facility]] Allergy Intermediate rash Verified 05/09/23 15:12 Home Medications Medication Instructions Recorded Confirmed Type omega-3 acid ethyl esters 1 gram 1 cap PO QAM 05/17/19 05/09/23 History capsule guaifenesin 600 mg tablet, 600 mg PO BID #180 tabs 12/12/19 05/09/23 Rx extended release 12 hr (Mucinex) green tea leaf extract 250 mg 500 mg PO QAM 01/18/20 05/09/23 History capsule (Green Tea) nrgmihcy-ed-qqgya 300 mcg-K 60 1 tab PO QAM 01/18/20 05/09/23 History mcg-lycop 600 mcg-lutein 300 mcg tablet (Centrum Silver Ultra Men's) nebulizers #1 ea 07/08/20 03/16/23 Rx glucosamine-chondroitin 250 mg-200 2 tab PO QAM 11/11/20 05/09/23 History mg tablet (Osteo Bi-Flex) Flutter Valve #1 ea 03/10/21 03/16/23 Rx albuterol sulfate 90 mcg/actuation 2 puff inhalation Q6H PRN 12/29/21 05/09/23 Rx aerosol inhaler (ProAir HFA) Shortness Of Breath #3 Inhalers Portable Oxygen #1 ea 06/06/22 03/16/23 Rx Flutter Valve #1 ea 09/16/22 03/16/23 Rx metoprolol succinate 50 mg 50 mg PO DAILY #90 tabs 11/29/22 05/09/23 Rx tablet,extended release 24 hr fluticasone fur. 100 mcg-umeclid 1 inh inhalation DAILY #3 Inhalers 12/07/22 05/09/23 Rx 62.5 mcg-vilant 25 mcg inhalat.powder (Trelegy Ellipta) finasteride 5 mg tablet 5 mg PO DAILY #90 tabs 01/19/23 05/09/23 Rx colchicine (gout) 0.6 mg capsule 0.6 mg PO BID #14 caps 03/06/23 05/09/23 Rx diclofenac sodium 1 % topical gel 4 g topical QID PRN Pain 03/16/23 05/09/23 History pantoprazole 40 mg tablet,delayed 40 mg PO DAILY #30 tabs 03/16/23 05/09/23 Rx release sodium chloride 3 % for 4 ml inhalation BID secretions 03/27/23 05/09/23 Rx nebulization #240 mL ipratropium 0.5 mg-albuterol 3 mg 3 ml inhalation Q8H PRN shortness 04/04/23 05/09/23 Rx (2.5 mg base)/3 mL nebulization of breath or wheezing #180 mL soln Patient History Medical History AAA (abdominal aortic aneurysm) Aorto-iliac disease BPH (benign prostatic hyperplasia) Chest pain Chronic cough Chronic obstructive pulmonary disease follows Jov[facility] Borja. rarely uses rescue inh CKD (chronic kidney disease), stage III CKD (chronic kidney disease), stage III COPD (chronic obstructive pulmonary disease) Glaucoma of both eyes HTN (hypertension) Hyperlipidemia Hypertension Hypoxia NSVT (nonsustained ventricular tachycardia) pt unaware of this Osteoarthritis Sinus bradycardia [facility] H/O aortic aneurysm repair Oct 1999- suzy romero / [place] [place] [facility] [place] of AAA (abdominal aortic aneurysm) repair History of back surgery L4-L5 History of cataract surgery LEFT History of colonoscopy History of herniorrhaphy Right groin History of lumbar laminectomy Inguinal hernia Family History Brother Medical history unknown Mother , 96yo Natural with unknown cause Hypertension Father , in his 50s Emphysema lung Son No problems noted. Son No problems noted. Son No problems noted. Denies family history of Myocardial infarction Stroke Social History Smoking Status: Former smoker Tobacco Type: Cigarettes packs per day: 1; Cigarettes Per Day: 10; Second Hand Exposure: No; Do You Dip or Chew Tobacco: Yes; Hx Alcohol Use: Yes Alcohol type: beer Alcohol Intake Frequency Comment: 2 vodka cranberry drinks maybe 3-4 days a week Hx Substance Use: No Preferred Language: Maori Communication Ability: Effective Visual Impairment: Limited Hearing Ability: Normal Ear Pull Machine Operator Required: No Beliefs That Will Affect Care: None marital status: Current Living Situation: Spouse Current Living Situation Comment: Lives independently at home with current occupational status: retired How many Children do You have: 3 Other Information That Helps Us Care for You: No Feels Safe at Home: Yes Safety Concerns: Feels Safe At This Time Childhood Exposure to Second-Hand Smoke: Yes Diet: regular caffeine: Yes during the past year weight has: decreased > 10 lbs Dental Care, Regularly: No Physical Activity Frequency: Does not Exercise Seatbelt Use: always Sunscreen Use: Yes Assistive Devices: Oxygen - Continuous and Wheelchair Review of Systems Review of Systems: A total of 10 systems was reviewed and is negative other than as listed in the HPI Physical Exam Physical Exam: GENERAL : No acute distress EYES: No icterus, gaze conjugate NOSE: No evidence of epistaxis. Nasal cannula is in place and secure MOUTH: No lesions or candidiasis NECK: Supple LUNGS: Some fine crackles at the bilateral bases. No appreciation of bronchospasm or rails. HEART: Regular, rate controlled ABDOMEN: Soft, NT, ND, BS Present EXTREMITIES: No LE edema, pedal pulses intact NEURO: A&OX3 Results & Data Results & Data Vital Signs (Past 12 Hours) Vital Signs Pulse Pulse Resp BP BP Pulse Ox Pulse Ox 05/10/23 07:56 49 L 19 155/80 H 97 05/10/23 07:56 97 05/10/23 07:31 54 L 05/10/23 04:35 50 L 15 150/77 H 98 O2 Del Method O2 Del Method O2 Flow Rate O2 Flow Rate 05/10/23 07:56 Nasal Cannula 3 05/10/23 07:56 Nasal Cannula 3 05/10/23 07:31 05/10/23 04:35 Room Air Critical Care Results & Data Vital Signs (Past 12 Hours) Vital Signs Pulse Pulse Resp BP BP Pulse Ox Pulse Ox 05/10/23 14:13 59 L 18 164/77 H 99 05/10/23 14:13 99 05/10/23 07:56 49 L 19 155/80 H 97 05/10/23 07:56 97 05/10/23 07:31 54 L 05/10/23 04:35 50 L 15 150/77 H 98 O2 Del Method O2 Del Method O2 Flow Rate O2 Flow Rate 05/10/23 14:13 Nasal Cannula 3 05/10/23 14:13 Room Air 05/10/23 07:56 Nasal Cannula 3 05/10/23 07:56 Nasal Cannula 3 05/10/23 07:31 05/10/23 04:35 Room Air Lab & Micro Results (Past 24 Hours) RBC 4.91 M/uL (4.70-6.10) 05/10/23 WBC 4.26 K/ul (4.8-10.8) L 05/10/23 Hgb 11.4 g/dl (14.0-18.0) L 05/10/23 Hct 38.1 % (42.0-52.0) L 05/10/23 MCV 77.6 fL (80.0-100.0) L 05/10/23 MCH 23.2 pg (25.0-34.0) L 05/10/23 MCHC 29.9 g/dL (32.0-36.0) L 05/10/23 RDW Standard Deviation 53.6 fL (36.4-46.3) H 05/10/23 RDW Coefficient of Variation 19.1 % (11.5-14.5) H 05/10/23 Plt Count 172 K/uL (130-400) 05/10/23 MPV 9.3 fL (9.4-12.4) L 05/10/23 Neutrophils (%) (Auto) 80.1 % 05/10/23 Lymphocytes (%) (Auto) 17.4 % 05/10/23 Monocytes # (Auto) 0.09 K/uL (0.11-0.59) L 05/10/23 Eosinophils # (Auto) 0.00 K/uL (0.00-0.50) 05/10/23 Immature Granulocyte % (Auto) 0.2 % 05/10/23 Neutrophils # (Auto) 3.41 K/uL (1.40-6.50) 05/10/23 Lymphocytes # (Auto) 0.74 K/uL (1.20-3.40) L 05/10/23 Monocytes # (Auto) 0.09 K/uL (0.11-0.59) L 05/10/23 Eosinophils # (Auto) 0.00 K/uL (0.00-0.50) 05/10/23 Basophils # (Auto) 0.01 K/uL (0.00-0.20) 05/10/23 Immature Granulocyte # (Auto) 0.01 K/uL (0.01-0.20) 3 Na 138 mmol/L (136-145) 05/10/23 K 4.6 mmol/L (3.5-5.1) 05/10/23 Cl 106 mmol/L (98-107) 05/10/23 CO2 27 mmol/L (21-32) 05/10/23 Anion Gap 5 (3-11) 05/10/23 BUN 28 mg/dl (6-23) H 05/10/23 Creatinine 1.30 mg/dl (0.6-1.4) 05/10/23 Estimated GFR ( Amer) 56.1 ml/min 05/10/23 Estimated GFR (Non-Af Amer) 48.4 ml/min 05/10/23 BUN/Creatinine Ratio 21.5 (10-20) H 05/10/23 Glu 202 mg/dl (70-99(Fasting)) H 05/10/23 Ca 10.5 mg/dl (8.6-10.3) H 05/10/23 Calcium Level 10.5 mg/dl (8.6-10.3) H 05/10/23 07:19 Diagnostic Findings (Past 24 Hours) Chest CTA 05/09/23 13:31 CT angio chest PE protocol CLINICAL HISTORY: PE TECHNIQUE: Multidetector row helical CT of the chest was performed with angiographic protocol. Coronal and sagittal reformations were obtained. Coronal and sagittal MIPS were obtained from the axial data set and were submitted for review. Automated dose lowering techniques and/or adjustment according to patient size were utilized for this exam. CT DOSE: 394.79 mGy.cm Comparison: Comparison is made to CT chest 03/06/2023 FINDINGS: Lungs and pleura: Diffuse centrilobular emphysema is seen most prominent in the upper lobes. Airspace consolidation is noted in the bilateral lower lungs. Possible trace bilateral pleural effusions. Heart and pericardium: Cardiomegaly is seen with biatrial enlargement. Vessels: Evaluation for pulmonary embolism is limited due to suboptimal contrast timing. No evidence of central, lobar, or segmental embolus. Mediastinum and tyrel: Unremarkable. Chest wall and lower neck: Unremarkable. Abdomen: Unremarkable. Bones: Degenerative changes in the thoracic spine. IMPRESSION: 1. Bilateral airspace opacities are compatible with aspiration/pneumonia demonstrating evolutionary change from prior exam. Bronchial wall thickening and emphysema are noted. 2. Exam is limited by suboptimal contrast timing, however no definite pulmonary embolus is seen. ACT 112: Negative or not required by law. Electronically signed by: Michi Dias M.D. 05/09/2023 2:37 PM I & O Totals 24 Hours 05/09/23 05/10/23 05/11/23 06:59 06:59 06:59 Intake Total 286 / 286 468 / 468 Balance 286 / 286 468 / 468 Cumulative 05/09/23 11:59 thru 05/10/23 14:13 Intake Total 754 Balance 754 RT Ventilator Mngmt (Last Documented) Ventilator Ordered Settings Respiratory Rate 18 05/10/23 14:13 Ventilator - PT Measurements Respiratory Rate 18 PG Care Time/CCT Total # of Minutes Spent Total Time Spent with Patient: Total time spent is greater than 50% in coordination of care (as documented) at patient's floor/unit and/or counseling patient:55 Coding Level of Care Code 63179 IN/OBS CONSULT LVL 3,45M Diagnoses Bilateral pneumonia J18.9 Lung location: lower lobe of lung Pneumonia type: due to unspecified organism COPD (chronic obstructive pulmonary disease) J44.9 COPD type: unspecified COPD Cough with hemoptysis R04.2 Pulmonary hypertension I27.20 Solitary pulmonary nodule R91.1 OSORIO (dyspnea on exertion) R06.09 Time Spent (min) 55
--- NOTE | 2023-05-10 14:52 | Electrocardiogram Report ---
Test Reason : Blood Pressure : / mmHG Vent. Rate : 051 BPM Atrial Rate : 051 BPM P-R Int : 206 ms QRS Dur : 076 ms QT Int : 406 ms P-R-T Axes : 000 065 071 degrees QTc Int : 374 ms Sinus bradycardia Otherwise normal ECG When compared with ECG of 11-FEB-2023 15:16, Vent. rate has decreased BY 25 BPM Confirmed by Roni Samaniego ([id number]) on 05/10/2023 2:52:35 PM Referred By: REFERRED SELF Confirmed By:Angus Samaniego
[2023-05-10 22:18] LABS: Appearance Urine Clear (Clear); Bacteria Urine Automated Negative (Negative); Bilirubin Urine Negative (Negative); Blood Urine Negative (Negative); Color Urine Yellow; Glucose Urine UA Negative (Negative); Ketones Urine Negative (Negative); Leukocyte Esterase Urine Negative (Negative); Nitrite Urine Negative (Negative); Protein Urine Trace (Negative); RBC Urine Automated 0-4 /hpf (0-4); Specific Gravity Urine 1.024 (1.000-1.030); Urobilinogen Urine Negative (Negative)
[2023-05-11] MEDS: AMPICILLIN/SULBACTAM SOD 3,000 MG in 0.9 % SODIUM CHLORIDE 100 ML IV SCH ×3 (01:27→13:06)
[2023-05-11 06:10] LABS: Basophils # (auto) 0.04 K/uL (0.00-0.20); Basophils % (auto) 0.5 %; Eosinophils # (auto) 0.12 K/uL (0.00-0.50); Eosinophils % (auto) 1.4 %; Hemoglobin 10.5 g/dl (14.0-18.0); Immature Granulocytes # (auto) 0.03 K/uL (0.01-0.20); Immature Granulocytes % (auto) 0.3 %; Lymphocytes # (auto) 1.26 K/uL (1.20-3.40); Lymphocytes % (auto) 14.3 %; Mean Corpuscular Hemoglobin 23.1 pg (25.0-34.0); Mean Corpuscular Volume 76.9 fL (80.0-100.0); Mean Platelet Volume 9.1 fL (9.4-12.4); Monocytes # (auto) 0.58 K/uL (0.11-0.59); Monocytes % (auto) 6.6 %; Neutrophils # (auto) 6.79 K/uL (1.40-6.50); Neutrophils % (auto) 76.9 %; Platelet Count 173 K/uL (130-400); RDW Coefficient of Variation 18.8 % (11.5-14.5); RDW Standard Deviation 51.8 fL (36.4-46.3); Red Blood Count 4.55 M/uL (4.70-6.10); White Blood Count 8.82 K/ul (4.8-10.8)
[2023-05-11 06:32] LABS: BUN Creatinine Ratio 24.6 (10-20); Calcium 10.1 mg/dl (8.6-10.3); Creatinine Clr Calc Pharmacy 32.8 ml/min; Est GFR (African American) 58.2 ml/min; Est GFR (Non-African American) 50.2 ml/min; Potassium 4.2 mmol/L (3.5-5.1)
[2023-05-11] MEDS: guaiFENesin 600 MG TABCR PO SCH (07:58)
[2023-05-11] MEDS: OMEGA-3 (PURIFIED FISH OIL) 1 GM CAP PO SCH (07:58)
[2023-05-11] MEDS: METOPROLOL SUCC 50MG EXT REL TAB PO SCH (07:58)
[2023-05-11] MEDS: PANTOprazole 40 MG TAB PO SCH (07:59)
[2023-05-11] MEDS: FINASTERIDE 5 MG TAB PO SCH (07:59)
[2023-05-11] MEDS: CEROVITE ADV FORMULA TAB PO SCH (07:59)
[2023-05-11] MEDS: FLUTICASONE FUROATE 100MCG 14 PUFFS/INHALER INH SCH (09:02)
[2023-05-11] MEDS: UMECLIDINIUM/VILANTEROL 62.5/25MCG 7 PUFFS/INHALER INH SCH (09:03)
--- NOTE | 2023-05-11 09:16 | Pulmonology Progress Note ---
Date of Service May 11, 2023 Assessment & Plan (1) Bilateral pneumonia: Lung location: lower lobe of lung Pneumonia type: due to unspecified organism Qualified Code(s): J18.9 - Pneumonia, unspecified organism (2) COPD (chronic obstructive pulmonary disease): COPD type: unspecified COPD Qualified Code(s): J44.9 - Chronic obstructive pulmonary disease, unspecified (3) Cough with hemoptysis: (4) Pulmonary hypertension: (5) Solitary pulmonary nodule: (6) OSORIO (dyspnea on exertion): Plan Impression: 87-year-old male with history of COPD Gold class D. Chronic respiratory failure with hypoxia requiring supplemental oxygen at 3 L/min by nasal cannula . Patient presented for concerns with hemoptysis. No sputum samples been collected. No leukocytosis. Procalcitonin 0.12 NG per mL. Patient reports that he feels as though he is at baseline. He has no acute concerns at this time. Greater than [id number] smoking history. Patient states he quit smoking 3 years ago. Recommendations: 1. Hemoptysis: Resolved. Suspect potential bronchitis. Continue to follow clinically. 2. COPD: Stable. Do not see signs of an exacerbation. Continue Trelegy on discharge as well as azithromycin. Pulmonary outpatient follow-up as previously scheduled 3. Tobacco abuse history: Patient was congratulated on smoking cessation and encouraged to remain free of all tobacco products 4. Chronic respiratory failure with hypoxia: At baseline oxygen requirement. 5. Basilar airspace opacity with some bronchiectasis. Sputum culture pending. Agree with transition to Augmentin for 7 days then discontinue. Outpatient follow-up with Dr. Vieyra as scheduled Patient is appropriate to dismiss from the hospital from a pulmonary standpoint. Pulmonary will sign off. Feel free to contact us with questions or concerns Admission and Anticipated Discharge Date Admission Date: May 09, 2023 Subjective Patient seen and examined. EMR reviewed. Discussed with KHADAR. The patient feels that he is breathing okay. Has not had any additional hemoptysis. He is not really coughing or bringing up phlegm. No wheezing. His oxygen requirement is at baseline. He is tolerating a diet. He feels like he is about at his baseline. Review of Systems Review of Systems: All systems reviewed & are unremarkable except as noted in Subjective Physical Exam Constitutional: WD/WN, vitals as above Neck: trachea midline, no thyromegaly Respiratory: normal respiratory effort, lungs clear to auscultation Cardiovascular: RRR, no murmur, no edema Gastrointestinal (Abdomen): normal bowel sounds, soft, nontender, no hepatosplenomegaly Musculoskeletal: Extremities: extremities normal to inspection Skin: no rashes, warm and dry Neurologic: Nonfocal exam Lymphatic: no cervical lymphadenopathy Results & Data Results & Data Vital Signs (Past 12 Hours) Vital Signs Temp Pulse Pulse Resp BP Pulse Ox O2 Del Method 05/11/23 07:38 36.3 C L 52 L 18 158/69 H 91 Nasal Cannula 05/11/23 07:20 47 L 05/11/23 03:52 36.4 C L 50 L 18 159/71 H 97 Nasal Cannula 05/10/23 22:49 36.5 C 54 L 18 158/74 H 99 Nasal Cannula 05/10/23 23:07 56 L O2 Flow Rate 05/11/23 07:38 3 05/11/23 07:20 05/11/23 03:52 2.5 05/10/23 22:49 2.5 05/10/23 23:07 Laboratory Results 05/11/23 05:47 05/11/23 05:47 Sputum culture pending PG Care Time/CCT Total # of Minutes Spent Total Time Spent with Patient: Total time spent is greater than 50% in coordination of care (as documented) at patient's floor/unit and/or counseling patient: Coding Level of Care Code 70516 SUB INP/OBS CARE 2/35MIN Diagnoses Bilateral pneumonia J18.9 Lung location: lower lobe of lung Pneumonia type: due to unspecified organism COPD (chronic obstructive pulmonary disease) J44.9 COPD type: unspecified COPD Cough with hemoptysis R04.2 Pulmonary hypertension I27.20 Solitary pulmonary nodule R91.1 OSORIO (dyspnea on exertion) R06.09
--- NOTE | 2023-05-11 14:00 | Discharge Summary ---
Date of Service May 11, 2023 Admission HPI Per Admitting Provider Eliazar is an 87-year-old male with a past medical history of COPD, iron deficiency, pulmonary hypertension, NSVT, CKD 3, abdominal aortic aneurysm, BPH with LUTS who presents to the emergency department with shortness of breath and difficulty breathing and increased cough over the last 4 days. He is recommended for admission for suspected worsening pneumonia with demand ischemia. Last beam radiation was in November Seen with his david More fatigue, slightly more short of breath in the last week. Cough x4 days, but seems to just be mucous whih is dark diaz/silver color. Intermitently has hemoptysis Denies history of aspiration recently. Denies problems swallowing. No fevers, chills or seast No chest pain NO further followup for lung nodule yet, is waiting for followup with Dr. Brunson and serial imaging. Medical History: Reviewed Medications: Reviewed Surgical History: Reviewed Family history: Reviewed Allergies: Reviewed Social History: Reviewed Code Status:Full Code Principal Diagnosis problem 1 Discharge Exam General: A&Ox3. NAD. Cooperative. HEENT: Atraumatic, normocephalic. Vision/hearing grossly Pulm: Bibasilar crackles symmetrical chest rise. No increased work of breathing. No respiratory distress. Cardiac: RRR, -mrg. Radial pulses intact and symmetrical. Abdominal: Nontender, nondistended, soft. BS present. Discharge Data Allergies Allergy/AdvReac Type Severity Reaction Status Date / Time roflumilast [From [facility]] Allergy Intermediate rash Verified 05/09/23 15:12 Consultations 05/09/23 15:10 ED Decision to Admit Stat 05/10/23 09:23 Consult Pulmonology Routine Ordered Studies 05/09/23 13:31 CT angio chest PE protocol Stat Hospital Course (1) Bilateral pneumonia: Hypoxic respiratory failure 2/2 pneumonia? Possible aspiration pneumonia No leukocytosis Procalcitonin negative CTAchest: Bilateral airspace opacities suspicious for aspiration pneumonia with evolution compared to prior, no obvious PE but limited by timing of contrast CXR: Interval progression of bibasilar airspace opacities suspicious for progressive pneumonia, suspicious for aspiration pneumonia Received Rocephin in ER Admitted on Unasyn, target Augmentin for discharge if clinically improving and at baseline oxygen level SPO2 goal greater than 90% Admitting VBG 7.34/51/26/28, mild respiratory acidosis -D/W Pulmonary, will treat as a COPD exacerbation. Patient reports no signs of aspirating. Patient performed with with eating while in the hospital. Speech did require any additional workup unless patient later becomes symptomatic or has evidence or aspiration. Pulmoanry recommended discharge on augmentin for 7 days Lung Nodule - PET 10/27: 1. Intense FDG uptake associated with the 1.7 cm lobular peripheral nodule within the right upper lobe. Therefore, this is highly suspicious for a primary bronchogenic malignancy.2. Mediastinal and right hilar lymphadenopathy again noted demonstrating mild FDG uptake. This is nonspecific and could be reactive to the suspected pneumonia or represent early metastatic change.3. FDG uptake associated with the patchy bibasilar densities which favor a pneumonia.4. There is a new 11 mm nodular opacity within the base of the left lower lobe demonstrating mild FDG uptake. This favors a component of the pneumonitis. However, this bears watching on future examinations. Had radiation therapy 10/2022, his every 3 months follow-up as outpatient. Macrocytic anemia Hemoglobin 10.5, uptrending from prior measurements Microcytic Denies recent BRBPR/GIB. Patient considering outpatient EGD versus pill endoscopy as a patient Continue PPI. Ferritin 17.3 in February. Defer iron infusion in the setting of worsening pneumonia History of COPD with hypoxia Gold class D Last PFTs FEV1 57%, FEV1/FVC ratio 43%, DLCO 60% Patient with home supplemental oxygen up to 3 L as needed, currently on 3 L Suspect acute exacerbation in the setting of pneumonia Received 125 mg methylprednisolone in ER With wheezing we will continue twice daily, and antibiotics as noted above Continue home inhaler/formulary equivalent CAD, elevated troponin With history of CAD and prior type II GA Similar noted 10/2022, at that time reviewed with cardiology and patient who does not wish for invasive testing and restratification. Suspect current troponin elevation is due to demand ischemia in the setting of progressive pneumonia Trended BPH with LUTS Continue finasteride History of aortic aneurysm repair Outpatient follow-up, no change in management at this time. No abdominal pain (2) Hypoxia: (3) COPD (chronic obstructive pulmonary disease): (4) Cough with hemoptysis: (5) Multifocal pneumonia: Total Time Total Time Spent Total Time Spent (In Minutes): 35 Discharge Plan Discharge Items Patient Disposition: Home - Self-Care Reason For Visit: AHRF 10/06 PNEUOMONIA Discharge Diagnosis: Bronchitis Activity: Resume your previous activity Non-emergency contact: Primary Care Provider Call non-emergency contact if: you have any medication questions Follow-up/Referrals: Gabino Fisher MD [Primary Care Provider] - 05/15/23 9:25 am Diet: Regular Addtl Attending Provider Instructions: Recommend you continue with Augmentin for 7 days then discontinue. Please follow-up with Dr. Vieyra as scheduled Also recommend to continue the trelegy take the azithromycin once a day Monday and Monday. Pending Studies at Discharge: No Stand-Alone Forms: My [facility] [employer], Smoking Cessation Medications and DC Order Prescriptions: New amoxicillin-pot clavulanate 875-125 mg Tablet 1 tab PO BIDM Qty: 14 0RF azithromycin 250 mg tablet 250 mg PO MOWEFR Qty: 18 0RF Continued guaifenesin [Mucinex] 600 mg tablet extended release 12hr 600 mg PO BID Qty: 180 1RF albuterol sulfate [ProAir HFA] 90 mcg/actuation HFA aerosol inhaler 2 puff inhalation Q6H PRN (Reason: Shortness Of Breath) Qty: 3 1RF (DME) Portable Oxygen Misc See Rx Instructions .MEDSUPPLY Qty: 1 0RF Rx Instructions: Pt may increase O2 to 3lpm via nc PRN to maintain O2 Sat above 88% WILIAN 99 metoprolol succinate 50 mg tablet extended release 24 hr 50 mg PO DAILY Qty: 90 3RF colchicine (gout) 0.6 mg capsule 0.6 mg PO BID Qty: 14 1RF sodium chloride 3 % solution for nebulization 4 ml inhalation BID Qty: 240 11RF ipratropium-albuterol 0.5 mg-3 mg(2.5 mg base)/3 mL solution for nebulization 3 ml inhalation Q8H PRN (Reason: shortness of breath or wheezing) Qty: 180 5RF glucosamine-chondroitin [Osteo Bi-Flex] 250-200 mg tablet 2 tab PO QAM Rx Instructions: give after food/meal (DME) Flutter Valve Device See Rx Instructions .MEDSUPPLY Qty: 1 0RF Rx Instructions: Use it every 6 hours when awake. finasteride 5 mg tablet 5 mg PO DAILY Qty: 90 3RF (DME) Flutter Valve Device See Rx Instructions .MEDSUPPLY Qty: 1 0RF Rx Instructions: Use it every 6 hours when awake. omega-3 acid ethyl esters 1 gram capsule 1 cap PO QAM (DME) nebulizers Misc See Rx Instructions miscellaneous .MEDSUPPLY Qty: 1 0RF Rx Instructions: Use BID with saline in the nebulizer and as directed. Lifetime need. Trelegy Ellipta 100-62.5-25 mcg blister with device 1 inh inhalation DAILY Qty: 3 1RF diclofenac sodium 1 % gel 4 g topical QID PRN (Reason: Pain) pantoprazole 40 mg tablet,delayed release (DR/EC) 40 mg PO DAILY Qty: 30 2RF green tea leaf extract [Green Tea] 250 mg Capsule 500 mg PO QAM Centrum Silver Ultra Men's 300-600-300 mcg Tablet 1 tab PO QAM Discharge Orders: Discharge Order (Routine); Ordered 05/11/23 Ordered By: Victor Hugo Coffman Admission Data Admit Date/Time: 05/09/23 16:18 Attending Provider: Victor Hugo Coffman Admit Provider: Ignacio Cunningham Primary Care Provider: Gabino Fisher Other Providers: Ignacio Cunningham ; Zacarias Oliva Other Interventions: Discharge Summary Assessment (RN) Last Done: 05/11/23 14:32 Coding Level of Care Code 69842 INP/OBS DISCH >30 MIN Diagnoses Bilateral pneumonia J18.9 Lung location: lower lobe of lung Pneumonia type: due to unspecified organism Hypoxia R09.02 COPD (chronic obstructive pulmonary disease) J44.9 COPD type: unspecified COPD Cough with hemoptysis R04.2 Multifocal pneumonia J18.9
[2023-05-11] MEDS ORDERED: AMOXICILLIN/CLAVULANATE 875 MG TAB PO SCH (17:00)
[2023-05-11] MEDS ORDERED: SODIUM CHLOR 7% 4 ML NEB INH SCH (19:00)
== END 2023-05-11 15:14 | disposition home or self-care (01) | DRG 177 ==
LOC: ED 11:59 → SUATTDRO 16:18 → EDINP 16:18 → 4W 05-10 18:00